=== PATIENT | female | born 1970 | race Caucasian/White ===

== ENCOUNTER → 2020-04-25 10:59 | Outpatient (BNVA) | payer BC, SELFPAY | PROVIDERS: Family Provider Nurse Practitioner; PCP Nurse Practitioner; Visit Provider Nurse Practitioner | DX: Z20.828 Contact with and (suspected) exposure to other viral communicable diseases (principal) | CPT/HCPCS: 87635 ==

== ENCOUNTER → 2021-02-04 15:45 | Outpatient (BNVA) | payer BC, SELFPAY | PROVIDERS: Family Provider Nurse Practitioner; PCP Nurse Practitioner; Visit Provider Obstetrics & Gynecology | DX: Z00.00 Encounter for general adult medical examination without abnormal findings (principal); Z12.39 Encounter for other screening for malignant neoplasm of breast; Z12.4 Encounter for screening for malignant neoplasm of cervix | CPT/HCPCS: 88175 ==

== ENCOUNTER 2021-02-05 13:38 | Outpatient (CLI) | payer BC, SELFPAY ==
--- NOTE | 2021-02-05 13:30 | MM_ITS ---
WS: [id number] SCREENING DIGITAL MAMMOGRAM WITH CAD HISTORY: Z12.39 - Encounter for other screening for malignant neop... COMPARISON: None available. Bilateral CC and MLO views submitted. Computer aided detection analyzed. Breast composition: The breasts are heterogeneously dense, which may obscure small masses. Bilateral asymmetries within each breast. There is no dominant mass or distortion. These findings are similar t hroughout each breast. MM/[place] [id number] IMPRESSION: BI-RADS: 2-Benign FOLLOW UP: 1 Year Follow-up
== END 2021-02-05 13:39 | disposition home or self-care (01) ==
LOC: RADSHAW 13:46
PROVIDERS: PCP Nurse Practitioner Family; Visit Provider Obstetrics & Gynecology
DX: Z12.31 Encounter for screening mammogram for malignant neoplasm of breast (principal)
CPT/HCPCS: 77067

== ENCOUNTER → 2023-08-18 12:06 | Outpatient (BNVA) | payer BC, SELFPAY | PROVIDERS: PCP Nurse Practitioner Family; Visit Provider Nurse Practitioner Family | DX: F41.9 Anxiety disorder, unspecified (principal); E66.3 Overweight; N95.9 Unspecified menopausal and perimenopausal disorder; Z83.3 Family history of diabetes mellitus; I10 Essential (primary) hypertension | CPT/HCPCS: 80053; 80061; 83036; 84443 ==

== ENCOUNTER → 2023-09-16 10:28 | Outpatient (BNVA) | payer BC, SELFPAY | PROVIDERS: PCP Nurse Practitioner Family; Visit Provider Nurse Practitioner Family | DX: G89.29 Other chronic pain (principal); M41.9 Scoliosis, unspecified; Z87.81 Personal history of (healed) traumatic fracture | CPT/HCPCS: 72100 ==

== ENCOUNTER → 2024-02-28 11:10 | Outpatient (BNVA) | payer SELFPAY | PROVIDERS: PCP Nurse Practitioner Family; Visit Provider Nurse Practitioner Family | DX: E78.2 Mixed hyperlipidemia (principal); F41.9 Anxiety disorder, unspecified; F33.41 Major depressive disorder, recurrent, in partial remission; I10 Essential (primary) hypertension | CPT/HCPCS: 80053; 80061; 85025 ==

== ENCOUNTER 2024-03-24 13:24 | Emergency (ER) | payer BC, SELFPAY ==
[2024-03-24 13:45] VITALS: BP 109/72; PULSE 102; RESP 17; TEMP 37.1; O2SAT 97; BMI 30.7
--- NOTE | 2024-03-24 13:56 | W.ED.ABDPA2 ---
HPI - Abdominal Pain General: Chief Complaint: Abdominal Pain Stated Complaint: abd pain, n/v Time Seen by Provider: 03/24/24 13:51 History of Present Illness: 53-year-old female comes in today with abdominal pain along with nausea and vomiting for about 1 week. Patient started having a fever today. Patient also noticed some blood in her stool. Patient has a history of hypertension. Patient denies any other chronic medical problems or abdominal surgeries. Patient has recently submitted a Cologuard test but has not had results yet. Associated Symptoms: Reports nausea and vomiting Related Data Previous Rx's Medication Instructions Recorded pen needle, diabetic 33 gauge x #100 ea 09/20/23 (Advocate Pen Needle) diphenhydramine 25 See Rx Instructions PO .QHS PRN 12/21/23 mg-acetaminophen 500 mg tablet pain 90 days #240 tabs (Tylenol PM Extra Strength) amitriptyline 10 mg tablet 20 mg (2 x 10 mg) PO DAILY 30 days 02/28/24 #60 tabs clonidine HCl 0.1 mg tablet See Rx Instructions .Route 02/28/24 .COMPLEX #30 tabs diclofenac sodium 100 mg 100 mg PO BID 30 days #60 tabs 02/28/24 tablet,extended release 24 hr doxepin 10 mg capsule 10 mg PO .QHS 30 days #30 caps 02/28/24 fexofenadine-pseudoephedrine ER 1 tab PO QAM PRN sinus symptoms 02/28/24 180 mg-240 mg tablet,ext.release #20 tabs 24 hr (Brisa-D 24 Hour) liraglutide 0.6 mg/0.1 mL (18 mg/3 3 mg (0.5 mL) SUBCUT Q24H 30 days 02/28/24 mL) subcutaneous pen injector #15 mL (Victoza 3-Segundo) lisinopril 10 mg tablet 10 mg PO BID 30 days #60 tabs 02/28/24 metoprolol succinate 25 mg 25 mg PO .hs 30 days #30 tabs 02/28/24 tablet,extended release 24 hr pantoprazole 40 mg tablet,delayed 40 mg PO DAILY 30 days #30 tabs 02/28/24 release paroxetine HCl 20 mg tablet See Rx Instructions .Route 02/28/24 .COMPLEX #30 tabs ciprofloxacin HCl 500 mg tablet 500 mg PO BID #14 tabs 03/24/24 (Cipro) prednisone 20 mg tablet 20 mg PO BID 7 days #14 tabs 03/24/24 Allergies Allergy/AdvReac Type Severity Reaction Status Date / Time No Known Allergies Allergy Verified 03/24/24 13:48 Review of Systems General: Reports: 10 or more systems reviewed and unremarkable except in HPI and below GI: Reports: abdominal pain, nausea and vomiting PFS ED PFSH: Medical History (Updated 03/24/24 @ 15:39 by MORA Charles) Anxiety Diagnosed in 2019 and has been on medication as needed managed by her primary care provider. She does not have a therapist. No pertinent past medical history Denies diabetes, asthma, hypertension, seizures, DVT/PE PCP: MORA [facility] Surgical History History of foot surgery x 2 -2010--fracture of right ankle with surgery -2010--fracture of left leg with surgery History of tubal ligation Laparoscopic procedure done in 1999 History of dilation and curettage --done for retained placenta after delivery of her demise Family History Father Hypertension Stroke Heart disease Family/Other Hyperlipidemia paternal aunt Breast cancer maternal cousin, diagnosed at age 61 Uterine cancer paternal aunt, diagnosed in her 40s or 50s Heart disease paternal aunt Denies family history of Ovarian cancer Diabetes Thyroid disease Social History Smoking and tobacco/nicotine status: former use of tobacco/nicotine Quit status (tobacco/nicotine): has quit using Lives independently: Yes Household members: spouse Housing: House Marital status: Current occupational status: employed Sexually active: Yes Current gender identity: Female Physical Exam Const: COMMON NORMALS: alert HENMT: COMMON NORMALS: normocephalic HEAD & SCALP: normocephalic Neck/C-Spine: COMMON NORMALS: full ROM Resp: COMMON NORMALS: normal respiratory effort Cardio: COMMON NORMALS: regular rate RATE: regular rate GI: COMMON NORMALS: Soft to palpation PALPATION: Yes Soft to palpation, Yes Tenderness to palpation present (GI) (General), No Guarding due to palpation present (GI) and No Rigid due to palpation Back/Pelvis: COMMON NORMALS: thoracic and lumbar spine normal to inspection Extremity: COMMON NORMALS: full ROM Neuro: SENSORIUM/ORIENTATION: Yes alert Skin: COMMON NORMALS: turgor normal GENERAL SKIN EXAM: turgor normal Course Vital Signs: Vital signs: Vital Signs Temperature 98.7 F 03/24/24 13:45 Pulse Rate 100 03/24/24 15:40 Respiratory Rate 16 03/24/24 15:40 Blood Pressure 164/105 03/24/24 15:40 Pulse Oximetry 98 03/24/24 15:40 Oxygen Delivery Me thod Room Air 03/24/24 15:40 MDM - Abdominal Pain Medical Decision Making 53-year-old female comes in today for complaints of abdominal pain with nausea and vomiting for about 1 week. Patient noticed a fever starting last night. Patient appears nontoxic. Patient appears in mild pain. Patient reports pain on a scale of 10 at a 8. Abdomen is soft with some generalized tenderness. No guarding. Positive rebound. Differential diagnosis includes not limited to diverticulitis, appendicitis, gallbladder disease, renal calculi, gastroenteritis, colitis. CBC noted some leukocytosis at 16,000. CMP showed some mild elevation in alkaline phosphatase in the 200s. Patient sodium was 133. Urinalysis was unremarkable. CT of the abdomen pelvis noted diffuse colitis with some lymphadenopathy. Radiologist recommended follow-up for colonoscopy for further evaluation due to the lymphadenopathy. Patient will be treated for infectious versus inflammatory colitis with prednisone and Cipro. Patient and family both reported understanding. Lab Data 03/24/24 14:16 03/24/24 14:16 Labs/Radiology: Radiology Impressions Abdomen/Pelvis CT 03/24/24 13:59 IMPRESSION: 1. Diffuse Wall Thickening: Noted in the ascending colon, hepatic flexure, and transverse colon, concerning for colitis. 2. Marked High-Density Material: Observed within the distal small bowel, cecum, and distal large bowel, likely representing ingested material. 3. Right Lower Quadrant Lymphadenopathy: Measuring up to 1 centimeter. Colonoscopy is recommended after symptom resolution to exclude an underlying neoplastic process. Laboratory Results WBC 16.27 10^3/uL (3.29-11.43) H 03/24/24 14:16 RBC 3.39 10^6/uL (3.85-5.65) L 03/24/24 14:16 Hgb 9.40 g/dL (11.27-16.99) L 03/24/24 14:16 Hct 30.0 % (36-47) L 03/24/24 14:16 MCV 88.5 fl (85-98) 03/24/24 14:16 MCH 27.7 pg (27-33) 03/24/24 14:16 MCHC 31.3 g/dL (30-55) 03/24/24 14:16 RDW 16.8 % (12.1-15.1) H 03/24/24 14:16 Plt Count 763 10^3/cmm (157-399) H 03/24/24 14:16 MPV 8.5 fL (7.4-10.4) 03/24/24 14:16 Neut % (Auto) 85.0 % 03/24/24 14:16 Lymph % (Auto) 10.3 % 03/24/24 14:16 [place] % (Auto) 3.7 % 03/24/24 14:16 Eos % (Auto) 0.3 % 03/24/24 14:16 Baso % (Auto) 0.2 % 03/24/24 14:16 Neut # (Auto) 13.82 10^3/uL (1.8-7.7) H 03/24/24 14:16 Lymph # (Auto) 1.7 10^3/uL (0.8-4.8) 03/24/24 14:16 [place] # (Auto) 0.6 10^3/uL (0.2-0.9) 03/24/24 14:16 Eos # (Auto) 0.1 10^3/uL (0.0-0.8) 03/24/24 14:16 Baso # (Auto) 0.0 10^3/uL (0.0-0.1) 03/24/24 14:16 Nucleated RBC % (auto) 0 % 03/24/24 14:16 Nucleated RBCs # 0.0 /100WBC 03/24/24 14:16 Sodium 133 mmol/L (136-145) L 03/24/24 14:16 Potassium 4.3 mmol/L (3.5-5.1) 03/24/24 14:16 Chloride 99 mmol/L (98-107) 03/24/24 14:16 Carbon Dioxide 23 mmol/L (22-29) 03/24/24 14:16 Anion Gap 15.3 (5-19) 03/24/24 14:16 BUN 5 mg/dL (6-20) L 03/24/24 14:16 Creatinine 0.7 mg/dL (0.5-0.9) 03/24/24 14:16 GFR Calculation 86.9 mL/min (90-130) L 03/24/24 14:16 Glucose 115 mg/dL (65-115) 03/24/24 14:16 Calculated Osmolality 274 mOsm/kg (285-295) L 03/24/24 14:16 Calcium 8.3 mg/dL (8.5-10.5) L 03/24/24 14:16 Total Bilirubin 0.2 mg/dL (0.15-1.2) 03/24/24 14:16 AST 27 U/L (0-32) 03/24/24 14:16 ALT 16 U/L (0-33) 03/24/24 14:16 Alkaline Phosphatase 247 U/L (35-105) H 03/24/24 14:16 Total Protein 6.6 g/dL (6.6-8.7) 03/24/24 14:16 Albumin 3.1 g/dL (3.5-5.2) L 03/24/24 14:16 Globulin 3.5 g/dL (1.3-4.6) 03/24/24 14:16 Lipase 7 U/L (13-60) L 03/24/24 14:16 Urine Color Yellow (Yellow) 03/24/24 14:15 Urine Appearance Clear (CLEAR) 03/24/24 14:15 Urine pH 6.5 (5-7) 03/24/24 14:15 Ur Specific [place]den 1.009 (1.005-1.030) 03/24/24 14:15 Urine Protein Negative (Negative) 03/24/24 14:15 Urine Glucose (UA) Negative (Normal) 03/24/24 14:15 Urine Ketones Negative (Negative) 03/24/24 14:15 Urine Blood Negative (Negative) 03/24/24 14:15 Urine Nitrate Negative (Negative) 03/24/24 14:15 Urine Bilirubin Negative (Negative) 03/24/24 14:15 Urine Urobilinogen 0.2 mg/dL (Negative) 03/24/24 14:15 Ur Leukocyte Esterase 2+ (Negative) A 03/24/24 14:15 Urine RBC 0-2 /hpf (0-2) 03/24/24 14:15 Urine WBC 6-10 /hpf (0-5) 03/24/24 14:15 Ur Squamous Epith Cells 11-20 /hpf (0-5) 03/24/24 14:15 Amorphous Sediment Not Reportable 03/24/24 14:15 Urine Bacteria 2+ /hpf (NONE) H 03/24/24 14:15 Hyaline Casts 0-4 /lpf H 03/24/24 14:15 All radiology interpretation(s) finalized by discharge Discharge Plan Discharge Patient Disposition: Home Clinical Impression: Colitis Condition: Stable Prescriptions: New Cipro 500 mg tablet 500 mg PO BID Qty: 14 0RF prednisone 20 mg tablet 20 mg PO BID 7 Days Qty: 14 0RF No Action (DME) pen needle, diabetic [Advocate Pen Needle] 33 gauge x 5/32 needle See Rx Instructions .Route Qty: 100 1RF Rx Instructions: As directed Tylenol PM Extra Strength 25-500 mg tablet See Rx Instructions PO .QHS PRN (Reason: pain) 90 Days Qty: 240 0RF Rx Instructions: 1-2 tabs orally QHS PRN; administer while awake amitriptyline 10 mg tablet 20 mg PO DAILY 30 Days Qty: 60 3RF clonidine HCl 0.1 mg tablet See Rx Instructions .ROUTE .COMPLEX Qty: 30 3RF Dose Instruction: TAKE ONE TABLET BY MOUTH At Bedtime Rx Instructions: TAKE ONE TABLET BY MOUTH At Bedtime diclofenac sodium 100 mg tablet extended release 24 hr 100 mg PO BID 30 Days Qty: 60 3RF doxepin 10 mg capsule 10 mg PO .QHS 30 Days Qty: 30 3RF lisinopril 10 mg tablet 10 mg PO BID 30 Days Qty: 60 3RF metoprolol succinate 25 mg tablet extended release 24 hr 25 mg PO .hs 30 Days Qty: 30 3RF pantoprazole 40 mg tablet,delayed release (DR/EC) 40 mg PO DAILY 30 Days Qty: 30 3RF paroxetine HCl 20 mg tablet See Rx Instructions .ROUTE .COMPLEX Qty: 30 3RF Dose Instruction: TAKE ONE TABLET BY MOUTH DAILY Rx Instructions: TAKE ONE TABLET BY MOUTH DAILY fexofenadine-pseudoephedrine [Brisa-D 24 Hour] 180-240 mg tablet extended release 24 hr 1 tab PO QAM PRN (Reason: sinus symptoms) Qty: 20 0RF Victoza 3-Segundo 0.6 mg/0.1 mL (18 mg/3 mL) pen injector 3 mg SUBCUT Q24H 30 Days Qty: 15 3RF Discharge Orders: Discharge ED (Routine); Ordered 03/24/24 Ordered By: Nickolas Flowers Referrals: Nya Casarez NP [Primary Care Provider] - Discharge Diet: Usual diet Discharge Activity: Increase activity as tolerated Patient Instructions: Colitis (ED) Activity Restrictions/Additional Instructions: Healthy diet and activity. Follow-up with surgeon for colonoscopy. This is recommended due to the abnormality on your CT scan. He will be treated at this time for infectious versus inflammatory colitis. A colonoscopy with biopsy is recommended for further evaluation. Drink plenty of water and fluids. Return to ER for worsening pain, fever greater than 100.4, or new concerns. Coding Level of Care Code ED [employer] Worker for Chalino Yao
--- NOTE | 2024-03-24 13:59 | CTR_ITS ---
PROCEDURE INFORMATION: Exam: CT Abdomen And Pelvis With Contrast Exam date and time: 03/24/2024 2:24 PM Age: 53 years old Clinical indication: Abdominal pain; Localized; Right lower quadrant (rlq); Additional info: Abd pain, general, fever TECHNIQUE: Imaging protocol: Computed tomography of the abdomen and pelvis with contrast. Radiation optimization: All CT scans at this facility use at least one of these dose optimization techniques: automated exposure control; mA and/or kV adjustment per patient size (includes targeted exams where dose is matched to clinical indication); or iterative reconstruction. Contrast material: OMNI 350; Contrast volume: 100 ml; Contrast route: INTRAVENOUS (IV); COMPARISON: CR XR lumbar spine 2-3V* [id number] 09/16/2023 10:33 AM RADIATION DOSE METRICS: Total DLP (mGy-cm): 872.7 FINDINGS: Diaphragm: Small hiatal hernia. Liver: Normal. No mass. Gallbladder and biliary ducts: Normal. No calcified stones. No ductal dilation. Pancreas: Normal. No ductal dilation. Spleen: Normal. No splenomegaly. Adrenal glands: A 2.3 x 1.7-centimeter left adrenal nodule with intrinsic calcifications and a Hounsfield unit measurement of 16, likely representing an adenoma with prior bleeding. Kidneys and ureters: No suspicious renal mass, hydronephrosis, or nephrolithiasis. Ureters are normal. Stomach and bowel: High-density material observed along the distal small bowel and cecum, with upstream submucosal edema and wall thickening of the ascending colon, hepatic flexure, and proximal transverse colon, accompanied by hyperemia. Appendix: No evidence of appendicitis. Intraperitoneal space: Unremarkable. No free air. No significant fluid collection. Vasculature: Unremarkable. No abdominal aortic aneurysm. Lymph nodes: Enlarged mediastinal lymph nodes and right lower quadrant lymphadenopathy, measuring up to 1 centimeter. Urinary bladder: Unremarkable as visualized. Reproductive: Unremarkable as visualized. Bones/joints: Unremarkable. No acute fracture. Soft tissues: Unremarkable. CT/CT abdomen pelvis w con* [id number] IMPRESSION: 1. Diffuse Wall Thickening: Noted in the ascending colon, hepatic flexure, and transverse colon, concerning for colitis. 2. Marked High-Density Material: Observed within the distal small bowel, cecum, and distal large bowel, likely representing ingested material. 3. Right Lower Quadrant Lymphadenopathy: Measuring up to 1 centimeter. Colonoscopy is recommended after symptom resolution to exclude an underlying neoplastic process.
[2024-03-24 14:18] VITALS: BP 110/75; PULSE 100; RESP 16; O2SAT 98
[2024-03-24 14:22] LABS: Basophils % 0.2 %; Eosinophils # 0.1 10^3/uL (0.0-0.8); Eosinophils % 0.3 %; Lymphocytes # 1.7 10^3/uL (0.8-4.8); Lymphocytes % 10.3 %; Mean Corpuscular HGB Conc 31.3 g/dL (30-55); Mean Corpuscular Hemoglobin 27.7 pg (27-33); Mean Corpuscular Volume 88.5 fl (85-98); Mean Platelet Volume 8.5 fL (7.4-10.4); Monocytes # 0.6 10^3/uL (0.2-0.9); Monocytes % 3.7 %; Neutrophils # 13.82 10^3/uL (1.8-7.7); Nucleated Red Blood Cells % 0 %; Platelet Count 763 10^3/cmm (157-399); Red Blood Count 3.39 10^6/uL (3.85-5.65); Red Cell Distribution Width 16.8 % (12.1-15.1); White Blood Count 16.27 10^3/uL (3.29-11.43)
[2024-03-24 14:24] LABS: Charge for UA Resulting for Rev
[2024-03-24] MEDS: iohexol 350 mg/mL 500 mL Btl (per mL) IV (14:26)
[2024-03-24 14:34] LABS: Bilirubin Urine Negative (Negative); Blood Urine Negative (Negative); Glucose Urine UA Negative (Normal); Ketones Urine Negative (Negative); Leukocyte Esterase Urine 2+ (Negative); Nitrate Urine Negative (Negative); Protein Urine Negative (Negative); Specific Gravity, Urine 1.009 (1.005-1.030); Urine Appearance Clear (CLEAR); Urine Color Yellow (Yellow); Urobilinogen Urine 0.2 mg/dL (Negative); pH Urine 6.5 (5-7)
[2024-03-24 14:36] LABS: Bacteria Urine 2+ /hpf; Hyaline Casts Urine 0-4 /lpf; RBC Urine 0-2 /hpf (0-2)
[2024-03-24] MEDS: sodium chloride 0.9% 1,000 ML 999 ML IV (14:38)
[2024-03-24 14:43] LABS: Alanine Aminotransferase 16 U/L (0-33); Albumin Level 3.1 g/dL (3.5-5.2); Alkaline Phosphatase 247 U/L (35-105); Anion Gap 15.3 (5-19); Aspartate Amino Transferase 27 U/L (0-32); Blood Urea Nitrogen 5 mg/dL (6-20); Calcium 8.3 mg/dL (8.5-10.5); Carbon Dioxide 23 mmol/L (22-29); Chloride 99 mmol/L (98-107); Creatinine Clr Calc Pharmacy 97.1447; Globulin 3.5 g/dL (1.3-4.6); Glomerular Filtration Rate 86.9 mL/min (90-130); Glucose 115 mg/dL (65-115); Lipase 7 U/L (13-60); Osmolality Calculated 274 mOsm/kg (285-295); Potassium 4.3 mmol/L (3.5-5.1); Sodium 133 mmol/L (136-145); Total Bilirubin 0.2 mg/dL (0.15-1.2); Total Protein 6.6 g/dL (6.6-8.7)
[2024-03-24 15:40] VITALS: BP 164/105; PULSE 100; RESP 16; O2SAT 98
[2024-03-24] MEDS: ciprofloxacin 500 mg Tablet PO (15:45)
[2024-03-24] MEDS: predniSONE 20 mg Tablet PO (15:45)
[2024-03-24 16:00] VITALS: BP 167/112; PULSE 104; RESP 16; O2SAT 97
[2024-03-24 16:10] VITALS: BP 167/112; PULSE 104; RESP 16; TEMP 37.1; O2SAT 97
--- NOTE | 2024-03-26 09:38 | DCPLANNER ---
messaged gen surg for er f/u
== END 2024-03-24 16:10 | disposition home or self-care (01) ==
PROVIDERS: Emergency Provider Nurse Practitioner Family; PCP Nurse Practitioner Family
DX: K52.9 Noninfective gastroenteritis and colitis, unspecified (principal); Z87.891 Personal history of nicotine dependence
CPT/HCPCS: 36415; 74177; 80053; 81003; 81015; 83690; 85025; 99285; J7030; J7512; Q9967

== ENCOUNTER 2024-05-10 07:52 | Outpatient (CLI) | payer BC, SELFPAY ==
[2024-05-10 08:11] LABS: Basophils % 0.4 %; Eosinophils # 0.1 10^3/uL (0.0-0.8); Eosinophils % 1.1 %; Hematocrit 28.7 % (36-47); Lymphocytes # 1.9 10^3/uL (0.8-4.8); Lymphocytes % 19.6 %; Mean Corpuscular Hemoglobin 27.6 pg (27-33); Mean Corpuscular Volume 88.9 fl (85-98); Mean Platelet Volume 8.3 fL (7.4-10.4); Monocytes # 0.8 10^3/uL (0.2-0.9); Monocytes % 8.4 %; Neutrophils # 6.72 10^3/uL (1.8-7.7); Nucleated Red Blood Cells % 0 %; Platelet Count 752 10^3/cmm (157-399); Red Blood Count 3.23 10^6/uL (3.85-5.65); White Blood Count 9.61 10^3/uL (3.29-11.43)
[2024-05-10 08:30] LABS: Anion Gap 17.8 (5-19); Blood Urea Nitrogen 11 mg/dL (6-20); Calcium 7.3 mg/dL (8.5-10.5); Carbon Dioxide 23 mmol/L (22-29); Chloride 98 mmol/L (98-107); Glomerular Filtration Rate 51.6 mL/min (90-130); Glucose 106 mg/dL (65-115); Osmolality Calculated 278 mOsm/kg (285-295); Potassium 4.8 mmol/L (3.5-5.1); Sodium 134 mmol/L (136-145)
== END 2024-05-10 07:53 | disposition home or self-care (01) ==
LOC: LAB 07:56
PROVIDERS: PCP Nurse Practitioner Family; Visit Provider Student in an Organized Health Care Education/Training Program
DX: Z51.81 Encounter for therapeutic drug level monitoring (principal); R10.9 Unspecified abdominal pain; Z79.1 Long term (current) use of non-steroidal anti-inflammatories (NSAID)
CPT/HCPCS: 36415; 80048; 85025

== ENCOUNTER 2024-05-15 07:29 | Day surgery (SDC) | payer BC, SELFPAY ==
[2024-05-15 07:42] VITALS: BP 100/79; PULSE 118; RESP 18; TEMP 36.6; O2SAT 99
[2024-05-15] MEDS: sodium chloride 0.9% 1,000 ML 30 ML IV (07:53)
--- NOTE | 2024-05-15 08:00 | ANES.PREANE2 ---
Pre-Anesthetic Assessment Height/Weight: Height 1.65 m Weight 81.193 kg Temp Pulse Resp BP Pulse Ox O2 Del Method 97.8 F 118 H 18 100/79 99 Room Air 05/15/24 07:42 05/15/24 07:42 05/15/24 07:42 05/15/24 07:42 05/15/24 07:42 05/15/24 07:42 Preop Diagnosis: non-specific colitis Operation Date: 05/15/24 08:35 Proposed Procedures p Colonoscopy- 84499, g0105, k52.9(Not Applicable) - Jame Ibarra MD Familial anesthetic complications: none Was Beta Jean-Pierre taken within 24 hours: Yes Last intake: Intake Last Liquid Date 05/14/24 Last Liquid Time 21:00 Last Solid Date 05/13/24 Last Solid Time 06:00 Social No alcohol and No tobacco Exam alert, oriented x 3, clear to auscultation bilaterally and regular rate & rhythm Airway Submandibular: within normal limits Cervical ROM: within normal limits Mallampati: Class I Dentition: false (upper and lower plate removed) Pulmonary None reported CV/HEM Hypertension None reported Hepatic None reported GI Gastroesophageal Reflux Disease chronic diarrhea and vomiting. No nausea today. Metabolic None reported Musc/skel None reported Neuropsych Anxiety Anesthetic Plan ASA status: 2 Anesthesia: MAC Medications/Allergies Home Medications Medication Instructions Recorded Confirmed Last Taken Type amitriptyline 10 mg tablet 20 mg (2 x 10 mg) PO DAILY 30 days 04/27/24 05/10/24 05/14/24 Rx #60 tabs doxepin 10 mg capsule 10 mg PO .QHS 30 days #30 caps 04/27/24 05/10/24 05/14/24 Rx liraglutide 0.6 mg/0.1 mL (18 mg/3 3 mg (0.5 mL) SUBCUT Q24H 30 days 04/27/24 05/10/24 05/10/24 Rx mL) subcutaneous pen injector #15 mL (Victoza 3-Segundo) lisinopril 10 mg tablet 10 mg PO BID 30 days #60 tabs 04/27/24 05/10/24 05/14/24 Rx metoprolol succinate 25 mg 25 mg PO .hs 30 days #30 tabs 04/27/24 05/10/24 05/14/24 Rx tablet,extended release 24 hr ondansetron 4 mg disintegrating 4 mg PO Q6H PRN nausea and 04/27/24 05/10/24 05/14/24 Rx tablet vomiting #30 tabs pen needle, diabetic 33 gauge x #100 ea 04/27/24 05/10/24 05/14/24 Rx 5/32 (Advocate Pen Needle) tizanidine 4 mg tablet 4 mg PO Q8H PRN muscle spasticity 04/27/24 05/10/24 05/14/24 Rx #90 tabs clonidine HCl 0.1 mg tablet 0.1 mg PO DAILY 05/10/24 05/10/24 05/15/24 History pantoprazole 40 mg tablet,delayed 40 mg PO BID 30 days #60 tabs 05/10/24 05/10/24 05/14/24 Rx release paroxetine HCl 20 mg tablet 20 mg PO DAILY 05/10/24 05/10/24 05/14/24 History Allergies Allergy/AdvReac Type Severity Reaction Status Date / Time No Known Allergies Allergy Verified 05/10/24 08:26 Current Medications Generic Name Dose Route Start Last Admin Trade Name Freq PRN Reason Stop Dose Admin Sodium Chloride 1,000 mls @ 30 mls/hr 05/15/24 07:45 05/15/24 07:53 Sodium Chloride 0.9% IV 05/16/24 07:44 30 mls/hr .Q24H ISABELLE Administration PFSH Anesthesia Medical History Anxiety Diagnosed in 2019 and has been on medication as needed managed by her primary care provider. She does not have a therapist. No pertinent past medical history Denies diabetes, asthma, hypertension, seizures, DVT/PE PCP: MORA Henley Surgical History History of foot surgery x 2 -2010--fracture of right ankle with surgery -2010--fracture of left leg with surgery History of tubal ligation Laparoscopic procedure done in 1999 History of dilation and curettage --done for retained placenta after delivery of her demise Family History Father Hypertension Stroke Heart disease Family/Other Hyperlipidemia paternal aunt Breast cancer maternal cousin, diagnosed at age 61 Uterine cancer paternal aunt, diagnosed in her 40s or 50s Heart disease paternal aunt Denies family history of Ovarian cancer Diabetes Thyroid disease Social History Smoking and tobacco/nicotine status: never used tobacco/nicotine Quit status (tobacco/nicotine): has quit using Lives independently: Yes Household members: spouse Housing: House Marital status: Current occupational status: employed Sexually active: Yes Current gender identity: Female Data Anesthesia Cardiac Studies: No Data to Display
--- NOTE | 2024-05-15 08:39 | W.PM.OPSUD ---
Surgery/Procedure H&P Update DATE OF PROCEDURE: May 15, 2024 DATE H&P PERFORMED: 04/05/24 H&P UPDATE INFORMATION: I have reviewed H&P completed within last 30 days, I have examined patient prior to procedure and No changes to prior documentation PREOP DIAGNOSIS: non-specific colitis PLANNED PROCEDURE: Operation Date: 05/15/24 08:35 Proposed Procedures p Colonoscopy- 87225, g0105, k52.9(Not Applicable) - Jame Ibarra MD
[2024-05-15 08:40] VITALS: BP 94/63; PULSE 76; RESP 16; TEMP 36.7; O2SAT 97
[2024-05-15 08:50] VITALS: BP 93/63; PULSE 73; RESP 18; O2SAT 96
[2024-05-15 09:00] VITALS: BP 99/70; PULSE 77; RESP 18; O2SAT 98
--- NOTE | 2024-05-15 09:21 | ANE.PACU2 ---
Inpatient post-anesthesia follow up: Airway intact: Yes Vital signs: Temperature 98.1 F Pulse Rate 77 Respiratory Rate 18 Blood Pressure 99/70 Pulse Oximetry 98 Oxygen Delivery Me thod Room Air Oxygen Flow Rate Fraction of Inspir ed Oxygen Hydration adequate: Yes Nausea and vomiting: No Pain level: 1 Mental status: Baseline
== END 2024-05-15 09:21 | disposition home or self-care (01) ==
PROVIDERS: Visit Provider Student in an Organized Health Care Education/Training Program
PROC: 0DJD8ZZ Inspection of Lower Intestinal Tract, Via Natural or Artificial Opening Endoscopic (ICD-10-PCS; CPT 45378; principal; 2024-05-15 08:35)
PROC: 0DJ08ZZ Inspection of Upper Intestinal Tract, Via Natural or Artificial Opening Endoscopic (ICD-10-PCS; CPT 43235; 2024-05-15 08:35)
DX: K52.9 Noninfective gastroenteritis and colitis, unspecified (principal); K21.9 Gastro-esophageal reflux disease without esophagitis; K63.5 Polyp of colon; K29.70 Gastritis, unspecified, without bleeding; I10 Essential (primary) hypertension; F41.9 Anxiety disorder, unspecified
CPT/HCPCS: 43239; 45380; 88305; J2371; J2704; J7030

== ENCOUNTER 2024-05-28 08:51 | Outpatient (CLI) | payer BC, SELFPAY ==
--- NOTE | 2024-05-28 09:00 | CT_ITS ---
WS: [id number] CT ABDOMEN AND PELVIS WITH CONTRAST HISTORY: non specific colitis TECHNIQUE: Imaging performed of the abdomen and pelvis with IV contrast. Single phase imaging of the abdomen. Coronal and sagittal reformats are submitted. All CT scans at [facility] use at [address] one of these dose optimization techniques: automated exposure control; mA and/or kV adjustment per patient size (includes targeted exams where dose is matched to clinical indication); or iterative re construction. IV CONTRAST: Omnipaque 350; 100 mL IV. Oral contrast: No DLP: 487.50 mGy.cm COMPARISON: 03/24/2024 Lower thorax: Lung bases are clear. Heart is normal size. Small hiatal hernia. Liver/biliary system: Mild hepatic steatosis with a fatty sparing along the falciform ligament. No ma ss. Gallbladder: Normal. No gallstones or wall thickening. No pericholecystic fluid. Pancreas: Normal size pancreas and pancreatic duct. No adjacent inflammation. Spleen: Normal size spleen. No mass or infarct. Adrenal glands: LEFT adrenal mass is slightly lobulated and contains peripheral calcification. Adrena l mass measures 1.4 x 2.6 cm. Similar in size to the prior study. Mass has been present since 05/18/20 13 with minimal change in size. Calcification is increasing. Right kidney: Normal. Left kidney: Normal. Aorta: Normal. Lymphadenopathy: There are several small central mesenteric and RIGHT lower quadrant lymph nodes. The re are a few lymph nodes also adjacent to the hepatic flexure. Largest lymph node measures 10 mm. Free fluid: None. GI tract: Normally distended stomach. No small bowel obstruction. Persistent wall thickening with lum inal narrowing beginning in the ascending colon through the hepatic flexure and proximal transverse c olon. The most significant wall thickening is just proximal to the hepatic flexure with the wall sonali uring up to 9.4 mm. Mild hyperemia with narrowing of the lumen with contiguous extension into the tra nsverse colon. Moderate improvement since 03/24/2024 but still abnormal. The distal colon with moderat e fecal retention. No diverticulosis of any significance. Appendix not identified. Abdominal wall: Small umbilical hernia. Pelvis: No free fluid or adenopathy within the pelvis. Bones: Unremarkable. CT/CT abdomen pelvis w con* [id number] IMPRESSION: 1. Moderate improvement in the acute inflammatory process described in the col on on 03/24/2024. 2. There is persistent wall thickening, hyperemia and luminal narrowing involv ing the ascending colon through the hepatic flexure and proximal transverse col on that needs to be further evaluated. Colonoscopy recommended. May be postinfl ammatory narrowing but neoplasm needs to be excluded. There are numerous small lymph nodes in the mesentery and RIGHT lower quadrant measuring up to 10 mm. Ly mph nodes have decreased in size. 3. No free air. 4. Hepatic steatosis with focal areas of sparing. 5. Long-term stability LEFT adrenal mass.
[2024-05-28] MEDS: iohexol 350 mg/mL 500 mL Btl (per mL) IV (09:42)
== END 2024-05-28 08:52 | disposition home or self-care (01) ==
PROVIDERS: PCP Nurse Practitioner Family; Visit Provider Student in an Organized Health Care Education/Training Program
DX: K52.9 Noninfective gastroenteritis and colitis, unspecified (principal); K56.690 Other partial intestinal obstruction; K55.9 Vascular disorder of intestine, unspecified; K76.0 Fatty (change of) liver, not elsewhere classified; D35.02 Benign neoplasm of left adrenal gland
CPT/HCPCS: 74177

== ENCOUNTER → 2024-07-11 09:43 | Outpatient (BNVA) | payer BC, SELFPAY | PROVIDERS: Visit Provider Nurse Practitioner Family | DX: J02.9 Acute pharyngitis, unspecified (principal); D64.9 Anemia, unspecified; E55.9 Vitamin D deficiency, unspecified; R11.2 Nausea with vomiting, unspecified | CPT/HCPCS: 80053; 82306; 82607; 82728; 82746; 83550; 83735; 84443; 85025; 86003; 86008; 87071; 87880 ==

== ENCOUNTER → 2024-07-27 11:44 | Outpatient (BNVA) | payer BC, SELFPAY | PROVIDERS: PCP Nurse Practitioner Family; Visit Provider Nurse Practitioner Family | DX: R79.89 Other specified abnormal findings of blood chemistry (principal) | CPT/HCPCS: 80053; 85025; 86705; 86706; 86709; 86803; 87340 ==

== ENCOUNTER 2024-08-01 07:54 | Outpatient (CLI) | payer BC, SELFPAY ==
--- NOTE | 2024-08-01 08:00 | USR_ITS ---
PROCEDURE INFORMATION: Exam: US Soft Tissue Head and Neck, Soft Tissue Exam date and time: 08/01/2024 8:06 AM Age: 53 years old Clinical indication: Mass, lump, or swelling in neck; Right and left and bilateral and anterior and posterior; Additional info: R59.1 - generalized enlarged lymph nodes TECHNIQUE: Imaging protocol: Real-time ultrasound scan of the head and neck with image documentation. Exam focused on the soft tissue in the region of clinical concern. COMPARISON: No relevant prior studies available. FINDINGS: Sonographic evaluation of palpable areas in the neck reveal scattered lymph nodes which have no pathological features. The largest measures about 1.8 cm in length. No other mass or fluid collection is evident. US/US soft tissue head neck [id number] IMPRESSION: Scattered lymph nodes are noted as described above.
--- NOTE | 2024-08-01 08:30 | USR_ITS ---
PROCEDURE INFORMATION: Exam: US Abdomen, Limited; Right Upper Quadrant Exam date and time: 08/01/2024 8:20 AM Age: 53 years old Clinical indication: Abnormal lab test; Other: Abnormal findings of blood chemistry; Additional info: R79.89 - other specified abnormal findings of blood chemi. . . TECHNIQUE: Imaging protocol: Real time ultrasound of the abdomen with image documentation. Limited exam focused on the right upper quadrant. COMPARISON: CT abdomen pelvis w con* [id number] 05/28/2024 9:27 AM FINDINGS: Liver: Liver is borderline enlarged measuring about 17.1 cm in length. Echogenicity suggests fatty infiltration. Limited visualization of the portal vein demonstrates normal directional flow. Gallbladder: Normal. No gallstones. There is no gallbladder wall thickening. Biliary ducts: Normal. No stones. No dilation. Pancreas: The pancreas was obscured by gas. Right kidney: Normal. No mass. No hydronephrosis. Other findings: Aorta and inferior vena cava are normal where visualized. US/US liver [id number] IMPRESSION: Borderline enlarged liver with fatty infiltration. No acute findings.
== END 2024-08-01 07:55 | disposition home or self-care (01) ==
LOC: RAD 07:55
PROVIDERS: PCP Nurse Practitioner Family; Visit Provider Nurse Practitioner Family
DX: R59.1 Generalized enlarged lymph nodes (principal); R79.89 Other specified abnormal findings of blood chemistry; R11.2 Nausea with vomiting, unspecified; K76.0 Fatty (change of) liver, not elsewhere classified
CPT/HCPCS: 76536; 76705

== ENCOUNTER → 2024-08-10 11:43 | Outpatient (BNVA) | payer BC, SELFPAY | PROVIDERS: PCP Nurse Practitioner Family; Visit Provider Nurse Practitioner Family | DX: E53.8 Deficiency of other specified B group vitamins (principal) | CPT/HCPCS: 80053; 82746; 85025 ==

== ENCOUNTER 2024-08-16 14:44 | Emergency (ER) | payer BC, SELFPAY ==
[2024-08-16 15:32] VITALS: BP 125/92; PULSE 134; RESP 14; TEMP 36.8; O2SAT 98; BMI 25.4
--- NOTE | 2024-08-16 15:41 | ECG_ITS ---
[facility] Test Date: 2024-08-16 Pat Name: Graciela Woodson Department: Room: Gender: Female Academic Support Director: : 1970 Requested By: Rehana Padilla Order Number: [id number] Jaison MD: Adán Jackman M.D. Measurements Intervals [place] Rate: 135 P: 8 GA: 134 QRS: 8 QRSD: 81 T: 169 QT: 331 QTc: 497 Interpretive Statements SINUS TACHYCARDIA POSSIBLE ANTERIOR MYOCARDIAL INFARCTION , PROBABLY OLD [30 ms Q WAVE IN V3/V4, OR R < 0.2 mV IN V4] MODERATE T-WAVE ABNORMALITY, CONSIDER LATERAL ISCHEMIA [-0.1+ mV T-WAVE IN I/aVL/V5/V6] Compared to ECG 11/26/2016 07:44:48 Myocardial infarct finding now present Possible ischemia now present Sinus rhythm no longer present T-wave abnormality still present Electronically Signed On 08-16-2024 16:07:24 [employer] ADMINISTRATOR by Adán Jackman M.[email or web address]
[2024-08-16 16:42] LABS: Basophils % 0.3 %; Hematocrit 31.9 % (36-47); Lymphocytes # 1.8 10^3/uL (0.8-4.8); Lymphocytes % 19.3 %; Mean Corpuscular HGB Conc 32.9 g/dL (30-55); Mean Corpuscular Hemoglobin 28.8 pg (27-33); Mean Corpuscular Volume 87.6 fl (85-98); Mean Platelet Volume 9.2 fL (7.4-10.4); Monocytes # 0.6 10^3/uL (0.2-0.9); Neutrophils # 7.06 10^3/uL (1.8-7.7); Neutrophils % 74.1 %; Nucleated Red Blood Cells % 0 %; Platelet Count 443 10^3/cmm (157-399); Red Blood Count 3.64 10^6/uL (3.85-5.65); Red Cell Distribution Width 19.7 % (12.1-15.1); White Blood Count 9.53 10^3/uL (3.29-11.43)
--- NOTE | 2024-08-16 16:46 | ED_ITS ---
Documented by User: Hector Smith DO 08/22/24 09:15 HPI - Nausea/Vomiting/Diarrhea 2 General: Chief complaint: Nausea/Vomiting/Diarrhea Stated complaint: vomitting Time Seen by Provider: 08/16/24 16:23 History of Present Illness: 53-year-old female presents emergency ro om with complaint of persistent nausea and vomiting. This has been going on for several months intermittently. She has seen her primary care provider nurse practitioner for notes in the chart were reviewed. Data recently checked her for alpha gal there is a slight increase in her titer and if she feels that much of her symptoms are due to the alpha gal issue. She did see her primary care doctor if this morning she was given Zofran she states that despite that she is continue to vomit. She has not had any hematemesis or coffee-ground emesis. She cannot recall anything specific that may have triggered it. She has had some anemia workup in the past and has been started on iron. Earlier in the fall she had an EGD and colonoscopy which showed some erythema in the duodenal bulb but no other significant pathology. According to her nurse practitioners office notes they had offered her a consult with GI but she had not seen them. On previous CT there is some inflammatory reaction and edematous appearance in the ascending colon to the hepatic flexure. That was on his CT done in May 2024. Just prior to that she had had a colonoscopy and an EGD which were also reviewed on the chart. Associated nausea: Yes Associated symtoms: Reports nausea; Denies chest pain or dysuria Related Data Home Medications Medication Instructions Recorded Confirmed clonidine HCl 0.1 mg tablet 0.1 mg PO DAILY 05/10/24 07/27/24 Previous Rx's Medication Instructions Recorded doxepin 10 mg capsule 10 mg PO .QHS 30 days #30 caps 04/27/24 lisinopril 10 mg tablet 10 mg PO BID 30 days #60 tabs 04/27/24 metoprolol succinate 25 mg 25 mg PO .hs 30 days #30 tabs 04/27/24 tablet,extended release 24 hr pen needle, diabetic 33 gauge x #100 ea 04/27/24 (Advocate Pen Needle) tizanidine 4 mg tablet 4 mg PO Q8H PRN muscle spasticity 04/27/24 #90 tabs pantoprazole 40 mg tablet,delayed 40 mg PO BID 30 days #60 tabs 05/10/24 release sucralfate 100 mg/mL oral 10 ml PO BID 30 days #840 mL 06/05/24 suspension paroxetine HCl 20 mg tablet See Rx Instructions .Route 06/11/24 .COMPLEX #30 tabs amitriptyline 50 mg tablet 50 mg PO .qhs 30 days #30 tabs 07/27/24 ergocalciferol (vitamin D2) 1,250 1,250 mcg PO .weekly #12 caps 07/27/24 mcg (50,000 unit) capsule ferrous sulfate 325 mg (65 mg 325 mg PO BID #60 tabs 07/27/24 iron) tablet folic acid 1 mg tablet 1 mg PO DAILY #90 tabs 07/27/24 ondansetron 8 mg disintegrating 8 mg PO TID #20 tabs 08/16/24 tablet Allergies Allergy/AdvReac Type Severity Reaction Status Date / Time Alpha-Gal Allergy Unknown Verified 08/16/24 15:50 ([id number],3-Gala Review of Systems 2 Const: Denies: fever(s) or chills Card: Denies: chest pain Resp: Denies: dyspnea GI: Reports: abdominal pain, nausea and vomiting : Denies: dysuria, urinary frequency or urinary urgency Musc: Denies: neck pain or back pain Skin/Breast: Denies: rash PFSH ED 2 PFSH: Medical History Anxiety Diagnosed in 2019 and has been on medication as needed managed by her primary care provider. She does not have a therapist. No pertinent past medical history Denies diabetes, asthma, hypertension, seizures, DVT/PE PCP: MORA Henley Surgical History History of foot surgery x 2 -2010--fracture of right ankle with surgery -2010--fracture of left leg with surgery History of tubal ligation Laparoscopic procedure done in 1999 History of dilation and curettage --done for retained placenta after delivery of her demise Family History Father Hypertension Stroke Heart disease Family/Other Hyperlipidemia paternal aunt Breast cancer maternal cousin, diagnosed at age 61 Uterine cancer paternal aunt, diagnosed in her 40s or 50s Heart disease paternal aunt Denies family history of Ovarian cancer Diabetes Thyroid disease Social History Smoking and tobacco/nicotine status: never used tobacco/nicotine Quit status (tobacco/nicotine): has quit using Lives independently: Yes Household members: spouse Housing: House Marital status: Current occupational status: employed Sexually active: Yes Current gender identity: Female Physical Exam 2 Const: GENERAL APPEARANCE: cooperative ORIENTATION/CONSCIOUSNESS: Yes awake, Yes oriented to person, Yes oriented to place and Yes oriented to time HENMT: COMMON NORMALS: normocephalic, atraumatic and hearing grossly normal bilaterally HEAD & SCALP: normocephalic and atraumatic Resp: COMMON NORMALS: normal respiratory effort, No retractions, No use of accessory muscles and clear to auscultation bilaterally AUSCULTATION: clear to auscultation bilaterally Cardio: COMMON NORMALS: regular rate, regular rhythm and No murmurs present (Cardio) RATE: regular rate RHYTHM: regular rhythm GI: COMMON NORMALS: Soft to palpation and No hepatosplenomegaly present A USCULTATION: Yes normoactive bowel sounds PALPATION: Yes Soft to palpation, No Tenderness to palpation present (GI), No Guarding due to palpation present (GI) and Yes No hepatosplenomegaly present Extremity: COMMON NORMALS: normal to inspection, capillary refill normal, no clubbing, cyanosis or edema, no calf tenderness and no pedal edema Neuro: SENSORIUM/ORIENTATION: Yes oriented to person, Yes oriented to place and Yes oriented to time Skin: COMMON NORMALS: no rashes or lesions noted GENERAL SKIN EXAM: no rashes or lesions noted Course 2 Vital Signs: Vital signs: Vital Signs Temperature 98.3 F 08/16/24 15:32 Pulse Rate 150 H 08/16/24 20:03 Respiratory Rate 14 08/16/24 15:32 Blood Pressure 113/86 08/16/24 20:03 Pulse Oximetry 98 08/16/24 20:03 Oxygen Delivery Me thod Room Air 08/16/24 15:32 MDM - Nausea/Vomiting/Diarrhea Medical Decision Making Care signed out to Dr. javier at change of shift. See final notes for diagnosis and disposition. Lab Data 08/16/24 16:19 08/16/24 16:19 Radiology Impressions Abdomen/Pelvis CT 08/16/24 16:56 IMPRESSION: 1. Severe constipation 2. Left adrenal myelolipoma 3. Small umbilical hernia 4. Fatty liver Laboratory Results WBC 9.53 10^3/uL (3.29-11.43) 08/16/24 16:19 RBC 3.64 10^6/uL (3.85-5.65) L 08/16/24 16:19 Hgb 10.50 g/dL (11.27-16.99) L 08/16/24 16:19 Hct 31.9 % (36-47) L 08/16/24 16:19 MCV 87.6 fl (85-98) 08/16/24 16:19 MCH 28.8 pg (27-33) 08/16/24 16:19 MCHC 32.9 g/dL (30-55) 08/16/24 16:19 RDW 19.7 % (12.1-15.1) H 08/16/24 16:19 Plt Count 443 10^3/cmm (157-399) H 08/16/24 16:19 MPV 9.2 fL (7.4-10.4) 08/16/24 16:19 Neut % (Auto) 74.1 % 08/16/24 16:19 Lymph % (Auto) 19.3 % 08/16/24 16:19 [place] % (Auto) 6.0 % 08/16/24 16:19 Eos % (Auto) 0.0 % 08/16/24 16:19 Baso % (Auto) 0.3 % 08/16/24 16:19 Neut # (Auto) 7.06 10^3/uL (1.8-7.7) 08/16/24 16:19 Lymph # (Auto) 1.8 10^3/uL (0.8-4.8) 08/16/24 16:19 [place] # (Auto) 0.6 10^3/uL (0.2-0.9) 08/16/24 16:19 Eos # (Auto) 0.0 10^3/uL (0.0-0.8) 08/16/24 16:19 Baso # (Auto) 0.0 10^3/uL (0.0-0.1) 08/16/24 16:19 Nucleated RBC % (auto) 0 % 08/16/24 16:19 Nucleated RBCs # 0.0 /100WBC 08/16/24 16:19 Sodium 140 mmol/L (136-145) 08/16/24 16:19 Potassium 2.9 mmol/L (3.5-5.1) L 08/16/24 16:19 Chloride 105 mmol/L (98-107) 08/16/24 16:19 Carbon Dioxide 23 mmol/L (22-29) 08/16/24 16:19 Anion Gap 14.9 (5-19) 08/16/24 16:19 BUN 6 mg/dL (6-20) 08/16/24 16:19 Creatinine 0.6 mg/dL (0.5-0.9) 08/16/24 16:19 GFR Calculation 103.8 mL/min (90-130) 08/16/24 16:19 Glucose 111 mg/dL (65-115) 08/16/24 16:19 Calculated Osmolality 288 mOsm/kg (285-295) 08/16/24 16:19 Lactic Acid 2.2 mmol/L (0.5-2.2) 08/16/24 16:19 Calcium 9.1 mg/dL (8.5-10.5) 08/16/24 16:19 Total Bilirubin 0.4 mg/dL (0.15-1.2) 08/16/24 16:19 AST 42 U/L (0-32) H 08/16/24 16:19 ALT 32 U/L (0-33) 08/16/24 16:19 Alkaline Phosphatase 203 U/L (35-105) H 08/16/24 16:19 Troponin T Baseline < 6 ng/L (0-10) 08/16/24 16:19 Troponin T 120 Minute 6.00 ng/L (0-10) 08/16/24 18:22 Delta Troponin T 0.65137 ABS# (0-10) 08/16/24 18:22 C-Reactive Protein 3.0 mg/L (0.0-4.9) 08/16/24 16:19 Total Protein 6.6 g/dL (6.6-8.7) 08/16/24 16:19 Albumin 3.2 g/dL (3.5-5.2) L 08/16/24 16:19 Globulin 3.4 g/dL (1.3-4.6) 08/16/24 16:19 Urine Color Yellow (Yellow) 08/16/24 17:32 Urine Appearance Clear (CLEAR) 08/16/24 17:32 Urine pH 6.5 (5-7) 08/16/24 17:[address] [place] 1.015 (1.005-1.030) 08/16/24 17:32 Urine Protein Trace (Negative) A 08/16/24 17:32 Urine Glucose (UA) Negative (Normal) 08/16/24 17:32 Urine Ketones Negative (Negative) 08/16/24 17:32 Urine Blood Negative (Negative) 08/16/24 17:32 Urine Nitrate Negative (Negative) 08/16/24 17: Urine Bilirubin Negative (Negative) 08/16/24 17: Urine Urobilinogen 1.0 mg/dL (Negative) 08/16/24 17:32 Ur Leukocyte Esterase 3+ (Negative) A 08/16/24 17:32 Urine RBC 0-2 /hpf (0-2) 08/16/24 17:32 Urine WBC 21-50 /hpf (0-5) H 08/16/24 17:32 Ur Squamous Epith Cells 6-10 /hpf (0-5) 08/16/24 17:32 Urine Bacteria 2+ /hpf (NONE) H 08/16/24 17:32 Hyaline Casts 0.81 /lpf 08/16/24 17:32 Urine Opiates Screen Negative ng/mL (Negative) 08/16/24 17:32 Ur Barbiturates Screen Negative ng/mL (Negative) 08/16/24 17:32 Ur Phencyclidine Scrn Negative ng/mL (Negative) 08/16/24 17:32 Ur Amphetamines Screen Negative ng/mL (Negative) 08/16/24 17:32 U Benzodiazepines Scrn Negative ng/mL (Negative) 08/16/24 17:32 Urine Cocaine Screen Negative ng/mL (Negative) 08/16/24 17:32 U Marijuana (THC) Screen Negative ng/mL (Negative) 08/16/24 17:32 Coronavirus (PCR) Negative (Negative) 08/16/24 18:40 Influenza A (PCR) Negative (Negative) 08/16/24 18:40 Influenza Type B (PCR) Negative (Negative) 08/16/24 18:40 RSV (PCR) Negative (Negative) 08/16/24 18:40 Discharge Plan Discharge Patient Disposition: Home Clinical Impression: Tachycardia, unspecified, Fatty liver Constipation Qualifiers: Constipation type: unspecified constipation type Qualified Code(s): K59.00 - Constipation, unspecified HTN (hypertension) Qualifiers: Hypertension type: primary hypertension Qualified Code(s): I10 - Essential (primary) hypertension Nausea & vomiting Qualifiers: Vomiting type: unspecified Qualified Code(s): R11.2 - Nausea with vomiting, unspecified Condition: Stable Prescriptions: No Action amitriptyline 50 mg tablet 50 mg PO .qhs 30 Days Qty: 30 5RF ergocalciferol (vitamin D2) 1,250 mcg (50,000 unit) capsule 1,250 mcg PO .weekly Qty: 12 1RF folic acid 1 mg tablet 1 mg PO DAILY Qty: 90 1RF ferrous sulfate 325 mg (65 mg iron) tablet 325 mg PO BID Qty: 60 0RF doxepin 10 mg capsule 10 mg PO .QHS 30 Days Qty: 30 5RF lisinopril 10 mg tablet 10 mg PO BID 30 Days Qty: 60 5RF metoprolol succinate 25 mg tablet extended release 24 hr 25 mg PO .hs 30 Days Qty: 30 5RF tizanidine 4 mg tablet 4 mg PO Q8H PRN (Reason: muscle spasticity) Qty: 90 5RF (DME) pen needle, diabetic [Advocate Pen Needle] 33 gauge x 5/32 needle See Rx Instructions .Route Qty: 100 1RF Rx Instructions: As directed pantoprazole 40 mg tablet,delayed release (DR/EC) 40 mg PO BID 30 Days Qty: 60 1RF sucralfate 100 mg/mL suspension 10 ml PO BID 30 Days Qty: 840 0RF paroxetine HCl 20 mg tablet See Rx Instructions .ROUTE .COMPLEX Qty: 30 3RF Dose Instruction: TAKE ONE TABLET BY MOUTH DAILY Rx Instructions: TAKE ONE TABLET BY MOUTH DAILY ondansetron 8 mg tablet,disintegrating 8 mg PO TID Qty: 20 0RF clonidine HCl 0.1 mg tablet 0.1 mg PO DAILY Rx Instructions: TAKE ONE TABLET BY MOUTH At Bedtime Discharge Orders: Discharge ED (Routine); Ordered 08/16/24 Ordered By: Emanuel Law Referrals: Narda Gill FNP [Primary Care Provider] - Discharge Diet: Advance as tolerated Discharge Activity: Resume usual activity Patient Instructions: Opioid Safety, Pain Management Activity Restrictions/Additional Instructions: Please start taking 1 capful of MiraLAX every night. You can start taking up to 3 Dulcolax in order to help manage your constipation. Please follow-up with your primary care provider to review incidental findings on your CT scan. You did also show some slight changes in your liver enzymes that are not overly concerning or acute at this time and likely represent vomiting but need to be evaluated with repeat labs by your primary care doctor. Coding Level of Care Code ED Immigration Guard for [place] Fwd Documented by User: Emanuel Javier DO 08/16/24 19:34 HPI - Nausea/Vomiting/Diarrhea 2 General: Chief complaint: Nausea/Vomiting/Diarrhea Stated complaint: vomitting Time Seen by Provider: 08/16/24 16:23 Related Data Home Medications Medication Instructions Recorded Confirmed clonidine HCl 0.1 mg tablet 0.1 mg PO DAILY 05/10/24 07/27/24 Previous Rx's Medication Instructions Recorded doxepin 10 mg capsule 10 mg PO .QHS 30 days #30 caps 04/27/24 lisinopril 10 mg tablet 10 mg PO BID 30 days #60 tabs 04/27/24 metoprolol succinate 25 mg 25 mg PO .hs 30 days #30 tabs 04/27/24 tablet,extended release 24 hr pen needle, diabetic 33 gauge x #100 ea 04/27/24 5/32 (Advocate Pen Needle) tizanidine 4 mg tablet 4 mg PO Q8H PRN muscle spasticity 04/27/24 #90 tabs pantoprazole 40 mg tablet,delayed 40 mg PO BID 30 days #60 tabs 05/10/24 release sucralfate 100 mg/mL oral 10 ml PO BID 30 days #840 mL 06/05/24 suspension paroxetine HCl 20 mg tablet See Rx Instructions .Route 06/11/24 .COMPLEX #30 tabs amitriptyline 50 mg tablet 50 mg PO .qhs 30 days #30 tabs 07/27/24 ergocalciferol (vitamin D2) 1,250 1,250 mcg PO .weekly #12 caps 07/27/24 mcg (50,000 unit) capsule ferrous sulfate 325 mg (65 mg 325 mg PO BID #60 tabs 07/27/24 iron) tablet folic acid 1 mg tablet 1 mg PO DAILY #90 tabs 07/27/24 ondansetron 8 mg disintegrating 8 mg PO TID #20 tabs 08/16/24 tablet Allergies Allergy/AdvReac Type Severity Reaction Status Date / Time Alpha-Gal Allergy Unknown Verified 08/16/24 15:50 (Ypzotabgy-Xjbxj-7,3-Gala PFSH ED 2 PFSH: Medical History Anxiety Diagnosed in 2019 and has been on medication as needed managed by her primary care provider. She does not have a therapist. No pertinent past medical history Denies diabetes, asthma, hypertension, seizures, DVT/PE PCP: [facility] Surgical History History of foot surgery x 2 -2010--fracture of right ankle with surgery -2010--fracture of left leg with surgery History of tubal ligation Laparoscopic procedure done in 1999 History of dilation and curettage --done for retained placenta after delivery of her demise Family History Father Hypertension Stroke Heart disease Family/Other Hyperlipidemia paternal aunt Breast cancer maternal cousin, diagnosed at age 61 Uterine cancer paternal aunt, diagnosed in her 40s or 50s Heart disease paternal aunt Denies family history of Ovarian cancer Diabetes Thyroid disease Social History Smoking and tobacco/nicotine status: never used tobacco/nicotine Quit status (tobacco/nicotine): has quit using Lives independently: Yes Household members: spouse Housing: House Marital status: Current occupational status: employed Sexually active: Yes Current gender identity: Female Course 2 Vital Signs: Vital signs: Vital Signs Temperature 98.3 F 08/16/24 15:32 Pulse Rate 150 H 08/16/24 20:03 Respiratory Rate 14 08/16/24 15:32 Blood Pressure 113/86 08/16/24 20:03 Pulse Oximetry 98 08/16/24 20:03 Oxygen Delivery Me thod Room Air 08/16/24 15:32 MDM - Nausea/Vomiting/Diarrhea Medical Decision Making Care signed out to Dr. javier at change of shift. See final notes for diagnosis and disposition. Care assumed from Dr. Smith. Patient has persistent tachycardia. Recommended that she follow-up with her primary care physician for high blood pressure and tachycardia. Patient's hypokalemia was addressed with oral potassium. Her CT scan demonstrated fatty liver, constipation, and a myolipoma. Encouraged patient to follow-up with her primary care physician for the incidental findings. Gave her recommendations on constipation. Likely her abdominal pain and vomiting is secondary to her profound constipation. Return precautions were discussed and the patient was discharged home in good condition. Lab Data 08/16/24 16:19 08/16/24 16:19 Radiology Impressions Abdomen/Pelvis CT 08/16/24 16:56 IMPRESSION: 1. Severe constipation 2. Left adrenal myelolipoma 3. Small umbilical hernia 4. Fatty liver Laboratory Results WBC 9.53 10^3/uL (3.29-11.43) 08/16/24 16:19 RBC 3.64 10^6/uL (3.85-5.65) L 08/16/24 16:19 Hgb 10.50 g/dL (11.27-16.99) L 08/16/24 16:19 Hct 31.9 % (36-47) L 08/16/24 16:19 MCV 87.6 fl (85-98) 08/16/24 16:19 MCH 28.8 pg (27-33) 08/16/24 16:19 MCHC 32.9 g/dL (30-55) 08/16/24 16:19 RDW 19.7 % (12.1-15.1) H 08/16/24 16:19 Plt Count 443 10^3/cmm (157-399) H 08/16/24 16:19 MPV 9.2 fL (7.4-10.4) 08/16/24 16:19 Neut % (Auto) 74.1 % 08/16/24 16:19 Lymph % (Auto) 19.3 % 08/16/24 16:19 [place] % (Auto) 6.0 % 08/16/24 16:19 Eos % (Auto) 0.0 % 08/16/24 16:19 Baso % (Auto) 0.3 % 08/16/24 16:19 Neut # (Auto) 7.06 10^3/uL (1.8-7.7) 08/16/24 16:19 Lymph # (Auto) 1.8 10^3/uL (0.8-4.8) 08/16/24 16:19 [place] # (Auto) 0.6 10^3/uL (0.2-0.9) 08/16/24 16:19 Eos # (Auto) 0.0 10^3/uL (0.0-0.8) 08/16/24 16:19 Baso # (Auto) 0.0 10^3/uL (0.0-0.1) 08/16/24 16:19 Nucleated RBC % (auto) 0 % 08/16/24 16:19 Nucleated RBCs # 0.0 /100WBC 08/16/24 16:19 Sodium 140 mmol/L (136-145) 08/16/24 16:19 Potassium 2.9 mmol/L (3.5-5.1) L 08/16/24 16:19 Chloride 105 mmol/L (98-107) 08/16/24 16:19 Carbon Dioxide 23 mmol/L (22-29) 08/16/24 16:19 Anion Gap 14.9 (5-19) 08/16/24 16:19 BUN 6 mg/dL (6-20) 08/16/24 16:19 Creatinine 0.6 mg/dL (0.5-0.9) 08/16/24 16:19 GFR Calculation 103.8 mL/min (90-130) 08/16/24 16:19 Glucose 111 mg/dL (65-115) 08/16/24 16:19 Calculated Osmolality 288 mOsm/kg (285-295) 08/16/24 16:19 Lactic Acid 2.2 mmol/L (0.5-2.2) 08/16/24 16:19 Calcium 9.1 mg/dL (8.5-10.5) 08/16/24 16:19 Total Bilirubin 0.4 mg/dL (0.15-1.2) 08/16/24 16:19 AST 42 U/L (0-32) H 08/16/24 16:19 ALT 32 U/L (0-33) 08/16/24 16:19 Alkaline Phosphatase 203 U/L (35-105) H 08/16/24 16:19 Troponin T Baseline < 6 ng/L (0-10) 08/16/24 16:19 Troponin T 120 Minute 6.00 ng/L (0-10) 08/16/24 18:22 Delta Troponin T 0.37734 ABS# (0-10) 08/16/24 18:22 C-Reactive Protein 3.0 mg/L (0.0-4.9) 08/16/24 16:19 Total Protein 6.6 g/dL (6.6-8.7) 08/16/24 16:19 Albumin 3.2 g/dL (3.5-5.2) L 08/16/24 16:19 Globulin 3.4 g/dL (1.3-4.6) 08/16/24 16:19 Urine Color Yellow (Yellow) 08/16/24 17:32 Urine Appearance Clear (CLEAR) 08/16/24 17:32 Urine pH 6.5 (5-7) 08/16/24 17:[address] [place] 1.015 (1.005-1.030) 08/16/24 17:32 Urine Protein Trace (Negative) A 08/16/24 17:32 Urine Glucose (UA) Negative (Normal) 08/16/24 17:32 Urine Ketones Negative (Negative) 08/16/24 17:32 Urine Blood Negative (Negative) 08/16/24 17:32 Urine Nitrate Negative (Negative) 08/16/24 17:32 Urine Bilirubin Negative (Negative) 08/16/24 17:32 Urine Urobilinogen 1.0 mg/dL (Negative) 08/16/24 17:32 Ur Leukocyte Esterase 3+ (Negative) A 08/16/24 17:32 Urine RBC 0-2 /hpf (0-2) 08/16/24 17:32 Urine WBC 21-50 /hpf (0-5) H 08/16/24 17:32 Ur Squamous Epith Cells 6-10 /hpf (0-5) 08/16/24 17:32 Urine Bacteria 2+ /hpf (NONE) H 08/16/24 17:32 Hyaline Casts 0.81 /lpf 08/16/24 17:32 Urine Opiates Screen Negative ng/mL (Negative) 08/16/24 17:32 Ur Barbiturates Screen Negative ng/mL (Negative) 08/16/24 17:32 Ur Phencyclidine Scrn Negative ng/mL (Negative) 08/16/24 17:32 Ur Amphetamines Screen Negative ng/mL (Negative) 08/16/24 17:32 U Benzodiazepines Scrn Negative ng/mL (Negative) 08/16/24 17:32 Urine Cocaine Screen Negative ng/mL (Negative) 08/16/24 17:32 U Marijuana (THC) Screen Negative ng/mL (Negative) 08/16/24 17:32 Coronavirus (PCR) Negative (Negative) 08/16/24 18:40 Influenza A (PCR) Negative (Negative) 08/16/24 18:40 Influenza Type B (PCR) Negative (Negative) 08/16/24 18:40 RSV (PCR) Negative (Negative) 08/16/24 18:40 All radiology interpretation(s) finalized by discharge Discharge Plan Discharge Patient Disposition: Home Clinical Impression: Tachycardia, unspecified, Fatty liver Constipation Qualifiers: Constipation type: unspecified constipation type Qualified Code(s): K59.00 - Constipation, unspecified HTN (hypertension) Qualifiers: Hypertension type: primary hypertension Qualified Code(s): I10 - Essential (primary) hypertension Nausea & vomiting Qualifiers: Vomiting type: unspecified Qualified Code(s): R11.2 - Nausea with vomiting, unspecified Condition: Stable Prescriptions: No Action amitriptyline 50 mg tablet 50 mg PO .qhs 30 Days Qty: 30 5RF ergocalciferol (vitamin D2) 1,250 mcg (50,000 unit) capsule 1,250 mcg PO .weekly Qty: 12 1RF folic acid 1 mg tablet 1 mg PO DAILY Qty: 90 1RF ferrous sulfate 325 mg (65 mg iron) tablet 325 mg PO BID Qty: 60 0RF doxepin 10 mg capsule 10 mg PO .QHS 30 Days Qty: 30 5RF lisinopril 10 mg tablet 10 mg PO BID 30 Days Qty: 60 5RF metoprolol succinate 25 mg tablet extended release 24 hr 25 mg PO .hs 30 Days Qty: 30 5RF tizanidine 4 mg tablet 4 mg PO Q8H PRN (Reason: muscle spasticity) Qty: 90 5RF (DME) pen needle, diabetic [Advocate Pen Needle] 33 gauge x 5/32 needle See Rx Instructions .Route Qty: 100 1RF Rx Instructions: As directed pantoprazole 40 mg tablet,delayed release (DR/EC) 40 mg PO BID 30 Days Qty: 60 1RF sucralfate 100 mg/mL suspension 10 ml PO BID 30 Days Qty: 840 0RF paroxetine HCl 20 mg tablet See Rx Instructions .ROUTE .COMPLEX Qty: 30 3RF Dose Instruction: TAKE ONE TABLET BY MOUTH DAILY Rx Instructions: TAKE ONE TABLET BY MOUTH DAILY ondansetron 8 mg tablet,disintegrating 8 mg PO TID Qty: 20 0RF clonidine HCl 0.1 mg tablet 0.1 mg PO DAILY Rx Instructions: TAKE ONE TABLET BY MOUTH At Bedtime Discharge Orders: Discharge ED (Routine); Ordered 08/16/24 Ordered By: Emanuel Javier Referrals: Narda Gill FNP [Primary Care Provider] - Discharge Diet: Advance as tolerated Discharge Activity: Resume usual activity Patient Instructions: Opioid Safety, Pain Management Activity Restrictions/Additional Instructions: Please start taking 1 capful of MiraLAX every night. You can start taking up to 3 Dulcolax in order to help manage your constipation. Please follow-up with your primary care provider to review incidental findings on your CT scan. You did also show some slight changes in your liver enzymes that are not overly concerning or acute at this time and likely represent vomiting but need to be evaluated with repeat labs by your primary care doctor. Coding Level of Care Code ED Immigration Guard for [place] Yao
--- NOTE | 2024-08-16 16:56 | CTR_ITS ---
PROCEDURE INFORMATION: Exam: CT Abdomen And Pelvis With Contrast Exam date and time: 08/16/2024 5:53 PM Age: 53 years old Clinical indication: Abdominal pain; Additional info: Abd pain TECHNIQUE: Imaging protocol: Computed tomography of the abdomen and pelvis with contrast. Radiation optimization: All CT scans at this facility use at least one of these dose optimization techniques: automated exposure control; mA and/or kV adjustment per patient size (includes targeted exams where dose is matched to clinical indication); or iterative reconstruction. Contrast material: OMNI 350; Contrast volume: 100 ml; Contrast route: INTRAVENOUS (IV); COMPARISON: CT abdomen pelvis w con* [id number] 05/28/2024 9:27 AM RADIATION DOSE METRICS: Total DLP (mGy-cm): 578.93 FINDINGS: Lungs: Lung bases are clear. No pleural effusion. Liver: The liver demonstrates diffuse fatty infiltration. No evidence of liver mass. Gallbladder and biliary ducts: Normal. No calcified stones. No ductal dilation. Pancreas: Normal. No ductal dilation. Spleen: Normal. No splenomegaly. Adrenal glands: There is a 2.8 cm rounded low-density nodule involving the left adrenal gland that contains multiple calcifications. Kidneys and ureters: Normal. No hydronephrosis. Stomach and bowel: There is a large amount of stool noted throughout most of the colon. The stool causes mild distension of the transverse colon. No small bowel distension noted. Appendix: The appendix is clearly identified and is unremarkable. Intraperitoneal space: Unremarkable. No free air. No significant fluid collection. Vasculature: Unremarkable. No abdominal aortic aneurysm. Lymph nodes: Unremarkable. No enlarged lymph nodes. Urinary bladder: Unremarkable as visualized. Reproductive: Unremarkable as visualized. Bones/joints: Unremarkable. No acute fracture. Soft tissues: There is a small umbilical hernia containing mesenteric fat. CT/CT abdomen pelvis w con* [id number] IMPRESSION: 1. Severe constipation 2. Left adrenal myelolipoma 3. Small umbilical hernia 4. Fatty liver
[2024-08-16 16:57] LABS: Troponin(5th) Baseline < 6 ng/L (0-10)
[2024-08-16 17:00] LABS: Lactic Sepsis W/Reflex 2.2 mmol/L (0.5-2.2)
[2024-08-16 17:09] LABS: Alanine Aminotransferase 32 U/L (0-33); Albumin Level 3.2 g/dL (3.5-5.2); Alkaline Phosphatase 203 U/L (35-105); Anion Gap 14.9 (5-19); Aspartate Amino Transferase 42 U/L (0-32); Blood Urea Nitrogen 6 mg/dL (6-20); Calcium 9.1 mg/dL (8.5-10.5); Carbon Dioxide 23 mmol/L (22-29); Chloride 105 mmol/L (98-107); Creatinine Clr Calc Pharmacy 103.6252; Globulin 3.4 g/dL (1.3-4.6); Glomerular Filtration Rate 103.8 mL/min (90-130); Glucose 111 mg/dL (65-115); Osmolality Calculated 288 mOsm/kg (285-295); Sodium 140 mmol/L (136-145); Total Bilirubin 0.4 mg/dL (0.15-1.2); Total Protein 6.6 g/dL (6.6-8.7)
[2024-08-16 17:15] LABS: Potassium 2.9 mmol/L (3.5-5.1)
[2024-08-16] MEDS: iohexol 350 mg/mL 500 mL Btl (per mL) IV (17:55)
--- NOTE | 2024-08-16 18:02 | ECG_ITS ---
[facility] Date: 2024-08-16 Pat Name: Graciela Woodson Department: Room: Gender: Female Audio Visual Director: : 1970 Requested By: Rehana Padilla Order Number: [id number] Jaison MD: Gee Santillan M.D. Measurements Intervals [place] Rate: 115 P: 26 AL: 102 QRS: 39 QRSD: 73 T: 64 QT: 362 QTc: 502 Interpretive Statements SINUS TACHYCARDIA WITH SHORT AL INTERVAL LOW QRS VOLTAGE IN PRECORDIAL LEADS [QRS DEFLECTION < 1.0 mV IN CHEST LEADS] MODERATE ST DEPRESSION [0.05+ mV ST DEPRESSION] Compared to ECG 08/16/2024 15:41:03 Short AL interval now present Low QRS voltage now present ST (T wave) deviation now present Myocardial infarct finding no longer present T-wave abnormality no longer present Possible ischemia no longer present Electronically Signed On 08-17-2024 21:57:25 TANDEM OPERATOR by Gee Santillan M.D. [id number]
[2024-08-16 18:04] LABS: Bilirubin Urine Negative (Negative); Blood Urine Negative (Negative); Glucose Urine UA Negative (Normal); Ketones Urine Negative (Negative); Leukocyte Esterase Urine 3+ (Negative); Nitrate Urine Negative (Negative); Protein Urine Trace (Negative); Specific Gravity, Urine 1.015 (1.005-1.030); Urine Appearance Clear (CLEAR); Urine Color Yellow (Yellow); pH Urine 6.5 (5-7)
[2024-08-16 18:09] LABS: Bacteria Urine 2+ /hpf; Hyaline Casts Urine 0.81 /lpf; RBC Urine 0-2 /hpf (0-2); WBC Urine 21-50 /hpf (0-5)
[2024-08-16 18:10] LABS: Amphetamines Screen Urine Negative (Negative); Barbiturates Screen Urine Negative (Negative); Benzodiazepines Screen Urine Negative (Negative); Cocaine Screen Urine Negative (Negative); Opiate Screen Urine Negative (Negative); PCP Screen Urine Negative (Negative); THC Screen Urine Negative (Negative)
[2024-08-16 18:18] LABS: Add Urine Culture? Yes
[2024-08-16] MEDS: prochlorperazine 10 mg/2 mL Inj IVP (18:18)
[2024-08-16 18:19] VITALS: BP 159/110; PULSE 132; O2SAT 98
[2024-08-16 18:19] LABS: Reflex Lactate Order REFLEX LACTIC ORDERD
[2024-08-16] MEDS: potassium chloride oral liq 20 mEq/15 mL UDC 40 MEQ PO (18:20)
[2024-08-16 18:42] VITALS: BP 155/111; PULSE 130; O2SAT 98
[2024-08-16 19:03] VITALS: BP 170/102; PULSE 123; O2SAT 100
[2024-08-16 19:25] LABS: Troponin 5 2HR Delta 0.00001 ABS# (0-10)
[2024-08-16 19:32] LABS: Covid PCR NEGATIVE (Negative); Influenza A NEGATIVE (Negative); Influenza B NEGATIVE (Negative); Respiratory Syncytial Virus Ce NEGATIVE (Negative)
[2024-08-16 20:03] VITALS: BP 113/86; PULSE 150; O2SAT 98
== END 2024-08-16 20:05 | disposition home or self-care (01) ==
PROVIDERS: Emergency Medicine; Emergency Provider General Practice; PCP Nurse Practitioner Family
DX: R00.0 Tachycardia, unspecified (principal); K76.0 Fatty (change of) liver, not elsewhere classified; K59.00 Constipation, unspecified; I10 Essential (primary) hypertension; R11.2 Nausea with vomiting, unspecified; Z11.52 Encounter for screening for COVID-19
CPT/HCPCS: 36415; 74177; 80053; 80306; 81001; 83605; 84484; 85025; 86140; 87040; 87086; 87637; 93005; 93010; 96374; 99285; J0780

== ENCOUNTER → 2024-08-23 10:44 | Outpatient (BNVA) | payer BC, SELFPAY | PROVIDERS: PCP Nurse Practitioner Family; Visit Provider Nurse Practitioner Family | DX: D64.9 Anemia, unspecified (principal) | CPT/HCPCS: 80053; 82728; 83550; 85025 ==

== ENCOUNTER 2024-09-03 10:48 | Inpatient (IN) | payer BC, SELFPAY ==
[2024-09-03] VITALS (14 sets, daily range): BP systolic 90–127; BP diastolic 55–95; PULSE 119–151; RESP 15–22; TEMP 36.4–36.9; O2SAT 97–100
--- NOTE | 2024-09-03 10:51 | XRR_ITS ---
PROCEDURE INFORMATION: Exam: XR Chest Exam date and time: 09/03/2024 11:02 AM Age: 53 years old Clinical indication: Cough and dyspnea; Patient HX: Weakness and n/v for the last few days. ; Additional info: Dyspnea/cough TECHNIQUE: Imaging protocol: Radiologic exam of the chest. Views: 1 view. COMPARISON: CT abdomen pelvis w con* [id number] 08/16/2024 5:53 PM FINDINGS: Tubes, catheters and devices: None. Lungs: Evidence for calcified lung granuloma in the right chest. Lung volumes are decreased. Left-sided pulmonary linear interstitial opacities identified within lower lung. The lungs appear otherwise clear. Pleural spaces: Small volume of pleural fluid is demonstrated within the left side. No other pleural effusion or pneumothorax identified. Heart/Mediastinum: Mediastinum and winnie appear unremarkable. Bones/joints: No acute bony abnormality identified. XR/XR chest 1V portable [id number] IMPRESSION: 1. Pulmonary atelectasis or acute infiltrates within left lower chest. 2. Small left pleural effusion.
--- NOTE | 2024-09-03 10:54 | ECG_ITS ---
[facility] Test Date: 2024-09-03 Pat Name: Graciela Woodson Department: Room: Gender: Female Sales Assistants And Salespersons: : 1970 Requested By: Hector Padilla Order Number: [id number] Reading MD: NURY COBIAN Measurements Intervals [place] Rate: 126 P: 60 CA: 155 QRS: 49 QRSD: 77 T: -22 QT: 301 QTc: 437 Interpretive Statements SINUS TACHYCARDIA LOW QRS VOLTAGE IN PRECORDIAL LEADS [QRS DEFLECTION < 1.0 mV IN CHEST LEADS] POSSIBLE ANTERIOR MYOCARDIAL INFARCTION , OF INDETERMINATE AGE [30 ms Q WAVE IN V3/V4, OR R < 0.2 mV IN V4] MODERATE T-WAVE ABNORMALITY, CONSIDER INFERIOR ISCHEMIA [-0.1+ mV T-WAVE IN II/aVF] Compared to ECG 08/16/2024 18:02:31 Myocardial infarct finding now present T-wave abnormality now present Possible ischemia now present Short CA interval no longer present ST (T wave) deviation no longer present Electronically Signed On 09-03-2024 23:11:56 SHOWER SCREEN INSTALLER by NURY COBIAN [id number]
--- NOTE | 2024-09-03 11:14 | ED_ITS ---
HPI - Weakness 2 General: Chief complaint: Weakness Stated complaint: Weakness, N/V Time Seen by Provider: 09/03/24 10:50 History of Present Illness: 53-year-old female presents emergency ro om had episodes of nausea and vomiting over the last couple of weeks. She went to the doctor's office today they had difficulty obtaining a blood pressure reported her heart rate was 60s she presented to the emergency room 1 run arrival here she is sinus tach in the low 20s to 130s. She continues to have nausea and vomiting although she did not throw up while here. She states she has a history of alpha gal. She denies any chest pain. No productive cough, no vomiting no diarrhea Associated symptoms: Reports nausea and vomiting; Denies chest pain, chills, dysuria or fever(s) Review of Systems 2 Const: Reports: fatigue; Denies: fever(s) or chills Card: Denies: chest pain Resp: Denies: dyspnea GI: Reports: nausea and vomiting; Denies: abdominal pain : Denies: dysuria, urinary frequency or urinary urgency Musc: Denies: neck pain or back pain Skin/Breast: Denies: rash Neuro: Reports: dizziness [facility] ED 2 PFSH: Medical History Anxiety Diagnosed in 2019 and has been on medication as needed managed by her primary care provider. She does not have a therapist. No pertinent past medical history Denies diabetes, asthma, hypertension, seizures, DVT/PE PCP: MORA Henley Surgical History History of foot surgery x 2 -2010--fracture of right ankle with surgery -2010--fracture of left leg with surgery History of tubal ligation Laparoscopic procedure done in 1999 History of dilation and curettage --done for retained placenta after delivery of her demise Family History Father Hypertension Stroke Heart disease Family/Other Hyperlipidemia paternal aunt Breast cancer maternal cousin, diagnosed at age 61 Uterine cancer paternal aunt, diagnosed in her 40s or 50s Heart disease paternal aunt Denies family history of Ovarian cancer Diabetes Thyroid disease Social History (Reviewed 09/03/24 @ 16:58 by IRA Mayes Smoking and tobacco/nicotine status: never used tobacco/nicotine Quit status (tobacco/nicotine): has quit using Lives independently: Yes Household members: spouse Housing: House Marital status: Current occupational status: employed Sexually active: Yes Current gender identity: Female Physical Exam 2 Const: GENERAL APPEARANCE: cooperative ORIENTATION/CONSCIOUSNESS: Yes awake, Yes oriented to person, Yes oriented to place and Yes oriented to time HENMT: COMMON NORMALS: normocephalic, atraumatic and hearing grossly normal bilaterally HEAD & SCALP: normocephalic and atraumatic Resp: COMMON NORMALS: normal respiratory effort, No retractions, No use of accessory muscles and clear to auscultation bilaterally AUSCULTATION: clear to auscultation bilaterally Cardio: COMMON NORMALS: regular rate, regular rhythm and No murmurs present (Cardio) RATE: regular rate RHYTHM: regular rhythm GI: COMMON NORMALS: Soft to palpation and No hepatosplenomegaly present A USCULTATION: Yes normoactive bowel sounds PALPATION: Yes Soft to palpation, No Tenderness to palpation present (GI), No Guarding due to palpation present (GI) and Yes No hepatosplenomegaly present Extremity: COMMON NORMALS: normal to inspection, capillary refill normal, no clubbing, cyanosis or edema, no calf tenderness and no pedal edema Neuro: SENSORIUM/ORIENTATION: Yes oriented to person, Yes oriented to place and Yes oriented to time Skin: COMMON NORMALS: no rashes or lesions noted GENERAL SKIN EXAM: no rashes or lesions noted Course 2 Vital Signs: Vital signs: Vital Signs Temperature 97.5 F L 09/03/24 10:49 Pulse Rate 131 H 09/03/24 16:45 Respiratory Rate 22 H 09/03/24 15:00 Blood Pressure 119/87 09/03/24 16:45 Pulse Oximetry 99 09/03/24 16:45 Oxygen Delivery Me thod Room Air 09/03/24 10:49 MDM - Weakness Medical Decision Making Patient remains tachycardic she had began to improve but then worsened again got up to 150 we gave her 20 of Cardizem which did improve her read a continuing to be a sinus rhythm her lactic acid was increased and second 1 actually was elevated. She has increase in her pain transaminases however that has been present previously previous hepatitis panel was negative is relatively recent. White count is normal hemoglobin shows anemia but has been chronically that way. The remainder of her chemistry panel showed mild hyponatremia at 131 potassium of 5.2. Her T. bili was normal transaminases and alk phos slightly elevated. Urine showed no sign of infection. Gallbladder ultrasound unremarkable CT of the abdomen did not show any significant pathology. After admission Dr. Morfin ordered a CTA which is pending at this time. We have ordered a sepsis bolus which she is already seeing most of that in the initial boluses we have given her. Patient will be admitted to ICU started on prophylactic Zosyn. Medical Records I reviewed the patient's medical records. Lab Data I reviewed the patient's lab results. 09/03/24 11:40 09/03/24 11:40 Radiology Impressions Chest X-Ray 09/03/24 10:51 IMPRESSION: 1. Pulmonary atelectasis or acute infiltrates within left lower chest. 2. Small left pleural effusion. Abdomen/Pelvis CT 09/03/24 12:54 IMPRESSION: 1. No GI tract obstruction. 2. No evidence for colitis. 3. No renal obstruction. 4. Diffuse hepatic steatosis. 5. No ascites. Gallbladder Ultrasound 09/03/24 15:30 IMPRESSION: 1. Technically difficult RIGHT upper quadrant ultrasound. 2. Negative gallbladder. 3. No intrahepatic bile duct dilatation. Laboratory Results WBC 10.30 10^3/uL (3.29-11.43) 09/03/24 11:40 RBC 3.46 10^6/uL (3.85-5.65) L 09/03/24 11:40 Hgb 10.00 g/dL (11.27-16.99) L 09/03/24 11:40 Hct 31.7 % (36-47) L 09/03/24 11:40 MCV 91.6 fl (85-98) 09/03/24 11:40 MCH 28.9 pg (27-33) 09/03/24 11:40 MCHC 31.5 g/dL (30-55) 09/03/24 11:40 RDW 16.2 % (12.1-15.1) H 09/03/24 11:40 Plt Count 394 10^3/cmm (157-399) 09/03/24 11:40 MPV 9.4 fL (7.4-10.4) 09/03/24 11:40 Neut % (Auto) 72.3 % 09/03/24 11:40 Lymph % (Auto) 21.3 % 09/03/24 11:40 Addison % (Auto) 5.7 % 09/03/24 11:40 Eos % (Auto) 0.0 % 09/03/24 11:40 Baso % (Auto) 0.3 % 09/03/24 11:40 Neut # (Auto) 7.45 10^3/uL (1.8-7.7) 09/03/24 11:40 Lymph # (Auto) 2.2 10^3/uL (0.8-4.8) 09/03/24 11:40 Addison # (Auto) 0.6 10^3/uL (0.2-0.9) 09/03/24 11:40 Eos # (Auto) 0.0 10^3/uL (0.0-0.8) 09/03/24 11:40 Baso # (Auto) 0.0 10^3/uL (0.0-0.1) 09/03/24 11:40 Nucleated RBC % (auto) 0 % 09/03/24 11:40 Nucleated RBCs # 0.0 /100WBC 09/03/24 11:40 D-Dimer 0.32 ug/mLFEU (0-0.59) 09/03/24 11:40 Sodium 131 mmol/L (136-145) L 09/03/24 11:40 Potassium 5.2 mmol/L (3.5-5.1) H 09/03/24 11:40 Chloride 98 mmol/L (98-107) 09/03/24 11:40 Carbon Dioxide 22 mmol/L (22-29) 09/03/24 11:40 Anion Gap 16.2 (5-19) 09/03/24 11:40 BUN 11 mg/dL (6-20) 09/03/24 11:40 Creatinine 0.9 mg/dL (0.5-0.9) 09/03/24 11:40 GFR Calculation 65.0 mL/min (90-130) L 09/03/24 11:40 Glucose 97 mg/dL (65-115) 09/03/24 11:40 Calculated Osmolality 271 mOsm/kg (285-295) L 09/03/24 11:40 Lactic Acid 2.5 mmol/L (0.5-2.2) H 09/03/24 11:40 Lactic Acid (Sepsis) 3.5 mmol/L (0.5-2.2) H 09/03/24 15:52 Calcium 8.5 mg/dL (8.5-10.5) 09/03/24 11:40 Magnesium 1.5 mg/dL (1.7-2.3) L 09/03/24 11:40 Total Bilirubin 0.3 mg/dL (0.15-1.2) 09/03/24 11:40 AST 41 U/L (0-32) H 09/03/24 11:40 ALT 35 U/L (0-33) H 09/03/24 11:40 Alkaline Phosphatase 176 U/L (35-105) H 09/03/24 11:40 Troponin T Baseline < 6 ng/L (0-10) 09/03/24 15:52 C-Reactive Protein 3.0 mg/L (0.0-4.9) 09/03/24 11:40 NT-Pro-B Natriuret Pep 140 pg/mL (0-125) H 09/03/24 11:40 Total Protein 5.3 g/dL (6.6-8.7) L 09/03/24 11:40 Albumin 2.6 g/dL (3.5-5.2) L 09/03/24 11:40 Globulin 2.7 g/dL (1.3-4.6) 09/03/24 11:40 Lipase 10 U/L (13-60) L 09/03/24 11:40 Procalcitonin 0.13 ng/mL (0-0.5) 09/03/24 11:40 TSH 2.01 uIU/mL (0.27-4.20) 09/03/24 11:40 Urine Color Yellow (Yellow) 09/03/24 12:02 Urine Appearance Clear (CLEAR) 09/03/24 12:02 Urine pH 6.5 (5-7) 09/03/24 12:02 Ur Specific [place] 1.005 (1.005-1.030) 09/03/24 12:02 Urine Protein Negative (Negative) 09/03/24 12:02 Urine Glucose (UA) Negative (Normal) 09/03/24 12:02 Urine Ketones Negative (Negative) 09/03/24 12:02 Urine Blood Negative (Negative) 09/03/24 12:02 Urine Nitrate Negative (Negative) 09/03/24 12:02 Urine Bilirubin Negative (Negative) 09/03/24 12:02 Urine Urobilinogen 0.2 mg/dL (Negative) 09/03/24 12:02 Ur Leukocyte Esterase Negative (Negative) 09/03/24 12:02 Urine RBC 0-2 /hpf (0-2) 09/03/24 12:02 Urine WBC 0-5 /hpf (0-5) 09/03/24 12:02 Ur Squamous Epith Cells 0-5 /hpf (0-5) 09/03/24 12:02 Amorphous Sediment Not Reportable 09/03/24 12:02 Urine Bacteria None seen /hpf (NONE) 09/03/24 12:02 Hyaline Casts 4.52 /lpf 09/03/24 12:02 Coronavirus (PCR) Negative (Negative) 09/03/24 11:30 Influenza A (PCR) Negative (Negative) 09/03/24 11:30 Influenza Type B (PCR) Negative (Negative) 09/03/24 11:30 RSV (PCR) Negative (Negative) 09/03/24 11:30 All radiology interpretation(s) finalized by discharge Discharge Plan Discharge Patient Disposition: Placed in Observation Admit Provider: Roberto Carlos Kate Clinical Impression: Lactic acidosis, Sinus tachycardia, Elevated transaminase level Coding Level of Care Code ED Custom Car Builder for g Fwd Related Data Home Medications Medication Instructions Recorded Confirmed clonidine HCl 0.1 mg tablet 0.1 mg PO BEDTIME 05/10/24 09/03/24 amitriptyline 50 mg tablet 50 mg PO BEDTIME 09/03/24 09/03/24 doxepin 10 mg capsule 10 mg PO BEDTIME 09/03/24 09/03/24 meclizine 25 mg tablet 25 mg PO TID 09/03/24 09/03/24 metoprolol succinate 25 mg 25 mg PO BEDTIME 09/03/24 09/03/24 tablet,extended release 24 hr ondansetron 8 mg disintegrating 8 mg PO TID PRN Nausea 09/03/24 09/03/24 tablet paroxetine HCl 20 mg tablet 20 mg PO QAM 09/03/24 09/03/24 Previous Rx's Medication Instructions Recorded lisinopril 10 mg tablet 10 mg PO BID 30 days #60 tabs 04/27/24 pen needle, diabetic 33 gauge x #100 ea 04/27/24 (Advocate Pen Needle) tizanidine 4 mg tablet 4 mg PO Q8H PRN muscle spasticity 04/27/24 #90 tabs pantoprazole 40 mg tablet,delayed 40 mg PO BID 30 days #60 tabs 05/10/24 release sucralfate 100 mg/mL oral 10 ml PO BID 30 days #840 mL 06/05/24 suspension ergocalciferol (vitamin D2) 1,250 1,250 mcg PO .weekly #12 caps 07/27/24 mcg (50,000 unit) capsule ferrous sulfate 325 mg (65 mg 325 mg PO BID #60 tabs 07/27/24 iron) tablet folic acid 1 mg tablet 1 mg PO DAILY #90 tabs 07/27/24 Allergies Allergy/AdvReac Type Severity Reaction Status Date / Time Alpha-Gal Allergy Unknown Verified 08/16/24 15:50 ([id number]-9,3-Gala
--- NOTE | 2024-09-03 11:40 | PC.PHAR ---
Pt states no medications taken yet today.
[2024-09-03 12:00] LABS: Basophils % 0.3 %; Hematocrit 31.7 % (36-47); Lymphocytes # 2.2 10^3/uL (0.8-4.8); Lymphocytes % 21.3 %; Mean Corpuscular HGB Conc 31.5 g/dL (30-55); Mean Corpuscular Hemoglobin 28.9 pg (27-33); Mean Corpuscular Volume 91.6 fl (85-98); Mean Platelet Volume 9.4 fL (7.4-10.4); Monocytes # 0.6 10^3/uL (0.2-0.9); Monocytes % 5.7 %; Neutrophils # 7.45 10^3/uL (1.8-7.7); Neutrophils % 72.3 %; Nucleated Red Blood Cells % 0 %; Platelet Count 394 10^3/cmm (157-399); Red Blood Count 3.46 10^6/uL (3.85-5.65); Red Cell Distribution Width 16.2 % (12.1-15.1)
[2024-09-03 12:13] LABS: Covid PCR NEGATIVE (Negative); Influenza A NEGATIVE (Negative); Influenza B NEGATIVE (Negative); Respiratory Syncytial Virus Ce NEGATIVE (Negative)
[2024-09-03] MEDS: sodium chloride 0.9% 500 ML 999 ML IV (12:17)
[2024-09-03 12:20] LABS: Alanine Aminotransferase 35 U/L (0-33); Albumin Level 2.6 g/dL (3.5-5.2); Alkaline Phosphatase 176 U/L (35-105); Anion Gap 16.2 (5-19); Aspartate Amino Transferase 41 U/L (0-32); Blood Urea Nitrogen 11 mg/dL (6-20); Calcium 8.5 mg/dL (8.5-10.5); Carbon Dioxide 22 mmol/L (22-29); Chloride 98 mmol/L (98-107); Globulin 2.7 g/dL (1.3-4.6); Glucose 97 mg/dL (65-115); Osmolality Calculated 271 mOsm/kg (285-295); Potassium 5.2 mmol/L (3.5-5.1); Sodium 131 mmol/L (136-145); Total Bilirubin 0.3 mg/dL (0.15-1.2); Total Protein 5.3 g/dL (6.6-8.7)
[2024-09-03 12:21] LABS: Lactic Sepsis W/Reflex 2.5 mmol/L (0.5-2.2)
[2024-09-03 12:22] LABS: Bilirubin Urine Negative (Negative); Blood Urine Negative (Negative); Glucose Urine UA Negative (Normal); Ketones Urine Negative (Negative); Leukocyte Esterase Urine Negative (Negative); Nitrate Urine Negative (Negative); Protein Urine Negative (Negative); Specific Gravity, Urine 1.005 (1.005-1.030); Urine Appearance Clear (CLEAR); Urine Color Yellow (Yellow); Urobilinogen Urine 0.2 mg/dL (Negative); pH Urine 6.5 (5-7)
[2024-09-03 12:24] LABS: Add Urine Microscopic? YES; Bacteria Urine None Seen /hpf; Hyaline Casts Urine 4.52 /lpf; RBC Urine 0-2 /hpf (0-2); Squamous Epithelial Cell Urine 0-5 /hpf (0-5); WBC Urine 0-5 /hpf (0-5)
--- NOTE | 2024-09-03 12:54 | CT_ITS ---
WS: [id number] CT ABDOMEN AND PELVIS WITH CONTRAST HISTORY: abd pain TECHNIQUE: Imaging performed of the abdomen and pelvis with IV contrast. Single phase imaging of the abdomen. Coronal and sagittal reformats are submitted. All CT scans at [facility] use at [address] one of these dose optimization techniques: automated exposure control; mA and/or kV adjustment per patient size (includes targeted exams where dose is matched to clinical indication); or iterative re construction. IV CONTRAST: Omnipaque 350; 100 mL IV. Oral contrast: No DLP: 522.32 mGy.cm COMPARISON: 05/18/2013, 08/16/2024 Lower thorax: Lung bases are clear. Heart is normal size. Small hiatal hernia. Liver/biliary system: Diffuse marked hepatic steatosis. No mass. No intrahepatic duct dilatation. Gallbladder: Normal. No gallstones or wall thickening. No pericholecystic fluid. Pancreas: Normal size pancreas and pancreatic duct. No adjacent inflammation. Spleen: Normal size spleen. No mass or infarct. Adrenal glands: Normal RIGHT adrenal gland. Long-term stability lobulated mass in the LEFT adrenal gl and measures 3.0 x 1.1 cm. Low-attenuation mass with calcification. Right kidney: Normal. Left kidney: Normal. Aorta: Normal. Lymphadenopathy: None. Free fluid: None. GI tract: No small bowel obstruction. Mild constipation. Appendix is not identified. Abdominal wall: Fat containing umbilical hernia. Pelvis: No free fluid or adenopathy within the pelvis. Bones: Thoracolumbar scoliosis. Mild anterior wedging of L2 and L3. CT/CT abdomen pelvis w con* [id number] IMPRESSION: 1. No GI tract obstruction. 2. No evidence for colitis. 3. No renal obstruction. 4. Diffuse hepatic steatosis. 5. No ascites.
[2024-09-03] MEDS: iohexol 350 mg/mL 500 mL Btl (per mL) IV ×2 (13:08→16:16)
[2024-09-03 13:22] LABS: UA Slide Review UA Slide Review Perf
[2024-09-03 13:43] LABS: Reflex Lactate Order REFLEX LACTIC ORDERD
[2024-09-03 14:08] LABS: Lipase 10 U/L (13-60)
[2024-09-03] MEDS: sodium chloride 0.9% 1,000 ML 999 ML IV (14:37)
[2024-09-03] MEDS: piperacillin-tazobactam 3.375 GM in sodium chloride 0.9% (plus) 50 ML IV (14:37)
--- NOTE | 2024-09-03 14:48 | ECG_ITS ---
[facility] Test Date: 2024-09-03 Pat Name: Graciela Woodson Department: Room: Gender: Female Refrigerator Repairman: : 1970 Requested By: Roberto Carlos Kate Order Number: [id number] Reading MD: NURY COBIAN Measurements Intervals [place] Rate: 157 P: 27 VT: 83 QRS: 36 QRSD: 84 T: -42 QT: 243 QTc: 394 Interpretive Statements SINUS TACHYCARDIA WITH SHORT VT INTERVAL, POSSIBLE ATRIAL FLUTTER POSSIBLE ANTERIOR MYOCARDIAL INFARCTION , OF INDETERMINATE AGE [30 ms Q WAVE IN V3/V4, OR R < 0.2 mV IN V4] MODERATE T-WAVE ABNORMALITY, CONSIDER LATERAL ISCHEMIA [-0.1+ mV T-WAVE IN I/aVL/V5/V6] MODERATE T-WAVE ABNORMALITY, CONSIDER INFERIOR ISCHEMIA [-0.1+ mV T-WAVE IN II/aVF] CRITICAL TEST RESULT Compared to ECG 09/03/2024 10:54:31 No significant changes Electronically Signed On 09-03-2024 23:11:21 SPOOLING SUPERVISOR by NURY COBIAN [id number]
[2024-09-03] MEDS: dilTIAZem 5 mg/mL SDV 5 mL 10 MG IVP (15:12)
--- NOTE | 2024-09-03 15:20 | P.HP_ITS ---
Providers/Chief Complaint 2 Primary Care Provider: MORA Ramos Chief Complaint: Weakness, N/V History of Present Illness Graciela Woodson is a 53 year old female with a past medical history of hypertension, anxiety, hyperlipidemia obesity who presents to [facility] due to complaints fatigue, malaise, abdominal pain, diarrhea, nausea, vomiting, low blood pressures, diarrhea. Currently patient is alert oriented x 3, following all commands denies any fevers, no chills does report nausea, vomiting for the last few days, with diarrhea abdominal cramping, no flank pain, no chest pain, no palpitations, no calf pain no recent travel no shortness of breath no cardiovascular history she is also been reporting dizziness upon changing position, concerns for dehydration, Review of Systems 2 Const: Denies: fever(s) Card: Denies: chest pain Resp: Denies: dyspnea GI: Reports: abdominal pain, nausea, vomiting and diarrhea Medications/Allergies Home Medications Medication Instructions Recorded Confirmed Last Taken Type lisinopril 10 mg tablet 10 mg PO BID 30 days #60 tabs 04/27/24 09/03/24 09/02/24 Rx pen needle, diabetic 33 gauge x #100 ea 04/27/24 09/03/24 05/14/24 Rx 5/32 (Advocate Pen Needle) tizanidine 4 mg tablet 4 mg PO Q8H PRN muscle spasticity 04/27/24 09/03/24 05/14/24 Rx #90 tabs clonidine HCl 0.1 mg tablet 0.1 mg PO BEDTIME 05/10/24 09/03/24 09/02/24 History pantoprazole 40 mg tablet,delayed 40 mg PO BID 30 days #60 tabs 05/10/24 09/03/24 09/02/24 Rx release sucralfate 100 mg/mL oral 10 ml PO BID 30 days #840 mL 06/05/24 09/03/24 09/02/24 Rx suspension ergocalciferol (vitamin D2) 1,250 1,250 mcg PO .weekly #12 caps 07/27/24 09/03/24 08/27/24 Rx mcg (50,000 unit) capsule ferrous sulfate 325 mg (65 mg 325 mg PO BID #60 tabs 07/27/24 09/03/24 09/02/24 Rx iron) tablet folic acid 1 mg tablet 1 mg PO DAILY #90 tabs 07/27/24 09/03/24 09/02/24 Rx amitriptyline 50 mg tablet 50 mg PO BEDTIME 09/03/24 09/03/24 09/02/24 History doxepin 10 mg capsule 10 mg PO BEDTIME 09/03/24 09/03/24 09/02/24 History meclizine 25 mg tablet 25 mg PO TID 09/03/24 09/03/24 09/02/24 History metoprolol succinate 25 mg 25 mg PO BEDTIME 09/03/24 09/03/24 09/02/24 History tablet,extended release 24 hr ondansetron 8 mg disintegrating 8 mg PO TID PRN Nausea 09/03/24 09/03/24 Unknown History tablet paroxetine HCl 20 mg tablet 20 mg PO QAM 09/03/24 09/03/24 09/02/24 History Allergies Allergy/AdvReac Type Severity Reaction Status Date / Time Alpha-Gal Allergy Unknown Verified 08/16/24 15:50 (Xzynmixom-Fpcqa-7,3-Gala PFSH Acute 2 PFSH: Medical History Anxiety Diagnosed in 2019 and has been on medication as needed managed by her primary care provider. She does not have a therapist. No pertinent past medical history Denies diabetes, asthma, hypertension, seizures, DVT/PE PCP: MORA Henley Surgical History History of foot surgery x 2 -2010--fracture of right ankle with surgery -2010--fracture of left leg with surgery History of tubal ligation Laparoscopic procedure done in 1999 History of dilation and curettage --done for retained placenta after delivery of her demise Family History Father Hypertension Stroke Heart disease Family/Other Hyperlipidemia paternal aunt Breast cancer maternal cousin, diagnosed at age 61 Uterine cancer paternal aunt, diagnosed in her 40s or 50s Heart disease paternal aunt Denies family history of Ovarian cancer Diabetes Thyroid disease Social History Smoking and tobacco/nicotine status: never used tobacco/nicotine Quit status (tobacco/nicotine): has quit using Lives independently: Yes Household members: spouse Housing: House Marital status: Current occupational status: employed Sexually active: Yes Current gender identity: Female Vitals/I&O/Wt Last Vital Signs Temp 97.5 F L 09/03/24 10:49 Pulse 142 H 09/03/24 15:00 Resp 22 H 09/03/24 15:00 BP 127/95 09/03/24 15:00 Pulse Ox 99 09/03/24 15:00 O2 Del Method Room Air 09/03/24 10:49 09/03/24 09/03/24 09/03/24 06:59 14:59 22:59 Intake Total 300 / 300 50 / 350 Balance 300 / 300 50 / 350 Weight last 48 hrs Weight 67.132 kg Physical Exam 2 Const: COMMON NORMALS: no acute distress and patient oriented x3 Eye: COMMON NORMALS: Equal, round and reactive pupils present and EOMs intact bilaterally Resp: COMMON NORMALS: normal respiratory effort, No retractions, No use of accessory muscles and clear to auscultation bilaterally AUSCULTATION: clear to auscultation bilaterally Cardio: COMMON NORMALS: no JVD, regular rate, regular rhythm, S1 normal heart sound present and S2 normal heart sound present RATE: tachycardic RHYTHM: regular rhythm HEART SOUNDS: S1 normal heart sound present and S2 normal heart sound present GI: COMMON NORMALS: Normal to inspection, nondistended, normoactive bowel sounds present, Soft to palpation and non-tender Extremity: COMMON NORMALS: no pedal edema Neuro: COMMON NORMALS: patient oriented x3, CN's II-XII intact bilaterally and moves all extremities Psych: COMMON NORMALS: mental status grossly normal Sepsis: Is patient septic: Yes Focused sepsis exam performed: Yes F ocused sepsis exam: DP PT pulses palpable, capillary refill greater than 2 seconds Date exam was performed: 09/03/24 Time exam was performed: 15:00 Data 09/03/24 11:40 09/03/24 11:40 Micro: Microbiology 09/03/24 11:40 Blood Culture - Preliminary Blood SPECIMEN COLLECTED 09/03/24 11:47 Blood Culture - Preliminary Blood SPECIMEN COLLECTED A&P Assessment and plan (1) Diarrhea: (2) Elevated lactic acid level: (3) Sepsis: (4) Transaminitis: (5) Pneumonia: Plan Tachycardia -Underlying liver rhythm does look sinus tachycardia -Will monitor closely for evolution into atrial fibs versus flutter -Magnesium level, TSH -CT angiogram of the chest ordered -Serial troponins, serial EKGs, telemetry monitoring Concerns for pneumonia on chest x-ray -Although does not have a cough, no fevers, is on room air -CT angiogram of the chest -Broad-spectrum antibiotic therapy for now vancomycin, Zosyn Nausea, vomiting, diarrhea, abdominal pain CT/CT abdomen pelvis w con* [id number] IMPRESSION: 1. No GI tract obstruction. 2. No evidence for colitis. 3. No renal obstruction. 4. Diffuse hepatic steatosis. 5. No ascites. -stool studies -us gallbladder -serieal abdominal exams Sepsis, sepsis features met given tachycardia, elevated lactic acid -IV fluids -Broad-spectrum antibiotic therapy -Follow blood cultures Transaminitis, ultrasound gallbladder Full code Lovenox for DVT prophylaxis Attestations 2 Medical Necessity Statement*: Patient requires hospitalization for sepsis, elevated lactic acid, diarrhea, tachycardia, pneumonia Diagnoses Diarrhea R19.7 Elevated lactic acid level R79.89 Sepsis A41.9 Transaminitis R74.01 Pneumonia J18.9
--- NOTE | 2024-09-03 15:27 | CTR_ITS ---
PROCEDURE INFORMATION: Exam: CTA Chest With Contrast Exam date and time: 09/03/2024 4:11 PM Age: 53 years old Clinical indication: Other: Tachycardia TECHNIQUE: Imaging protocol: Computed tomographic angiography of the chest with contrast. Exam focused on the arteries. 3D rendering (Not supervised by radiologist): MIP and/or 3D reconstructed images were created by the technologist. Radiation optimization: All CT scans at this facility use at least one of these dose optimization techniques: automated exposure control; mA and/or kV adjustment per patient size (includes targeted exams where dose is matched to clinical indication); or iterative reconstruction. Contrast material: OMNIPAQUE 350; Contrast volume: 76 ml; Contrast route: INTRAVENOUS (IV); COMPARISON: CR XR chest 1V portable [id number] 09/03/2024 11:02 AM RADIATION DOSE METRICS: Total DLP (mGy-cm): 369.93 FINDINGS: Pulmonary arteries: The pulmonary arteries are adequately opacified for evaluation to the subsegmental level. There is no filling defect to suggest embolism. Aorta: The aorta is unremarkable. There is no aneurysm. Lungs: There is no consolidation. Pleural spaces: There is no pleural effusion or pneumothorax. Heart: Heart size is normal. There is trace pericardial effusion. Lymph nodes: There is no mediastinal or hilar lymphadenopathy. Diaphragm: There is a moderate size sliding-type hiatal hernia. Liver: There is marked diffuse low attenuation of the liver parenchyma consistent fatty infiltration. Adrenal glands: There is an intermediate density 2.7 x 1.6 cm left adrenal nodule with associated dystrophic calcification. Bones/joints: Bones are unremarkable. Soft tissues: The extrathoracic soft tissues are unremarkable. CT/CT angio chest PE protcl [id number] IMPRESSION: 1. No pulmonary embolism. 2. 2.7 cm left adrenal nodule, stable since 03/24/2024. Recommend correlation with more remote prior imaging. Not available currently. 3. Incidental findings above.
--- NOTE | 2024-09-03 15:30 | US_ITS ---
WS: [id number] RIGHT UPPER QUADRANT ULTRASOUND HISTORY: diarrhea COMPARISON: 08/01/2024 Liver: 17.8 cm in length. Poorly visualized liver due to body habitus. Portal Vein: Normal hepatopetal flow with monophasic waveform. Gallbladder: Normally distended gallbladder with no stones or wall thickening. CBD: 0.6 cm Pancreas: Obscured. Right kidney: 9.4 cm in length. Normal size and echogenicity. No hydronephrosis or mass. Aorta and IVC: Unremarkable abdominal aorta and IVC. No ascites. US/US gall bladder [id number] IMPRESSION: 1. Technically difficult RIGHT upper quadrant ultrasound. 2. Negative gallbladder. 3. No intrahepatic bile duct dilatation.
[2024-09-03 15:43] LABS: D Dimer 0.32 ug/mLFEU (0-0.59)
[2024-09-03 16:00] LABS: NT Pro B Type Natriuretic Pept 140 pg/mL (0-125); Procalcitonin 0.13 ng/mL (0-0.5); Thyroid Stimulating Hormone 2.01 uIU/mL (0.27-4.20)
[2024-09-03] MEDS: sodium chloride 0.9% 1,000 ML 125 ML IV (16:10)
[2024-09-03 16:11] LABS: Magnesium 1.5 mg/dL (1.7-2.3)
[2024-09-03 16:18] LABS: Troponin(5th) Baseline < 6 ng/L (0-10)
[2024-09-03 16:19] LABS: Lactic Acid level (Lactate) 3.5 mmol/L (0.5-2.2)
--- NOTE | 2024-09-03 17:07 | ECG_ITS ---
[facility] Test Date: 2024-09-03 Pat Name: Graciela Woodson Department: Room: 277 Gender: Female Machine Fancy Stitcher: : 1970 Requested By: Roberto Carlos Kate Order Number: [id number] Reading MD: NURY COBIAN Measurements Intervals [place] Rate: 132 P: 31 KS: 141 QRS: 47 QRSD: 83 T: -51 QT: 332 QTc: 493 Interpretive Statements SINUS TACHYCARDIA LOW QRS VOLTAGE IN PRECORDIAL LEADS [QRS DEFLECTION < 1.0 mV IN CHEST LEADS] POSSIBLE ANTERIOR MYOCARDIAL INFARCTION , OF INDETERMINATE AGE [30 ms Q WAVE IN V3/V4, OR R < 0.2 mV IN V4] MODERATE T-WAVE ABNORMALITY, CONSIDER INFERIOR ISCHEMIA [-0.1+ mV T-WAVE IN II/aVF] Compared to ECG 09/03/2024 14:48:26 Low QRS voltage now present Myocardial infarct finding still present T-wave abnormality still present Possible ischemia still present Electronically Signed On 09-03-2024 23:18:03 MONUMENT SETTER by NURY COBIAN [id number]
[2024-09-03 17:26] LABS: Estmated Average Glucose 105; Hemoglobin A1C 5.3 % (4.0-6.0)
[2024-09-03 17:37] LABS: Chol HDL Ratio 3.97 mg/dL (0.0-4.40); Cholesterol 115 mg/dL (0-200); HDL Cholesterol 29 mg/dL (60-100); LDL Cholesterol Calculated 54 mg/dL (50-129); LDL HDL Ratio 1.86 RATIO (0.00-3.22); Triglycerides 161 mg/dL (0-150)
--- NOTE | 2024-09-03 17:52 | PHA.VACGOAL ---
Vancomycin Goal - Goal Vancomycin Goal:: 15-20 mg/L Vancomycin Indication:: Pneumonia - Therapy Current therapy:: Pip/Tazo Day of therpy:: Day 1 of [] Actual body weight (kg): 148 lb - Data Labs: WBC 10.30 10^3/uL (3.29-11.43) 09/03/24 11:40 RBC 3.46 10^6/uL (3.85-5.65) L 09/03/24 11:40 Hgb 10.00 g/dL (11.27-16.99) L 09/03/24 11:40 Hct 31.7 % (36-47) L 09/03/24 11:40 MCV 91.6 fl (85-98) 09/03/24 11:40 MCH 28.9 pg (27-33) 09/03/24 11:40 MCHC 31.5 g/dL (30-55) 09/03/24 11:40 RDW 16.2 % (12.1-15.1) H 09/03/24 11:40 Sodium 131 mmol/L (136-145) L 09/03/24 11:40 Potassium 5.2 mmol/L (3.5-5.1) H 09/03/24 11:40 Chloride 98 mmol/L (98-107) 09/03/24 11:40 Carbon Dioxide 22 mmol/L (22-29) 09/03/24 11:40 Anion Gap 16.2 (5-19) 09/03/24 11:40 BUN 11 mg/dL (6-20) 09/03/24 11:40 Creatinine 0.9 mg/dL (0.5-0.9) 09/03/24 11:40 GFR Calculation 65.0 mL/min (90-130) L 09/03/24 11:40 Last dialysis session:: N/A Treatment plan:: new consult Regimen:: LOADING DOSE OF 2 G PER DOSING PROTOCOL MAINTENANCE DOSE OF 750 MG Q12H Follow up:: WILL CONTINUE TO MONITOR AND FOLLOW UP DAILY
[2024-09-03] MEDS: magnesium sulfate premix 1 GM/100 ML PIGGYBACK IV (18:18)
[2024-09-03] MEDS: pantoprazole 40 mg SDV IVP (18:18)
[2024-09-03] MEDS: enoxaparin 40 mg/0.4 mL Syringe SUBCUT (18:18)
[2024-09-03 19:12] LABS: Troponin 5 2HR Delta 0.00001 ABS# (0-10)
[2024-09-03] MEDS: vancomycin 2,000 MG/400 ML PIGGYBACK 200 MG IV (19:59)
[2024-09-03] MEDS: albumin 25 G/100 ML BAG 60 G IV (22:15)
[2024-09-03 22:44] LABS: Lactate (Lactic Acid level) 1.1 mmol/L (0.5-2.2)
[2024-09-03 22:46] LABS: Troponin 5 6HR 6.82 ng/L (0-10); Troponin 5 6HR Delta 0.82001 ng/L (0-12)
[2024-09-03 22:48] LABS: Alanine Aminotransferase 31 U/L (0-33); Albumin Level 2.4 g/dL (3.5-5.2); Alkaline Phosphatase 164 U/L (35-105); Anion Gap 17.6 (5-19); Aspartate Amino Transferase 27 U/L (0-32); Blood Urea Nitrogen 9 mg/dL (6-20); Calcium 8.1 mg/dL (8.5-10.5); Carbon Dioxide 20 mmol/L (22-29); Chloride 100 mmol/L (98-107); Globulin 2.4 g/dL (1.3-4.6); Glomerular Filtration Rate 74.5 mL/min (90-130); Glucose 84 mg/dL (65-115); Osmolality Calculated 274 mOsm/kg (285-295); Phosphorus 3.2 mg/dL (2.5-4.5); Potassium 4.6 mmol/L (3.5-5.1); Sodium 133 mmol/L (136-145); Total Bilirubin 0.2 mg/dL (0.15-1.2); Total Protein 4.8 g/dL (6.6-8.7)
[2024-09-03] MEDS: acetaminophen 500 mg Tablet 1000 MG PO (23:33)
[2024-09-04] VITALS (7 sets, daily range): BP systolic 94–134; BP diastolic 58–92; PULSE 87–107; RESP 16–18; TEMP 36.9–37.2; O2SAT 96–98
[2024-09-04] MEDS: metoprolol tartrate 1 mg/1 mL SDV 5 mL 5 MG IVP (00:05)
--- NOTE | 2024-09-04 00:50 | ECG_ITS ---
[facility] Test Date: 2024-09-04 Pat Name: Graciela Woodson Department: Room: 277 Gender: Female Route Sales Trainee: : 1970 Requested By: Allyssa Can Order Number: [id number] Jaison MD: Adán Jackman M.D. Measurements Intervals [place] Rate: 125 P: 17 SD: 148 QRS: 8 QRSD: 85 T: 203 QT: 336 QTc: 484 Interpretive Statements SINUS TACHYCARDIA POSSIBLE ANTERIOR MYOCARDIAL INFARCTION , PROBABLY OLD [30 ms Q WAVE IN V3/V4, OR R < 0.2 mV IN V4] Compared to ECG 09/03/2024 20:47:37 T-wave abnormality no longer present Possible ischemia no longer present Myocardial infarct finding still present Electronically Signed On 09-08-2024 23:20:11 BLUEPRINTING AND PHOTOCOPY SUPERVISOR by Adán Jackman M.D. [id number]
[2024-09-04] MEDS: piperacillin-tazobactam 3.375 GM in sodium chloride 0.9% (plus) 50 ML IV ×3 (00:52→17:02)
[2024-09-04] MEDS: sodium chloride 0.9% 1,000 ML 125 ML IV ×2 (01:40→10:25)
[2024-09-04] MEDS: metoprolol tartrate 50 mg Tablet PO ×2 (02:29→22:04)
[2024-09-04] MEDS: prochlorperazine 10 mg/2 mL Inj IVP (02:30)
[2024-09-04] MEDS: VANCOMYCIN ADD-Vantage 750 MG in 0.9% NaCl ADD-Vantage 250 ML 250 MG IV ×2 (05:02→17:36)
[2024-09-04 06:10] LABS: Basophils # 0.1 10^3/uL (0.0-0.1); Basophils % 0.6 %; Hematocrit 28.6 % (36-47); Lymphocytes # 2.9 10^3/uL (0.8-4.8); Lymphocytes % 33.8 %; Mean Corpuscular HGB Conc 32.2 g/dL (30-55); Mean Corpuscular Hemoglobin 29.9 pg (27-33); Mean Corpuscular Volume 92.9 fl (85-98); Mean Platelet Volume 9.2 fL (7.4-10.4); Monocytes # 0.7 10^3/uL (0.2-0.9); Monocytes % 7.9 %; Neutrophils # 4.93 10^3/uL (1.8-7.7); Neutrophils % 57.5 %; Nucleated Red Blood Cells % 0 %; Platelet Count 402 10^3/cmm (157-399); Red Blood Count 3.08 10^6/uL (3.85-5.65); Red Cell Distribution Width 16.4 % (12.1-15.1); White Blood Count 8.58 10^3/uL (3.29-11.43)
[2024-09-04 06:22] LABS: INR 0.95 (0.8-1.2)
[2024-09-04 06:28] LABS: Lactate (Lactic Acid level) 0.9 mmol/L (0.5-2.2)
[2024-09-04 06:29] LABS: C Reactive Protein 3.7 mg/L (0.0-4.9); Creatine Phosphokinase 43 U/L (26-192); Phosphorus 3.6 mg/dL (2.5-4.5)
[2024-09-04 06:31] LABS: Alanine Aminotransferase 29 U/L (0-33); Albumin Level 3.1 g/dL (3.5-5.2); Alkaline Phosphatase 154 U/L (35-105); Anion Gap 17.9 (5-19); Aspartate Amino Transferase 32 U/L (0-32); Blood Urea Nitrogen 8 mg/dL (6-20); Calcium 8.7 mg/dL (8.5-10.5); Carbon Dioxide 20 mmol/L (22-29); Chloride 106 mmol/L (98-107); Creatinine Clr Calc Pharmacy 80.7454; Globulin 2.2 g/dL (1.3-4.6); Glomerular Filtration Rate 74.5 mL/min (90-130); Glucose 85 mg/dL (65-115); Osmolality Calculated 286 mOsm/kg (285-295); Potassium 4.9 mmol/L (3.5-5.1); Sodium 139 mmol/L (136-145); Total Bilirubin 0.4 mg/dL (0.15-1.2); Total Protein 5.3 g/dL (6.6-8.7)
[2024-09-04 06:38] LABS: NT Pro B Type Natriuretic Pept 780 pg/mL (0-125)
[2024-09-04] MEDS: albumin 25 G/100 ML BAG 60 G IV ×3 (07:06→22:04)
[2024-09-04] MEDS: PARoxetine 20 mg Tablet PO (07:07)
[2024-09-04 07:58] LABS: Sed Rate by Modified Western 14 mm/h (< OR = 30)
--- NOTE | 2024-09-04 10:14 | PC.CHAP ---
Pastoral Care Encounter/Spiritual Assessment Type of Contact [] Declined cut off sawyer log visit [] Patient/Family/Request visit [] Outpatient visit [] Follow-up visit [] Physician referral [] Code/Alert [x] Routine visit [] Staff referral [] Actively dying [] Patient sleeping [] Family support [] [] Out of room [] Palliative care [] [] Receiving care in room [] Pre-surgical visit [] Trauma [] Long length of stay [] ICU visit [] Other: Relational/Emotional Strength [x] Patient feels connected with others/family/visitors/staff [] Distress [] Loneliness/isolation [] Abandonment Spirituality of Patient [x] Person of Giulia [] Attends Tenriism of their Giulia [] Believes in Prayer [] Reads Bible or Anglican materials [] There are Spiritual issues to be addressed Golf Cart Assembler Interventions [x] Prayer [x] Active listening [x] Non-anxious presence [x] Spiritual/emotional support [] Crisis/trauma care [] Spiritual counseling [] Bereavement support [] Provided bereavement packet [] Provided Bible/devotional materials [] Provided toy/stuffed animal, coloring book to patient or family member [] Provided Communion [] Anointing/[place] [] Salvation [x] Completed spiritual assessment [] Other: Impact on Illness or Injury [] Angry [] Fearful [] Anxious [] Often cries [] Exhaustion [] Unable to work [] Unable to attend buddhist [] Unable to walk/stand [] Unable to read [] Unable to drive [] Unable to eat/drink [] Unable to sleep [] Unable to be with family [] Patient intubated [] Other: Summary Time spent with patient 5 min Pastoral Care Encounter/Spiritual Assessment Type of Contact [] Declined cut off sawyer log visit [] Patient/Family/Request visit [] Outpatient visit [] Follow-up visit [] Physician referral [] Code/Alert [] Routine visit [] Staff referral [] Actively dying [] Patient sleeping [] Family support [] [] Out of room [] Palliative care [] [] Receiving care in room [] Pre-surgical visit [] Trauma [] Long length of stay [] ICU visit [] Other: Relational/Emotional Strength [] Patient feels connected with others/family/visitors/staff [] Distress [] Loneliness/isolation [] Abandonment Spirituality of Patient [] Person of Giulia [] Attends Tenriism of their Giulia [] Believes in Prayer [] Reads Bible or Anglican materials [] There are Spiritual issues to be addressed Golf Cart Assembler Interventions [] Prayer [] Active listening [] Non-anxious presence [] Spiritual/emotional support [] Crisis/trauma care [] Spiritual counseling [] Bereavement support [] Provided bereavement packet [] Provided Bible/devotional materials [] Provided toy/stuffed animal, coloring book to patient or family member [] Provided Communion [] Anointing/[place] [] Salvation [] Completed spiritual assessment [] Other: Impact on Illness or Injury [] Angry [] Fearful [] Anxious [] Often cries [] Exhaustion [] Unable to work [] Unable to attend buddhist [] Unable to walk/stand [] Unable to read [] Unable to drive [] Unable to eat/drink [] Unable to sleep [] Unable to be with family [] Patient intubated [] Other: Summary Time spent with patient
[2024-09-04] MEDS: folic acid 1 mg Tablet PO (10:25)
--- NOTE | 2024-09-04 15:55 | P.PN_ITS ---
Subjective 2 Subjective: Patient was seen this morning, she denies any fevers, no chills, no cough heard abdominal pain is improving her diarrhea is improving, no nausea, no vomiting she would like to try something more substantial Vitals/I&O/Wt Last Vital Signs Temp 99.0 F 09/04/24 11:34 Pulse 106 H 09/04/24 11:34 Resp 17 09/04/24 11:34 BP 132/84 09/04/24 11:34 Pulse Ox 98 09/04/24 11:34 O2 Del Method Room Air 09/04/24 11:34 09/04/24 09/04/24 09/04/24 06:59 14:59 22:59 Intake Total 1359.833 / 3709.833 1340 / 1340 50 / 1390 Balance 1359.833 / 3709.833 1340 / 1340 50 / 1390 Weight last 48 hrs Weight 75.432 kg Weight 67.132 kg Physical Exam 2 Const: COMMON NORMALS: no acute distress and patient oriented x3 Resp: COMMON NORMALS: normal respiratory effort, No retractions, No use of accessory muscles and clear to auscultation bilaterally AUSCULTATION: clear to auscultation bilaterally Cardio: COMMON NORMALS: regular rate, regular rhythm, S1 normal heart sound present and S2 normal heart sound present RATE: regular rate RHYTHM: r egular rhythm HEART SOUNDS: S1 normal heart sound present and S2 normal heart sound present GI: COMMON NORMALS: Normal to inspection, nondistended, normoactive bowel sounds present and non-tender Extremity: COMMON NORMALS: no pedal edema Neuro: COMMON NORMALS: patient oriented x3 Psych: COMMON NORMALS: mental status grossly normal Data 09/04/24 05:30 09/04/24 05:30 Micro: Microbiology 09/03/24 11:40 Blood Culture - Preliminary Blood NEGATIVE TO DATE 09/03/24 11:47 Blood Culture - Preliminary Blood NEGATIVE TO DATE A&P Assessment and plan (1) Diarrhea: (2) Elevated lactic acid level: (3) Sepsis: (4) Transaminitis: (5) Pneumonia: Plan Tachycardia -Underlying liver rhythm does look sinus tachycardia -Will monitor closely for evolution into atrial fibs versus flutter -Magnesium level within normal limits, TSH within normal limits -CT angiogram of the chest no acute findings -Serial troponins, serial EKGs, telemetry monitoring Concerns for pneumonia on chest x-ray -Although does not have a cough, no fevers, is on room air -CT angiogram of the chest -Broad-spectrum antibiotic therapy for now vancomycin, Zosyn Nausea, vomiting, diarrhea, abdominal pain CT/CT abdomen pelvis w con* [id number] IMPRESSION: 1. No GI tract obstruction. 2. No evidence for colitis. 3. No renal obstruction. 4. Diffuse hepatic steatosis. 5. No ascites. -stool studies -us gallbladder no acute findings -serieal abdominal exams Sepsis, sepsis features met given tachycardia, elevated lactic acid -IV fluids -Broad-spectrum antibiotic therapy -Follow blood cultures Transaminitis, ultrasound gallbladder 2.7 centimeter left adrenal nodule, will have patient follow-up with hematology oncology as outpatient Full code Lovenox for DVT prophylaxis Attestations 2 Medical Necessity Statement*: Patient requires hospitalization for tachycardia, nausea, vomiting, sepsis, limited lactic acid Diagnoses Diarrhea R19.7 Elevated lactic acid level R79.89 Sepsis A41.9 Transaminitis R74.01 Pneumonia J18.9
[2024-09-04] MEDS: tizanidine 4 mg Tablet PO (16:28)
[2024-09-04] MEDS: enoxaparin 40 mg/0.4 mL Syringe SUBCUT (17:03)
[2024-09-04] MEDS: pantoprazole 40 mg SDV IVP (17:03)
--- NOTE | 2024-09-04 18:47 | USCV_ITS ---
Graciela Woodson Age: 53 Gender: F : 1970 Exam Date: 09/03/2024 19:37 Ordering Phys: Roberto Carlos Kate MD Technologist: [place] [facility] [place]: tachy BP: 100 / 69 HR: 101 Rhythm: Sinus Technical Quality: Adequate MEASUREMENTS (Male / Female) Normal Values 2D ECHO LVOT Diameter 2.1 cm LV Ejection Fraction MOD 4C 53.6 % LV Ejection Fraction MOD 2C 56.3 % LV Ejection Fraction 2C AL 55.4 % LA Diameter 3.3 cm RA Systolic Volume 4C AL 20.8 ml RA Systolic Volume 4C MOD 20.1 ml LA Sys Volume AL 42.8 cm cubed LA Sys Volume Index AL 22.8 cm cubed/m squared Aorta at Sinotubular Diameter 2.4 cm M-MODE LA Ao Ratio MM 1.2 AV Cusp Separation MM 1.8 cm DOPPLER AV Peak Velocity 122.0 cm/s LVOT Peak Velocity 87.0 cm/s AV Area Cont Eq vti 2.8 cm squared AV Area Cont Eq pk 2.4 cm squared MV Peak Velocity 116.0 cm/s MV Area PHT 3.9 cm squared Mitral E to A Ratio 9.0 TR Peak Velocity 291.0 cm/s TR Peak Gradient 33.9 mmHg TV Peak E Velocity 95.0 cm/s PV Peak Velocity 105.0 cm/s FINDINGS Left Ventricle Left ankle is normal in size. LV systolic function is normal with EF of 50-55%. No regional wall motion abnormalities are seen Right Ventricle Grossly normal Right Atrium Normal in size Left Atrium Normal in size Mitral Valve Structurally normal mitral valve. Mild mitral regurgitation. Aortic Valve Structurally normal aortic valve. No significant stenosis or regurgitation. Tricuspid Valve Mild tricuspid regurgitation. Insufficient TR jet to calculate RVSP Pulmonic Valve Not well visualized Pericardium Normal Aorta Normal in size IVC Appears to be normal. CONCLUSIONS LV systolic function is normal with EF of 50-55% Mild mitral regurgitation Mild tricuspid regurgitation No comparison studies are available Adán Jackman MD (Electronically Signed) Final Date: 05 September 2024 09:06 S
[2024-09-04] MEDS: amitriptyline 25 mg Tablet 50 MG PO (22:04)
[2024-09-04] MEDS: doxepin 10 mg Capsule PO (22:16)
[2024-09-05] VITALS (10 sets, daily range): BP systolic 78–121; BP diastolic 56–87; PULSE 77–109; RESP 16–18; TEMP 36.7–37.2; O2SAT 94–98
[2024-09-05] MEDS: piperacillin-tazobactam 3.375 GM in sodium chloride 0.9% (plus) 50 ML IV ×3 (00:38→17:35)
[2024-09-05 03:09] LABS: Basophils # 0.1 10^3/uL (0.0-0.1); Basophils % 0.8 %; Eosinophils % 0.6 %; Hematocrit 24.2 % (36-47); Lymphocytes # 2.7 10^3/uL (0.8-4.8); Lymphocytes % 41.2 %; Mean Corpuscular HGB Conc 31.4 g/dL (30-55); Mean Corpuscular Hemoglobin 28.9 pg (27-33); Mean Platelet Volume 8.8 fL (7.4-10.4); Monocytes # 0.7 10^3/uL (0.2-0.9); Monocytes % 10.6 %; Neutrophils # 3.06 10^3/uL (1.8-7.7); Neutrophils % 46.5 %; Nucleated Red Blood Cells % 0 %; Platelet Count 321 10^3/cmm (157-399); Red Blood Count 2.63 10^6/uL (3.85-5.65); Red Cell Distribution Width 16.3 % (12.1-15.1); White Blood Count 6.58 10^3/uL (3.29-11.43)
[2024-09-05 03:27] LABS: INR 1.13 (0.8-1.2)
[2024-09-05 03:43] LABS: Alanine Aminotransferase 24 U/L (0-33); Albumin Level 3.9 g/dL (3.5-5.2); Alkaline Phosphatase 118 U/L (35-105); Anion Gap 16.2 (5-19); Aspartate Amino Transferase 47 U/L (0-32); Blood Urea Nitrogen 4 mg/dL (6-20); Calcium 8.8 mg/dL (8.5-10.5); Carbon Dioxide 22 mmol/L (22-29); Chloride 107 mmol/L (98-107); Creatinine Clr Calc Pharmacy 80.7454; Globulin 1.9 g/dL (1.3-4.6); Glomerular Filtration Rate 74.5 mL/min (90-130); Glucose 104 mg/dL (65-115); Osmolality Calculated 289 mOsm/kg (285-295); Potassium 4.2 mmol/L (3.5-5.1); Sodium 141 mmol/L (136-145); Total Bilirubin 0.6 mg/dL (0.15-1.2); Total Protein 5.8 g/dL (6.6-8.7)
[2024-09-05 03:44] LABS: Magnesium 1.8 mg/dL (1.7-2.3); Phosphorus 3.2 mg/dL (2.5-4.5)
[2024-09-05 03:55] LABS: NT Pro B Type Natriuretic Pept 7539 pg/mL (0-125)
[2024-09-05 04:07] LABS: Creatine Phosphokinase 42 U/L (26-192)
[2024-09-05 04:53] LABS: Lactate (Lactic Acid level) 0.9 mmol/L (0.5-2.2)
[2024-09-05] MEDS: albumin 25 G/100 ML BAG 60 G IV (05:27)
[2024-09-05] MEDS: PARoxetine 20 mg Tablet PO (05:40)
[2024-09-05] MEDS: VANCOMYCIN ADD-Vantage 750 MG in 0.9% NaCl ADD-Vantage 250 ML 250 MG IV (06:59)
[2024-09-05] MEDS: tizanidine 4 mg Tablet PO ×2 (07:03→21:15)
[2024-09-05] MEDS: folic acid 1 mg Tablet PO (08:49)
[2024-09-05] MEDS: FUROsemide 10 mg/mL SDV 2mL 20 MG IVP (09:38)
[2024-09-05] MEDS: sucralfate 1 gm/10 mL Oral Liq UDC PO ×2 (09:38→21:15)
[2024-09-05] MEDS: pantoprazole 40 mg SDV IVP ×2 (09:39→21:15)
--- NOTE | 2024-09-05 11:49 | US_ITS ---
WS: [id number] ULTRASOUND SOFT TISSUES RIGHT cervical chain HISTORY: right neck cervical lymphnode chain, mass COMPARISON: None available. TECHNIQUE: 2-D and color Doppler imaging is submitted. Ultrasound is performed on the RIGHT cervical chain. No mass or significant lymphadenopathy identifie d. US/US soft tissue head neck [id number] IMPRESSION: Negative ultrasound RIGHT cervical chain.
[2024-09-05] MEDS: morphine 4 mg/mL SDV 1 mL 2 MG IVP (12:45)
--- NOTE | 2024-09-05 15:34 | P.PN_ITS ---
Subjective 2 Subjective: Patient denies any fevers, no chills, no nausea, no vomiting she does complain of some enlarged lymph nodes in the right neck, discussed hemoglobin 8.3, denies any bloody stools Vitals/I&O/Wt Last Vital Signs Temp 98.9 F 09/05/24 12:00 Pulse 93 09/05/24 12:00 Resp 18 09/05/24 12:45 BP 103/69 09/05/24 12:00 Pulse Ox 94 09/05/24 12:00 O2 Del Method Room Air 09/05/24 12:00 09/05/24 09/05/24 09/05/24 06:59 14:59 22:59 Intake Total 270 / 3257.083 950 / 950 50 / 1000 Balance 270 / 3257.083 950 / 950 50 / 1000 Weight last 48 hrs Weight 75.251 kg Weight 75.432 kg Physical Exam 2 Const: COMMON NORMALS: no acute distress and patient oriented x3 Resp: COMMON NORMALS: normal respiratory effort, No retractions, No use of accessory muscles and clear to auscultation bilaterally AUSCULTATION: clear to auscultation bilaterally Cardio: COMMON NORMALS: regular rate, regular rhythm, S1 normal heart sound present and S2 normal heart sound present RATE: regular rate RHYTHM: r egular rhythm HEART SOUNDS: S1 normal heart sound present and S2 normal heart sound present GI: COMMON NORMALS: Normal to inspection, nondistended, normoactive bowel sounds present and non-tender Extremity: COMMON NORMALS: no pedal edema Neuro: COMMON NORMALS: patient oriented x3 Psych: COMMON NORMALS: mental status grossly normal Data 09/05/24 12:32 09/05/24 02:45 Micro: Microbiology 09/03/24 11:40 Blood Culture - Preliminary Blood NEGATIVE TO DATE 09/03/24 11:47 Blood Culture - Preliminary Blood NEGATIVE TO DATE A&P Assessment and plan (1) Diarrhea: (2) Elevated lactic acid level: (3) Sepsis: (4) Transaminitis: (5) Pneumonia: Plan acute anemia -Hemoglobin 7.6 -History of colonoscopy May 2024 -Consult general surgery for EGD -Recheck hemoglobin this afternoon -Protonix, Carafate Tachycardia -Underlying liver rhythm does look sinus tachycardia -Will monitor closely for evolution into atrial fibs versus flutter -Magnesium level within normal limits, TSH within normal limits -CT angiogram of the chest no acute findings -Serial troponins, serial EKGs, telemetry monitoring Concerns for pneumonia on chest x-ray -Although does not have a cough, no fevers, is on room air -CT angiogram of the chest no acute findings -Broad-spectrum antibiotic therapy for now vancomycin, Zosyn Nausea, vomiting, diarrhea, abdominal pain CT/CT abdomen pelvis w con* [id number] IMPRESSION: 1. No GI tract obstruction. 2. No evidence for colitis. 3. No renal obstruction. 4. Diffuse hepatic steatosis. 5. No ascites. -stool studies -us gallbladder no acute findings -Serial abdominal exams Sepsis, sepsis features met given tachycardia, elevated lactic acid -IV fluids -Broad-spectrum antibiotic therapy -Follow blood cultures Transaminitis, ultrasound gallbladder 2.7 centimeter left adrenal nodule, will have patient follow-up with hematology oncology as outpatient Full code Lovenox for DVT prophylaxis Attestations 2 Medical Necessity Statement*: Patient requires hospitalization for tachycardia, anemia, concerns for pneumonia Diagnoses Diarrhea R19.7 Elevated lactic acid level R79.89 Sepsis A41.9 Transaminitis R74.01 Pneumonia J18.9
--- NOTE | 2024-09-05 16:28 | P.CONIM_ITS ---
Providers/Reason For Consult 2 Consulting Physician/Specialty*: Julio Pritchett, DO/General Surgery Reason for Consult*: Iron deficiency anemia, acute anemia Attending Physician: Roberto Carlos Kate MD Primary Care Provider: MORA Ramos History of Present Illness History of Present Illness Graciela Woodson is a 53 year old female with a history of iron deficiency anemia on oral iron supplementation who presented to the hospital with acute weakness. She was found to have an acute drop in hemoglobin. She had an EGD and colonoscopy 3 months ago that were both within normal limits. She does report that she has been getting heartburn and having black stools, which is normal for her because of her iron intake. She denies any bright red blood in her stool. Denies any abdominal pain Review of Systems 2 General: Reports: 10 or more systems reviewed and unremarkable except in HPI and below Medications/Allergies Home Medications Medication Instructions Recorded Confirmed Last Taken Type lisinopril 10 mg tablet 10 mg PO BID 30 days #60 tabs 04/27/24 09/03/24 09/02/24 Rx pen needle, diabetic 33 gauge x #100 ea 04/27/24 09/03/24 05/14/24 Rx 5/32 (Advocate Pen Needle) tizanidine 4 mg tablet 4 mg PO Q8H PRN muscle spasticity 04/27/24 09/03/24 05/14/24 Rx #90 tabs clonidine HCl 0.1 mg tablet 0.1 mg PO BEDTIME 05/10/24 09/03/24 09/02/24 History pantoprazole 40 mg tablet,delayed 40 mg PO BID 30 days #60 tabs 05/10/24 09/03/24 09/02/24 Rx release sucralfate 100 mg/mL oral 10 ml PO BID 30 days #840 mL 06/05/24 09/03/24 09/02/24 Rx suspension ergocalciferol (vitamin D2) 1,250 1,250 mcg PO .weekly #12 caps 07/27/24 09/03/24 08/27/24 Rx mcg (50,000 unit) capsule ferrous sulfate 325 mg (65 mg 325 mg PO BID #60 tabs 07/27/24 09/03/24 09/02/24 Rx iron) tablet folic acid 1 mg tablet 1 mg PO DAILY #90 tabs 07/27/24 09/03/24 09/02/24 Rx amitriptyline 50 mg tablet 50 mg PO BEDTIME 09/03/24 09/03/24 09/02/24 History doxepin 10 mg capsule 10 mg PO BEDTIME 09/03/24 09/03/24 09/02/24 History meclizine 25 mg tablet 25 mg PO TID 09/03/24 09/03/24 09/02/24 History metoprolol succinate 25 mg 25 mg PO BEDTIME 09/03/24 09/03/24 09/02/24 History tablet,extended release 24 hr ondansetron 8 mg disintegrating 8 mg PO TID PRN Nausea 09/03/24 09/03/24 Unknown History tablet paroxetine HCl 20 mg tablet 20 mg PO QAM 09/03/24 09/03/24 09/02/24 History Allergies Allergy/AdvReac Type Severity Reaction Status Date / Time Alpha-Gal Allergy Unknown Verified 08/16/24 15:50 (Lkvhdvsvl-Ecomm-2,3-Gala Current Medications Generic Name Dose Route Start Last Admin [facility] [place] PRN Reason Stop Dose Admin Amitriptyline HCl 50 mg 09/04/24 21:00 09/05/24 21:15 Amitriptyline 25 Mg Tablet PO 50 mg BEDTIME ISABELLE Administration Doxepin HCl 10 mg 09/03/24 21:00 09/05/24 21:15 Doxepin 10 Mg Capsule PO 10 mg BEDTIME ISABELLE Administration Folic Acid 1 mg 09/04/24 09:00 09/06/24 08:44 Folic Acid 1 Mg Tablet PO 1 mg DAILY ISABELLE Administration Piperacillin Sod/Tazobactam 50 mls @ 12.5 mls/hr 09/03/24 20:30 09/06/24 11:43 Sod 3.375 gm/ Sodium Chloride IV 0 mls/hr Q8H ISABELLE Infusion Morphine Sulfate 2 mg 09/03/24 16:52 09/05/24 12:45 Morphine 4 Mg/Ml Sdv 1 Ml IVP 2 mg Q4H PRN Administration SEVERE PAIN Pantoprazole Sodium 40 mg 09/05/24 09:00 09/06/24 08:44 Pantoprazole 40 Mg Sdv IVP 40 mg Q12H ISABELLE Administration Paroxetine HCl 20 mg 09/04/24 06:00 09/06/24 05:46 Paroxetine 20 Mg Tablet PO 20 mg QAM ISABELLE Administration Sucralfate 1 gm 09/05/24 09:00 09/06/24 08:44 Sucralfate 1 Gm/10 Ml Oral Liq Udc PO 1 gm Q12H ISABELLE Administration Tizanidine HCl 4 mg 09/04/24 15:19 09/06/24 08:46 Tizanidine 4 Mg Tablet PO 4 mg Q8H PRN Administration SPASMS PFSH Acute 2 PFSH: Medical History Anxiety Diagnosed in 2019 and has been on medication as needed managed by her primary care provider. She does not have a therapist. No pertinent past medical history Denies diabetes, asthma, hypertension, seizures, DVT/PE PCP: MORA Henley Surgical History History of foot surgery x 2 -2010--fracture of right ankle with surgery -2010--fracture of left leg with surgery History of tubal ligation Laparoscopic procedure done in 1999 History of dilation and curettage --done for retained placenta after delivery of her demise Family History Father Hypertension Stroke Heart disease Family/Other Hyperlipidemia paternal aunt Breast cancer maternal cousin, diagnosed at age 61 Uterine cancer paternal aunt, diagnosed in her 40s or 50s Heart disease paternal aunt Denies family history of Ovarian cancer Diabetes Thyroid disease Social History Smoking and tobacco/nicotine status: never used tobacco/nicotine Quit status (tobacco/nicotine): has quit using Lives independently: Yes Household members: spouse Housing: House Marital status: Current occupational status: employed Sexually active: Yes Current gender identity: Female Vitals/I&O/Wt Last Vital Signs Temp 97.4 F L 09/06/24 12:19 Pulse 75 09/06/24 12:19 Resp 16 09/06/24 12:19 BP 97/70 09/06/24 12:19 Pulse Ox 97 09/06/24 12:19 O2 Del Method Room Air 09/06/24 11:35 09/05/24 09/06/24 09/06/24 22:59 06:59 14:59 Intake Total 340 / 1290 2000 / 3290 61.25 / 61.25 Balance 340 / 1290 1999 61.25 / 61.25 Weight last 48 hrs Weight 167 lb 3.2 oz Weight 165 lb 14.4 oz Physical Exam 2 Narrative: General : Patient is well developed , no acute distress, oriented x3 Head : Normal cephalic, a-traumatic. Ears : Pinnae and external canal are normal. Hearing is normal. Eyes : PERRLA, Sclera and injection are normal. No conjunctival discharge. Nose : Mucous membranes are without erythema. Throat : buccal mucosa is normal, gums are without significant recession or hypertrophy. Lungs : Equal chest rise bilaterally, no use of accessory muscles, trachea is midline. Cor : Rate and rhythm are normal. Abdomen : Soft, ND, NT, no g/r/m Extremities : No edema, no cyanosis or clubbing, dorsalis pedis pulses are present bilaterally, non-tender to palpation of calves. Upper extremities are normal bilaterally. Back : non-tender to palpation, no CVA tenderness. Neuro : CN II - XII intact, Upper and lower extremities have equal and full strength Data 09/06/24 06:48 09/06/24 04:45 A&P Assessment and plan (1) Acute anemia: (2) Iron deficiency anemia: (3) Black stools: Plan N.p.o. after midnight EGD tomorrow The risks and benefits of the procedure, including bleeding, infection, intestinal perforation requiring surgery, missed lesion were explained to the patient. The patient is understanding of the risks and wishes to proceed. Continue pantoprazole twice daily and sucralfate Medical management per primary Coding Level of Care Code 03657 Diagnoses Acute anemia D64.9 Iron deficiency anemia D50.9 Black stools K92.1
[2024-09-05] MEDS: doxepin 10 mg Capsule PO (21:15)
[2024-09-05] MEDS: amitriptyline 25 mg Tablet 50 MG PO (21:15)
[2024-09-05] MEDS: metoprolol tartrate 50 mg Tablet PO (21:15)
--- NOTE | 2024-09-05 21:39 | ECG_ITS ---
[facility] Date: 2024-09-05 Pat Name: Graciela Woodson Department: Room: 277 Gender: Female Sales Development Specialist: : 1970 Requested By: Allyssa Can Order Number: [id number] Jaison MD: Adán Jackman M.D. Measurements Intervals [place] Rate: 116 P: 22 MA: 134 QRS: 26 QRSD: 85 T: 90 QT: 293 QTc: 407 Interpretive Statements SINUS TACHYCARDIA POSSIBLE ANTERIOR MYOCARDIAL INFARCTION , OF INDETERMINATE AGE [30 ms Q WAVE IN V3/V4, OR R < 0.2 mV IN V4] Compared to ECG 09/04/2024 00:50:06 No significant changes Electronically Signed On 09-07-2024 09:04:15 CREMATORY OPERATOR by Adán Jackman M.D. [id number]
--- NOTE | 2024-09-05 23:43 | PC.NURSE ---
Franke advised nurse that patients blood pressure was low at 78/56. Nurse communicated with Dr. Becerra. ordered 1000ml bolus of NS to infuse over one hour. Nurse will continue to monitor.
[2024-09-06] VITALS (17 sets, daily range): BP systolic 86–123; BP diastolic 55–81; PULSE 63–99; RESP 16–18; TEMP 36.1–36.9; O2SAT 93–100
[2024-09-06] MEDS: sodium chloride 0.9% 1,000 ML 999 ML IV ×2 (00:08→02:32)
[2024-09-06] MEDS: piperacillin-tazobactam 3.375 GM in sodium chloride 0.9% (plus) 50 ML IV ×2 (02:54→10:49)
[2024-09-06] MEDS: PARoxetine 20 mg Tablet PO (05:46)
[2024-09-06 06:19] LABS: Alanine Aminotransferase 26 U/L (0-33); Albumin Level 3.5 g/dL (3.5-5.2); Alkaline Phosphatase 113 U/L (35-105); Anion Gap 16.2 (5-19); Aspartate Amino Transferase 45 U/L (0-32); Blood Urea Nitrogen 3 mg/dL (6-20); Calcium 8.1 mg/dL (8.5-10.5); Carbon Dioxide 20 mmol/L (22-29); Chloride 109 mmol/L (98-107); Creatinine Clr Calc Pharmacy 80.9506; Globulin 1.5 g/dL (1.3-4.6); Glomerular Filtration Rate 74.5 mL/min (90-130); Glucose 101 mg/dL (65-115); Osmolality Calculated 289 mOsm/kg (285-295); Potassium 4.2 mmol/L (3.5-5.1); Sodium 141 mmol/L (136-145); Total Bilirubin 0.3 mg/dL (0.15-1.2)
[2024-09-06 06:22] LABS: NT Pro B Type Natriuretic Pept 4298 pg/mL (0-125); Procalcitonin 0.09 ng/mL (0-0.5)
[2024-09-06 06:35] LABS: Magnesium 1.6 mg/dL (1.7-2.3); Phosphorus 3.2 mg/dL (2.5-4.5)
[2024-09-06 07:08] LABS: Basophils % 0.8 %; Eosinophils % 0.8 %; Hematocrit 23.1 % (36-47); Lymphocytes # 2.5 10^3/uL (0.8-4.8); Lymphocytes % 49.4 %; Mean Corpuscular HGB Conc 31.6 g/dL (30-55); Mean Corpuscular Hemoglobin 29.2 pg (27-33); Mean Corpuscular Volume 92.4 fl (85-98); Mean Platelet Volume 9.2 fL (7.4-10.4); Monocytes # 0.5 10^3/uL (0.2-0.9); Monocytes % 10.5 %; Neutrophils # 1.97 10^3/uL (1.8-7.7); Neutrophils % 38.3 %; Nucleated Red Blood Cells % 0 %; Platelet Count 305 10^3/cmm (157-399); Red Cell Distribution Width 16.3 % (12.1-15.1); White Blood Count 5.14 10^3/uL (3.29-11.43)
[2024-09-06] MEDS: pantoprazole 40 mg SDV IVP ×2 (08:44→20:54)
[2024-09-06] MEDS: sucralfate 1 gm/10 mL Oral Liq UDC PO (08:44)
[2024-09-06] MEDS: folic acid 1 mg Tablet PO (08:44)
[2024-09-06] MEDS: tizanidine 4 mg Tablet PO ×2 (08:46→20:57)
--- NOTE | 2024-09-06 12:31 | P.PN_ITS ---
Vitals/I&O/Wt Last Vital Signs Temp 97.4 F L 09/06/24 12:19 Pulse 75 09/06/24 12:19 Resp 16 09/06/24 12:19 BP 97/70 09/06/24 12:19 Pulse Ox 97 09/06/24 12:19 O2 Del Method Room Air 09/06/24 11:35 09/05/24 09/06/24 09/06/24 22:59 06:59 14:59 Intake Total 340 / 1290 1999 / 3290 61.25 / 61.25 Balance 340 / 1290 1999 / 3290 61.25 / 61.25 Weight last 48 hrs Weight 167 lb 3.2 oz Weight 165 lb 14.4 oz Data 09/06/24 06:48 09/06/24 04:45 A&P Assessment and plan (1) Acute anemia: (2) Iron deficiency anemia: (3) Black stools: Plan EGD The risks and benefits of the procedure, including bleeding, infection, intestinal perforation requiring surgery, missed lesion were explained to the patient. The patient is understanding of the risks and wishes to proceed. Continue pantoprazole twice daily and sucralfate Medical management per primary Attestations 2 Medical Necessity Statement*: Per primary Coding Level of Care Code Acute Code for Chg Fwd Diagnoses Acute anemia D64.9 Iron deficiency anemia D50.9 Black stools K92.1
--- NOTE | 2024-09-06 14:05 | P.ANESASSM_ITS ---
Pre-Anesthetic Assessment Height/Weight: Height 5 ft 5 in Weight 167 lb 3.2 oz Temp Pulse Resp BP Pulse Ox O2 Del Method 97.4 F L 63 16 114/78 96 Room Air 09/06/24 12:19 09/06/24 13:36 09/06/24 12:19 09/06/24 13:36 09/06/24 13:36 09/06/24 11:35 Preop Diagnosis: Black tarry stools Operation Date: 09/06/24 14:00 Proposed Procedures p EGD(Not Applicable) - Julio Pritchett, DO Was Beta Jean-Pierre taken within 24 hours: Yes Was Clonidine taken within 24 hours: N/A Social No alcohol and No tobacco Quit smoking years ago Exam alert, oriented x 3, clear to auscultation bilaterally and regular rate & rhythm Airway Submandibular: within normal limits Cervical ROM: within normal limits Mallampati: Class II Comments: Comments: Edentulous Anesthetic Plan ASA status: 3 Anesthesia: MAC Other: Patient initially admitted on 09/03/2024 with nausea and vomiting. Patient found to be anemic throughout hospital stay with dark stools Labs reviewed today hemoglobin 7.3, 1 unit of blood completed this a.m. Denies any issues with anesthesia in the past History of hypertension on lisinopril and metoprolol GERD on Protonix and sucralfate currently Will plan on MAC anesthetic Medications/Allergies Home Medications Medication Instructions Recorded Confirmed Last Taken Type lisinopril 10 mg tablet 10 mg PO BID 30 days #60 tabs 04/27/24 09/03/24 09/02/24 Rx pen needle, diabetic 33 gauge x #100 ea 04/27/24 09/03/24 05/14/24 Rx 5/32 (Advocate Pen Needle) tizanidine 4 mg tablet 4 mg PO Q8H PRN muscle spasticity 04/27/24 09/03/24 05/14/24 Rx #90 tabs clonidine HCl 0.1 mg tablet 0.1 mg PO BEDTIME 05/10/24 09/03/24 09/02/24 History pantoprazole 40 mg tablet,delayed 40 mg PO BID 30 days #60 tabs 05/10/24 09/03/24 09/02/24 Rx release sucralfate 100 mg/mL oral 10 ml PO BID 30 days #840 mL 06/05/24 09/03/24 09/02/24 Rx suspension ergocalciferol (vitamin D2) 1,250 1,250 mcg PO .weekly #12 caps 07/27/24 09/03/24 08/27/24 Rx mcg (50,000 unit) capsule ferrous sulfate 325 mg (65 mg 325 mg PO BID #60 tabs 07/27/24 09/03/24 09/02/24 Rx iron) tablet folic acid 1 mg tablet 1 mg PO DAILY #90 tabs 07/27/24 09/03/24 09/02/24 Rx amitriptyline 50 mg tablet 50 mg PO BEDTIME 09/03/24 09/03/24 09/02/24 History doxepin 10 mg capsule 10 mg PO BEDTIME 09/03/24 09/03/24 09/02/24 History meclizine 25 mg tablet 25 mg PO TID 09/03/24 09/03/24 09/02/24 History metoprolol succinate 25 mg 25 mg PO BEDTIME 09/03/24 09/03/24 09/02/24 History tablet,extended release 24 hr ondansetron 8 mg disintegrating 8 mg PO TID PRN Nausea 09/03/24 09/03/24 Unknown History tablet paroxetine HCl 20 mg tablet 20 mg PO QAM 09/03/24 09/03/24 09/02/24 History Allergies Allergy/AdvReac Type Severity Reaction Status Date / Time Alpha-Gal Allergy Unknown Verified 08/16/24 15:50 (Mdyqcwiva-Xhovl-8,3-Gala Current Medications Generic Name Dose Route Start Last Admin Trade Name Freq PRN Reason Stop Dose Admin Amitriptyline HCl 50 mg 09/04/24 21:00 09/05/24 21:15 Amitriptyline 25 Mg Tablet PO 50 mg BEDTIME ISABELLE Administration Doxepin HCl 10 mg 09/03/24 21:00 09/05/24 21:15 Doxepin 10 Mg Capsule PO 10 mg BEDTIME ISABELLE Administration Folic Acid 1 mg 09/04/24 09:00 09/06/24 08:44 Folic Acid 1 Mg Tablet PO 1 mg DAILY ISABELLE Administration Piperacillin Sod/Tazobactam 50 mls @ 12.5 mls/hr 09/03/24 20:30 09/06/24 11:43 Sod 3.375 gm/ Sodium Chloride IV 0 mls/hr Q8H ISABELLE Infusion Morphine Sulfate 2 mg 09/03/24 16:52 09/05/24 12:45 Morphine 4 Mg/Ml Sdv 1 Ml IVP 2 mg Q4H PRN Administration SEVERE PAIN Pantoprazole Sodium 40 mg 09/05/24 09:00 09/06/24 08:44 Pantoprazole 40 Mg Sdv IVP 40 mg Q12H ISABELLE Administration Paroxetine HCl 20 mg 09/04/24 06:00 09/06/24 05:46 Paroxetine 20 Mg Tablet PO 20 mg QAM ISABELLE Administration Sucralfate 1 gm 09/05/24 09:00 09/06/24 08:44 Sucralfate 1 Gm/10 Ml Oral Liq Udc PO 1 gm Q12H ISABELLE Administration Tizanidine HCl 4 mg 09/04/24 15:19 09/06/24 08:46 Tizanidine 4 Mg Tablet PO 4 mg Q8H PRN Administration SPASMS PFSH Anesthesia Medical History Anxiety Diagnosed in 2018 and has been on medication as needed managed by her primary care provider. She does not have a therapist. No pertinent past medical history Denies diabetes, asthma, hypertension, seizures, DVT/PE PCP: MORA Henley Surgical History History of foot surgery x 2 -2010--fracture of right ankle with surgery -2010--fracture of left leg with surgery History of tubal ligation Laparoscopic procedure done in 1999 History of dilation and curettage --done for retained placenta after delivery of her demise Family History Father Hypertension Stroke Heart disease Family/Other Hyperlipidemia paternal aunt Breast cancer maternal cousin, diagnosed at age 61 Uterine cancer paternal aunt, diagnosed in her 40s or 50s Heart disease paternal aunt Denies family history of Ovarian cancer Diabetes Thyroid disease Social History Smoking and tobacco/nicotine status: never used tobacco/nicotine Quit status (tobacco/nicotine): has quit using Lives independently: Yes Household members: spouse Housing: House Marital status: Current occupational status: employed Sexually active: Yes Current gender identity: Female Data Anesthesia 09/06/24 06:48 09/06/24 04:45 Short CBC 09/05/24 09/05/24 09/06/24 Range/Units 02:45 12:32 04:45 WBC 6.58 Cancelled (3.29-11.43) 10^3/uL Hgb 7.60 L 8.30 L Cancelled (11.27-16.99) g/dL Hct 24.2 L 26.0 L Cancelled (36-47) % MCV 92.0 Cancelled (85-98) fl Plt Count 321 Cancelled (157-399) 10^3/cmm Neut % (Auto) 46.5 Cancelled % Neut # (Auto) 3.06 Cancelled (1.8-7.7) 10^3/uL 09/06/24 Range/Units 06:48 WBC 5.14 (3.29-11.43) 10^3/uL Hgb 7.30 L (11.27-16.99) g/dL Hct 23.1 L (36-47) % MCV 92.4 (85-98) fl Plt Count 305 (157-399) 10^3/cmm Neut % (Auto) 38.3 % Neut # (Auto) 1.97 (1.8-7.7) 10^3/uL BMP 09/05/24 09/06/24 02:45 04:45 Sodium 141 141 Potassium 4.2 4.2 Chloride 107 109 H Carbon Dioxide 22 20 L BUN 4 L 3 L Creatinine 0.8 0.8 Glucose 104 101 Calcium 8.8 8.1 L Cardiac Enzymes 09/05/24 09/06/24 Range/Units 02:45 04:45 Creatine Kinase 42 (26-192) U/L NT-Pro-B Natriuret Pep 7539 H 4298 H (0-125) pg/mL Liver Function 09/05/24 09/06/24 Range/Units 02:45 04:45 Total Bilirubin 0.6 0.3 (0.15-1.2) mg/dL AST 47 H 45 H (0-32) U/L ALT 24 26 (0-33) U/L Alkaline Phosphatase 118 H 113 H (35-105) U/L Albumin 3.9 3.5 (3.5-5.2) g/dL Blood Bank 09/06/24 09:44 Blood Type A Positive Rho(D) Type Rh positive Antibody Screen Negative Coags 09/05/24 09/06/24 02:45 04:45 PT 15.30 H INR 1.13 C-Reactive Protein 3.0 3.0 Cardiac Studies: 2 Echocardiogram 09/04/24
--- NOTE | 2024-09-06 16:18 | P.PN_ITS ---
Subjective 2 Subjective: Patient was seen this morning, did have episodes of tachycardia and low blood pressure during the night, currently alert awake she does report intermittent episodes of palpitation, she has a family history of atrial fibrillation, her hemoglobin is down to 7.3 discussed transfusing her unit of PRBC she is currently n.p.o. for EGD today discussed as her blood cultures are negative, she is afebrile we will stop her antibiotics, Vitals/I&O/Wt Last Vital Signs Temp 97.9 F 09/06/24 15:40 Pulse 72 09/06/24 15:40 Resp 16 09/06/24 15:40 BP 111/81 09/06/24 15:40 Pulse Ox 100 09/06/24 15:40 O2 Del Method Room Air 09/06/24 15:40 O2 Flow Rate 4 09/06/24 14:34 09/06/24 09/06/24 09/06/24 06:59 14:59 22:59 Intake Total 1999 311.25 / 311.25 Balance 1999 311.25 / 311.25 Weight last 48 hrs Weight 75.841 kg Weight 75.251 kg Physical Exam 2 Const: COMMON NORMALS: no acute distress and patient oriented x3 Resp: COMMON NORMALS: normal respiratory effort, No retractions, No use of accessory muscles and clear to auscultation bilaterally AUSCULTATION: clear to auscultation bilaterally Cardio: COMMON NORMALS: regular rate, regular rhythm, S1 normal heart sound present and S2 normal heart sound present RATE: regular rate RHYTHM: r egular rhythm HEART SOUNDS: S1 normal heart sound present and S2 normal heart sound present GI: COMMON NORMALS: Normal to inspection, nondistended, normoactive bowel sounds present and non-tender Extremity: COMMON NORMALS: no pedal edema Neuro: COMMON NORMALS: patient oriented x3 Psych: COMMON NORMALS: mental status grossly normal Data 09/06/24 06:48 09/06/24 04:45 A&P Assessment and plan (1) Diarrhea: (2) Elevated lactic acid level: (3) Sepsis: (4) Transaminitis: (5) Pneumonia: Plan acute anemia -Hemoglobin 9.3, will transfuse 1 unit PRBC -History of colonoscopy May 2024 -Consult general surgery for EGD -Recheck hemoglobin this afternoon -Protonix, Carafate Tachycardia -Underlying liver rhythm does look sinus tachycardia -Will monitor closely for evolution into atrial fibs versus flutter -Magnesium level within normal limits, TSH within normal limits -CT angiogram of the chest no acute findings -Serial troponins, serial EKGs, telemetry monitoring -Continues to have intermittent episodes of tachycardia, will discharge her in the event monitor Concerns for pneumonia on chest x-ray -Although does not have a cough, no fevers, is on room air -CT angiogram of the chest no acute findings -De-escalate off IV antibiotics to p.o. antibiotics Nausea, vomiting, diarrhea, abdominal pain CT/CT abdomen pelvis w con* [id number] IMPRESSION: 1. No GI tract obstruction. 2. No evidence for colitis. 3. No renal obstruction. 4. Diffuse hepatic steatosis. 5. No ascites. -stool studies -us gallbladder no acute findings -Serial abdominal exams Sepsis, sepsis features met given tachycardia, elevated lactic acid, resolved -IV fluids Transition to p.o. antibiotics -Follow blood cultures Transaminitis, ultrasound gallbladder as above 2.7 centimeter left adrenal nodule, will have patient follow-up with hematology oncology as outpatient Full code Lovenox for DVT prophylaxis Attestations 2 Medical Necessity Statement*: Patient requires hospitalization for acute anemia, tachycardia, undergoing EGD Diagnoses Diarrhea R19.7 Elevated lactic acid level R79.89 Sepsis A41.9 Transaminitis R74.01 Pneumonia J18.9
[2024-09-06] MEDS: morphine 4 mg/mL SDV 1 mL 2 MG IVP (17:03)
[2024-09-06] MEDS: amoxicillin-clav 875-125 mg Tablet 1 TAB PO (17:04)
[2024-09-06 19:00] LABS: Hematocrit 30.9 % (36-47)
[2024-09-06] MEDS: amitriptyline 25 mg Tablet 50 MG PO (20:54)
[2024-09-06] MEDS: metoprolol succinate ER (24 HR) 25 mg Tablet PO (20:54)
[2024-09-06] MEDS: doxepin 10 mg Capsule PO (20:54)
[2024-09-07] VITALS (8 sets, daily range): BP systolic 87–149; BP diastolic 59–101; PULSE 84–112; RESP 15–18; TEMP 36.6–36.9; O2SAT 95–98
[2024-09-07] MEDS: PARoxetine 20 mg Tablet PO (05:17)
[2024-09-07] MEDS: acetaminophen 325 mg Tablet 650 MG PO (05:32)
[2024-09-07] MEDS: pantoprazole 40 mg SDV IVP (09:05)
[2024-09-07] MEDS: amoxicillin-clav 875-125 mg Tablet 1 TAB PO (09:05)
[2024-09-07] MEDS: folic acid 1 mg Tablet PO (09:05)
[2024-09-07 09:06] LABS: Basophils # 0.1 10^3/uL (0.0-0.1); Basophils % 0.8 %; Eosinophils # 0.1 10^3/uL (0.0-0.8); Eosinophils % 1.1 %; Hematocrit 29.6 % (36-47); Lymphocytes % 45.5 %; Mean Corpuscular HGB Conc 32.4 g/dL (30-55); Mean Corpuscular Hemoglobin 30.1 pg (27-33); Mean Corpuscular Volume 92.8 fl (85-98); Mean Platelet Volume 9.1 fL (7.4-10.4); Monocytes # 0.6 10^3/uL (0.2-0.9); Monocytes % 9.2 %; Neutrophils # 2.88 10^3/uL (1.8-7.7); Neutrophils % 43.1 %; Nucleated Red Blood Cells % 0 %; Platelet Count 300 10^3/cmm (157-399); Red Blood Count 3.19 10^6/uL (3.85-5.65); Red Cell Distribution Width 17.2 % (12.1-15.1); White Blood Count 6.66 10^3/uL (3.29-11.43)
[2024-09-07 09:21] LABS: Alanine Aminotransferase 30 U/L (0-33); Albumin Level 3.4 g/dL (3.5-5.2); Alkaline Phosphatase 120 U/L (35-105); Anion Gap 16.7 (5-19); Aspartate Amino Transferase 44 U/L (0-32); Blood Urea Nitrogen 2 mg/dL (6-20); Calcium 8.4 mg/dL (8.5-10.5); Carbon Dioxide 20 mmol/L (22-29); Chloride 105 mmol/L (98-107); Creatinine Clr Calc Pharmacy 92.8791; Globulin 1.8 g/dL (1.3-4.6); Glomerular Filtration Rate 86.9 mL/min (90-130); Glucose 117 mg/dL (65-115); Osmolality Calculated 283 mOsm/kg (285-295); Potassium 3.7 mmol/L (3.5-5.1); Sodium 138 mmol/L (136-145); Total Bilirubin 0.4 mg/dL (0.15-1.2); Total Protein 5.2 g/dL (6.6-8.7)
--- NOTE | 2024-09-07 10:32 | CT_ITS ---
WS: [id number] CT HEAD NONCONTRAST HISTORY: HEAD ACHES TECHNIQUE: Contiguous axial imaging performed through the brain. Bone and soft tissue windows. Sagitt al and coronal reformats reviewed. All CT scans at [facility] use at least one of these dose optimization techniques: automated exposure control; mA and/or kV adjustment per patient size (includ es targeted exams where dose is matched to clinical indication); or iterative reconstruction. DLP: 1111.48 mGy.cm COMPARISON: 11/26/2016 No acute intracranial hemorrhage, midline shift or mass effect. Very mild cerebral atrophy. No significant small vessel disease and no prior infarct. Ventricles: Normal size with no hydrocephalus. Paranasal sinuses: As visualized are clear. Mastoid air cells: Well pneumatized. Calvarium and scalp: Skull is intact with no soft tissue edema or swelling. CT/CT head wo con* [id number] IMPRESSION: 1. No acute intracranial hemorrhage or edema. 2. Mild cerebral atrophy with no prior infarct. 3. No paranasal sinus disease.
[2024-09-07] MEDS: TRAMadol 50 mg Tablet PO (10:43)
--- NOTE | 2024-09-07 12:11 | P.PN_ITS ---
Subjective 2 Subjective: Patient seen and examined. Denies any abdominal pain, nausea, emesis, hematochezia and/or melena Vitals/I&O/Wt Last Vital Signs Temp 98.4 F 09/07/24 08:34 Pulse 102 H 09/07/24 09:02 Resp 18 09/07/24 08:34 BP 139/94 09/07/24 09:02 Pulse Ox 97 09/07/24 09:02 O2 Del Method Room Air 09/07/24 09:02 O2 Flow Rate 4 09/06/24 14:34 09/06/24 09/07/24 09/07/24 22:59 06:59 14:59 Intake Total 438.75 / 750.00 700 / 1450.00 Balance 438.75 / 750.00 700 / 1450.00 Weight last 48 hrs Weight 168 lb 9.6 oz Weight 167 lb 3.2 oz Physical Exam 2 Narrative: general: No acute distress, awake alert and oriented x 3 Abdomen: Soft, nontender, nondistended Data 09/07/24 08:53 09/07/24 08:53 A&P Assessment and plan (1) Acute anemia: (2) Iron deficiency anemia: (3) Black stools: Plan Postoperative day #1 status post EGD with biopsy Continue pantoprazole twice daily Regular diet Follow-up in my office in 2 weeks to go over biopsy results Medical management per primary Attestations 2 Medical Necessity Statement*: Per primary Coding Level of Care Code 86197 Diagnoses Acute anemia D64.9 Iron deficiency anemia D50.9 Black stools K92.1
--- NOTE | 2024-09-07 12:19 | PM.DCS ---
Discharge Providers Date of Admission: 09/03/24 16:09 Date of Discharge: September 07, 2024 Attending Provider at Admission: Roberto Carlos Kate MD Attending Provider at Discharge: Roberto Carlos Kate MD Primary Care Provider: MORA Ramos Diagnoses at Discharge Discharge Diagnosis (1) Acute anemia: Status: Acute (2) Iron deficiency anemia: Status: Acute (3) Black stools: Status: Acute Reason for Visit Reason for Visit: Weakness, N/V Hospital Course Hospital Course Graciela Woodson is a 53 year old female with a past medical history of hypertension, anxiety, hyperlipidemia obesity who presents to [facility] due to complaints fatigue, malaise, abdominal pain, diarrhea, nausea, vomiting, low blood pressures, diarrhea. Currently patient is alert oriented x 3, following all commands denies any fevers, no chills does report nausea, vomiting for the last few days, with diarrhea abdominal cramping, no flank pain, no chest pain, no palpitations, no calf pain no recent travel no shortness of breath no cardiovascular history she is also been reporting dizziness upon changing position, concerns for dehydration, Patient was admitted to [facility] for tachycardia, had intermittent episodes of tachycardia during her hospitalization her heart rates up to the 150s, EKGs look like sinus tachycardia, echocardiogram showed no acute findings, no chest pain complaints, will discharge her on her home metoprolol, discharged with event monitor placed, with close follow-up cardiology outpatient For concerns for nausea, vomiting, diarrhea, abdominal pain, transaminitis, CT imaging does shows diffuse hepatic steatosis, follow-up with primary care provider as outpatient for monitoring liver function She was also found to have a 2.7 cm left adrenal nodule follow-up with oncology for monitoring There was concerns for pneumonia during hospitalization seen on chest x-ray, discharged on Augmentin Her hospitalization was complicated by acute anemia requiring 1 unit PRBC, did have an EGD which had no acute findings, advised to avoid NSAIDs on discharge, discharged with close follow-up with primary care and general surgery for recheck check hemoglobin as outpatient There was concern for sepsis secondary to pneumonia which has resolved For her headache, CT head within normal limits, improved with Ultram, follow-up with primary care provider as outpatient Physical Exam Const: COMMON NORMALS: no acute distress and patient oriented x3 Resp: COMMON NORMALS: normal respiratory effort, No retractions, No use of accessory muscles and clear to auscultation bilaterally AUSCULTATION: clear to auscultation bilaterally Cardio: COMMON NORMALS: regular rate, regular rhythm, S1 normal heart sound present and S2 normal heart sound present RATE: regular rate RHYTHM: regular rhythm HEART SOUNDS: S1 normal heart sound present and S2 normal heart sound present GI: COMMON NORMALS: Normal to inspection, nondistended, normoactive bowel sounds present and non-tender Extremity: COMMON NORMALS: no pedal edema Neuro: COMMON NORMALS: patient oriented x3 Psych: COMMON NORMALS: mental status grossly normal Discharge Data Studies Completed and Pending Completed Studies During Hospitalization Category Date Time Status CT abdomen pelvis w con* [id number] Stat Cat Scan 09/03/24 12:[address] angio chest PE protcl [id number] Stat Cat Scan 09/03/24 15:[address] head wo con* [id number] Routine Cat Scan 09/07/24 10:32 Completed XR chest 1V portable [id number] Stat Exams 09/03/24 10:51 Completed CV. echo complete* [id number] Routine Ultrasound 09/04/24 18:47 Completed US gall bladder [id number] Stat Ultrasound 09/03/24 15:30 Completed US soft tissue head neck [id number] Routine Ultrasound 09/05/24 11:49 Completed Pending at discharge Category Date Time Status Blood Culture Stat Lab 09/03/24 11:47 Results C.Diff PCR (Lab) Routine Lab 09/03/24 15:33 Ordered Immunochemical Fecal OCB Routine Lab 09/03/24 15:33 Ordered Lactoferrin Routine Lab 09/03/24 15:33 Ordered OVA and Parasites, Conc and PE Routine Lab 09/03/24 15:33 Ordered Occult Blood Stool [Immunochemical Fecal OCB] Routine Lab 09/05/24 08:57 Uncollected Salmonella / Shigella / Campy Routine Lab 09/03/24 15:33 Ordered Pathology: Surgical [PTH] Routine Pth 09/06/24 14:26 Received Radiology Impressions Chest X-Ray 09/03/24 10:51 IMPRESSION: 1. Pulmonary atelectasis or acute infiltrates within left lower chest. 2. Small left pleural effusion. Abdomen/Pelvis CT 09/03/24 12:54 IMPRESSION: 1. No GI tract obstruction. 2. No evidence for colitis. 3. No renal obstruction. 4. Diffuse hepatic steatosis. 5. No ascites. Chest CTA 09/03/24 15:27 IMPRESSION: 1. No pulmonary embolism. 2. 2.7 cm left adrenal nodule, stable since 03/24/2024. Recommend correlation with more remote prior imaging. Not available currently. 3. Incidental findings above. Gallbladder Ultrasound 09/03/24 15:30 IMPRESSION: 1. Technically difficult RIGHT upper quadrant ultrasound. 2. Negative gallbladder. 3. No intrahepatic bile duct dilatation. Head/Neck Ultrasound 09/05/24 11:49 IMPRESSION: Negative ultrasound RIGHT cervical chain. Head CT 09/07/24 10:32 IMPRESSION: 1. No acute intracranial hemorrhage or edema. 2. Mild cerebral atrophy with no prior infarct. 3. No paranasal sinus disease. Laboratory Results WBC 6.66 10^3/uL (3.29-11.43) 09/07/24 08:53 Corrected WBC Cancelled 09/06/24 04:45 RBC 3.19 10^6/uL (3.85-5.65) L 09/07/24 08:53 Hgb 9.60 g/dL (11.27-16.99) L 09/07/24 08:53 Hct 29.6 % (36-47) L 09/07/24 08:53 MCV 92.8 fl (85-98) 09/07/24 08:53 MCH 30.1 pg (27-33) 09/07/24 08:53 MCHC 32.4 g/dL (30-55) 09/07/24 08:53 RDW 17.2 % (12.1-15.1) H 09/07/24 08:53 Plt Count 300 10^3/cmm (157-399) 09/07/24 08:53 MPV 9.1 fL (7.4-10.4) 09/07/24 08:53 Gran % Cancelled 09/06/24 04:45 Neut % (Auto) 43.1 % 09/07/24 08:53 Lymph % (Auto) 45.5 % 09/07/24 08:53 Mitchell % (Auto) 9.2 % 09/07/24 08:53 Eos % (Auto) 1.1 % 09/07/24 08:53 Baso % (Auto) 0.8 % 09/07/24 08:53 Neut # (Auto) 2.88 10^3/uL (1.8-7.7) 09/07/24 08:53 Lymph # (Auto) 3.0 10^3/uL (0.8-4.8) 09/07/24 08:53 Mitchell # (Auto) 0.6 10^3/uL (0.2-0.9) 09/07/24 08:53 Eos # (Auto) 0.1 10^3/uL (0.0-0.8) 09/07/24 08:53 Baso # (Auto) 0.1 10^3/uL (0.0-0.1) 09/07/24 08:53 Absolute Gran (auto) Cancelled 09/06/24 04:45 Nucleated RBC % (auto) 0 % 09/07/24 08:53 Nucleated RBCs # 0.0 /100WBC 09/07/24 08:53 ESR Westergren 14 mm/h (< OR = 30) 09/03/24 15:52 ESR Comment Not Reportable 09/03/24 15:52 PT 15.30 SECONDS (12.1-14.9) H 09/05/24 02:45 INR 1.13 (0.8-1.2) 09/05/24 02:45 D-Dimer 0.32 ug/mLFEU (0-0.59) 09/03/24 11:40 Sodium 138 mmol/L (136-145) 09/07/24 08:53 Potassium 3.7 mmol/L (3.5-5.1) 09/07/24 08:53 Chloride 105 mmol/L (98-107) 09/07/24 08:53 Carbon Dioxide 20 mmol/L (22-29) L 09/07/24 08:53 Anion Gap 16.7 (5-19) 09/07/24 08:53 BUN 2 mg/dL (6-20) L 09/07/24 08:53 Creatinine 0.7 mg/dL (0.5-0.9) 09/07/24 08:53 GFR Calculation 86.9 mL/min (90-130) L 09/07/24 08:53 Glucose 117 mg/dL (65-115) H 09/07/24 08:53 Estimat Average Glucose 105 09/03/24 11:40 Hemoglobin A1c 5.3 % (4.0-6.0) 09/03/24 11:40 Calculated Osmolality 283 mOsm/kg (285-295) L 09/07/24 08:53 Lactic Acid 2.5 mmol/L (0.5-2.2) H 09/03/24 11:40 Lactic Acid (Sepsis) 3.5 mmol/L (0.5-2.2) H 09/03/24 15:52 Lactate 0.9 mmol/L (0.5-2.2) 09/05/24 02:45 Calcium 8.4 mg/dL (8.5-10.5) L 09/07/24 08:53 Phosphorus 3.2 mg/dL (2.5-4.5) 09/06/24 04:45 Magnesium 1.6 mg/dL (1.7-2.3) L 09/06/24 04:45 Total Bilirubin 0.4 mg/dL (0.15-1.2) 09/07/24 08:53 Direct Bilirubin 0.20 mg/dL (0.00-0.30) 09/03/24 22:15 AST 44 U/L (0-32) H 09/07/24 08:53 ALT 30 U/L (0-33) 09/07/24 08:53 Alkaline Phosphatase 120 U/L (35-105) H 09/07/24 08:53 Creatine Kinase 42 U/L (26-192) 09/05/24 02:45 Troponin T Baseline < 6 ng/L (0-10) 09/03/24 15:52 Troponin T 120 Minute 6.00 ng/L (0-10) 09/03/24 18:42 Delta Troponin T 0.10372 ABS# (0-10) 09/03/24 18:42 Troponin T Hi Sens 6Hr 6.82 ng/L (0-10) 09/03/24 22:15 Troponin T Hi Sens 6Hr Delta 0.76956 ng/L (0-12) 09/03/24 22:15 C-Reactive Protein 3.0 mg/L (0.0-4.9) 09/06/24 04:45 NT-Pro-B Natriuret Pep 4298 pg/mL (0-125) H 09/06/24 04:45 Total Protein 5.2 g/dL (6.6-8.7) L 09/07/24 08:53 Albumin 3.4 g/dL (3.5-5.2) L 09/07/24 08:53 Globulin 1.8 g/dL (1.3-4.6) 09/07/24 08:53 Triglycerides 161 mg/dL (0-150) H 09/03/24 15:52 Cholesterol 115 mg/dL (0-200) 09/03/24 15:52 LDL Cholesterol, Calc 54 mg/dL (50-129) 09/03/24 15:52 HDL Cholesterol 29 mg/dL (60-100) L 09/03/24 15:52 LDL/HDL Ratio 1.86 RATIO (0.00-3.22) 09/03/24 15:52 Cholesterol/HDL Ratio 3.97 mg/dL (0.0-4.40) 09/03/24 15:52 Lipase 10 U/L (13-60) L 09/03/24 11:40 Procalcitonin 0.09 ng/mL (0-0.5) 09/06/24 04:45 TSH 2.01 uIU/mL (0.27-4.20) 09/03/24 11:40 Urine Color Yellow (Yellow) 09/03/24 12:02 Urine Appearance Clear (CLEAR) 09/03/24 12:02 Urine pH 6.5 (5-7) 09/03/24 12:02 Ur Specific [place] 1.005 (1.005-1.030) 09/03/24 12:02 Urine Protein Negative (Negative) 09/03/24 12:02 Urine Glucose (UA) Negative (Normal) 09/03/24 12:02 Urine Ketones Negative (Negative) 09/03/24 12:02 Urine Blood Negative (Negative) 09/03/24 12:02 Urine Nitrate Negative (Negative) 09/03/24 12:02 Urine Bilirubin Negative (Negative) 09/03/24 12:02 Urine Urobilinogen 0.2 mg/dL (Negative) 09/03/24 12:02 Ur Leukocyte Esterase Negative (Negative) 09/03/24 12:02 Urine RBC 0-2 /hpf (0-2) 09/03/24 12:02 Urine WBC 0-5 /hpf (0-5) 09/03/24 12:02 Ur Squamous Epith Cells 0-5 /hpf (0-5) 09/03/24 12:02 Amorphous Sediment Not Reportable 09/03/24 12:02 Urine Bacteria None seen /hpf (NONE) 09/03/24 12:02 Hyaline Casts 4.52 /lpf 09/03/24 12:02 Coronavirus (PCR) Negative (Negative) 09/03/24 11:30 Influenza A (PCR) Negative (Negative) 09/03/24 11:30 Influenza Type B (PCR) Negative (Negative) 09/03/24 11:30 RSV (PCR) Negative (Negative) 09/03/24 11:30 Blood Type A Positive 09/06/24 09:44 Rho(D) Type Rh positive 09/06/24 09:44 Antibody Screen Negative 09/06/24 09:44 Crossmatch See Detail 09/06/24 09:44 Vitals Last Vital Signs Temp 98.3 F 09/07/24 12:00 Pulse 112 H 09/07/24 12:00 Resp 15 09/07/24 12:00 BP 149/95 09/07/24 12:00 Pulse Ox 98 09/07/24 12:00 O2 Del Method Room Air 09/07/24 12:00 O2 Flow Rate 4 09/06/24 14:34 Discharge Plan Discharge Patient Disposition: Home Condition: Stable Prescriptions: New amoxicillin-pot clavulanate 875-125 mg Tablet 1 tab PO BID 5 Days Qty: 10 0RF Continued ergocalciferol (vitamin D2) 1,250 mcg (50,000 unit) capsule 1,250 mcg PO .weekly Qty: 12 1RF Rx Instructions: Tuesday folic acid 1 mg tablet 1 mg PO DAILY Qty: 90 1RF ferrous sulfate 325 mg (65 mg iron) tablet 325 mg PO BID Qty: 60 0RF tizanidine 4 mg tablet 4 mg PO Q8H PRN (Reason: muscle spasticity) Qty: 90 5RF pantoprazole 40 mg tablet,delayed release (DR/EC) 40 mg PO BID 30 Days Qty: 60 1RF sucralfate 100 mg/mL suspension 10 ml PO BID 30 Days Qty: 840 0RF clonidine HCl 0.1 mg tablet 0.1 mg PO BEDTIME doxepin 10 mg capsule 10 mg PO BEDTIME amitriptyline 50 mg tablet 50 mg PO BEDTIME ondansetron 8 mg tablet,disintegrating 8 mg PO TID PRN (Reason: Nausea) meclizine 25 mg tablet 25 mg PO TID paroxetine HCl 20 mg tablet 20 mg PO QAM metoprolol succinate 25 mg tablet extended release 24 hr 25 mg PO BEDTIME Held lisinopril 10 mg tablet 10 mg PO BID 30 Days Qty: 60 5RF Hold Instructions: Resume on 09/14/24. No Action (DME) pen needle, diabetic [Advocate Pen Needle] 33 gauge x 5/32 needle See Rx Instructions .Route Qty: 100 1RF Rx Instructions: As directed Discharge Orders: Discharge Order (Routine); Ordered 09/07/24 Ordered By: Roberto Carlos Kate Other Ambulatory Orders: MCT/Event Monitor 30 Days (Routine) Timeframe: 1 Day Facility: [facility] - Location: Radiology Ordered By: Roberto Carlos Kate Referrals: Julio Pritchett DO [Physician] - 2 weeks Annamarie Weiner MD [Hospitalist] - 1 month (adrenal adenoma, anemia ) Adán Jackman M.D [Physician] - 1 month Narda Gill FNP [Primary Care Provider] - (We have notified your physician's clinic of the need for a follow-up appointment to be scheduled. If you have not heard from them within the next 2 business days, please call them directly. ) Discharge Diet: Cardiac Discharge Activity: Resume usual activity Patient Instructions: GI Post Discharge Instructions w/ Anesthesia, Opioid Safety Activity Restrictions/Additional Instructions: - Please avoid NSAIDs -Please follow-up with primary care provider as outpatient for recheck hemoglobin in 1 week hemoglobin discharge 9.6 -Follow-up with Dr. Pritchett in 2 weeks -Please follow-up with oncology for your adrenal adenoma and your anemia -For your event monitor and your tachycardia please follow-up cardiology in 1 month Discharge Attestations Time Spent in Discharge Care*: greater than 30 min Quality Metrics Clinical Quality Measures [ No reported AMI, CVA or VTE this stay] Coding Level of Care Code 89863 Total time (in minutes) for Discharge: 45 Diagnoses Acute anemia D64.9 Iron deficiency anemia D50.9 Black stools K92.1
--- NOTE | 2024-09-07 14:37 | PC.NURSE ---
Discussed discharge with patient. Discussed new medication and continued medications. Went over all follow up appointments with patient. Patient verbalized understanding.
== END 2024-09-07 13:50 | disposition home or self-care (01) | DRG 871 ==
LOC: ER 11:14 → MEDSURG 16:09
PROVIDERS: Internal Medicine; Surgery; Admitting Provider Family Medicine; Emergency Provider Family Medicine; PCP Nurse Practitioner Family; Visit Provider Family Medicine
PROC: 0DJ08ZZ Inspection of Upper Intestinal Tract, Via Natural or Artificial Opening Endoscopic (ICD-10-PCS; principal; 2024-09-06 14:00)
DX: A41.9 Sepsis, unspecified organism (principal); J18.9 Pneumonia, unspecified organism; K92.1 Melena; D50.9 Iron deficiency anemia, unspecified; I10 Essential (primary) hypertension; F41.9 Anxiety disorder, unspecified; R74.01 Elevation of levels of liver transaminase levels; R11.2 Nausea with vomiting, unspecified
CPT/HCPCS: 36415; 36430; 43239; 70450; 71045; 71275; 74177; 76536; 76705; 80048; 80053; 80061; 80076; 81001; 82550; 83036; 83605; 83690; 83735; 83880; 84100; 84145; 84443; 84484; 85014; 85018; 85025; 85378; 85610; 85652; 86140; 86850; 86900; 86920; 87040; 87637; 88305; 88342; 93005; 93306; 94664; 96365; 96372; 96375; 99285; J0780; J1650; J1940; J2270; J2470; J2543; J2704; J3370; J3372; J3475; J3490; J7030; J7040; J7050; P9040; P9046

== ENCOUNTER → 2024-09-21 12:05 | Outpatient (BNVA) | payer BC, SELFPAY | PROVIDERS: Family Provider Nurse Practitioner Family; PCP Nurse Practitioner Family; Visit Provider Nurse Practitioner Family | DX: Z91.014 Allergy to mammalian meats (principal); Z91.018 Allergy to other foods | CPT/HCPCS: 80053; 85025; 86003; 86008 ==

== ENCOUNTER 2024-11-08 08:30 | Oncology outpatient (recurring) (ONCR) | payer BC, SELFPAY ==
[2024-10-18 10:58] LABS: Basophils % 0.2 %; Eosinophils % 0.2 %; Hematocrit 30.9 % (36-47); Lymphocytes % 22.5 %; Mean Corpuscular HGB Conc 32.7 g/dL (30-55); Mean Corpuscular Hemoglobin 31.6 pg (27-33); Mean Corpuscular Volume 96.6 fl (85-98); Mean Platelet Volume 9.3 fL (7.4-10.4); Monocytes # 0.6 10^3/uL (0.2-0.9); Neutrophils # 6.28 10^3/uL (1.8-7.7); Neutrophils % 69.5 %; Nucleated Red Blood Cells % 0 %; Platelet Count 465 10^3/cmm (157-399); Red Cell Distribution Width 14.8 % (12.1-15.1); White Blood Count 9.03 10^3/uL (3.29-11.43)
[2024-10-18 11:05] LABS: Erythrocyte Sedimentation Rate 6 mm/hr (0-15)
[2024-10-18 11:18] LABS: Alanine Aminotransferase 41 U/L (0-33); Alkaline Phosphatase 215 U/L (35-105); Anion Gap 12.6 (5-19); Aspartate Amino Transferase 38 U/L (0-32); Blood Urea Nitrogen 6 mg/dL (6-20); C Reactive Protein 62.7 mg/L (0.0-4.9); Calcium 8.3 mg/dL (8.5-10.5); Carbon Dioxide 22 mmol/L (22-29); Chloride 98 mmol/L (98-107); Ferritin 248 ng/mL (15-150); Globulin 2.9 g/dL (1.3-4.6); Glomerular Filtration Rate 86.9 mL/min (90-130); Glucose 108 mg/dL (65-115); Iron 42 ug/dL (37-145); Lactate Dehydrogenase 188 U/L (135-214); Osmolality Calculated 266 mOsm/kg (285-295); Percent Saturation 48.2 % (20-50); Phosphorus 3.1 mg/dL (2.5-4.5); Potassium 3.6 mmol/L (3.5-5.1); Sodium 129 mmol/L (136-145); Total Bilirubin 0.6 mg/dL (0.15-1.2); Total Iron Binding Capacity 87 mcg/dl; Total Protein 5.9 g/dL (6.6-8.7); Unsaturated Iron Binding 45 ug/dL (112-347); Uric Acid 4.4 mg/dL (2.4-5.7)
[2024-10-18 11:33] LABS: Vitamin B12 866 pg/mL (232-1245)
[2024-10-18 11:37] LABS: Immunoglobulin IGA 409 mg/dL (70-400); Immunoglobulin IGG 1167 mg/dL (700-1600); Immunoglobulin IGM 93 mg/dL (40-230)
[2024-10-18 11:41] LABS: Folate Level > 20.0 ng/mL (4.8-37.3)
[2024-10-19 08:15] LABS: PROTEIN, TOTAL 5.7 g/dL (6.1-8.1)
[2024-10-20 10:40] LABS: ALBUMIN 2.7 g/dL (3.8-4.8); ALPHA 1 GLOBULIN 0.6 g/dL (0.2-0.3); ALPHA 2 GLOBULIN 0.7 g/dL (0.5-0.9); BETA 1 GLOBULIN 0.2 g/dL (0.4-0.6); BETA 2 GLOBULIN 0.4 g/dL (0.2-0.5); GAMMA GLOBULIN 1.1 g/dL (0.8-1.7)
[2024-10-22 15:56] LABS: Immunofixation Serum Normal pattern.
[2024-10-23 08:25] LABS: Methylmalonic Acid 158 nmol/L (55-335)
[2024-11-08 09:04] LABS: Basophils % 0.2 %; Hematocrit 31.8 % (36-47); Lymphocytes # 1.5 10^3/uL (0.8-4.8); Lymphocytes % 26.4 %; Mean Corpuscular HGB Conc 28.9 g/dL (30-55); Mean Corpuscular Hemoglobin 31.5 pg (27-33); Mean Corpuscular Volume 108.9 fl (85-98); Mean Platelet Volume 9.6 fL (7.4-10.4); Monocytes # 0.4 10^3/uL (0.2-0.9); Monocytes % 6.3 %; Neutrophils # 3.89 10^3/uL (1.8-7.7); Neutrophils % 66.6 %; Nucleated Red Blood Cells % 0.3 %; Platelet Count 304 10^3/cmm (157-399); Red Blood Count 2.92 10^6/uL (3.85-5.65); Red Cell Distribution Width 14.6 % (12.1-15.1); White Blood Count 5.84 10^3/uL (3.29-11.43)
[2024-11-08 09:23] LABS: Alanine Aminotransferase 93 U/L (0-33); Albumin Level 2.2 g/dL (3.5-5.2); Alkaline Phosphatase 181 U/L (35-105); Anion Gap 20.2 (5-19); Aspartate Amino Transferase 47 U/L (0-32); Blood Urea Nitrogen 6 mg/dL (6-20); Calcium 8.3 mg/dL (8.5-10.5); Carbon Dioxide 13 mmol/L (22-29); Chloride 103 mmol/L (98-107); Globulin 3.4 g/dL (1.3-4.6); Glomerular Filtration Rate 74.2 mL/min (90-130); Glucose 122 mg/dL (65-115); Iron 64 ug/dL (37-145); Osmolality Calculated 275 mOsm/kg (285-295); Potassium 3.2 mmol/L (3.5-5.1); Sodium 133 mmol/L (136-145); Total Bilirubin 1.3 mg/dL (0.15-1.2); Total Protein 5.6 g/dL (6.6-8.7)
[2024-11-08 09:36] LABS: Total Iron Binding Capacity 81 mcg/dl; Unsaturated Iron Binding < 17 ug/dL (112-347)
[2024-11-08 11:56] LABS: Reticulocyte % 2.7 % (0.5-2.0)
[2024-11-08 12:41] LABS: Folate Level 9.9 ng/mL (4.8-37.3)
[2024-11-08 12:49] LABS: Ferritin 561 ng/mL (15-150); Vitamin B12 1858 pg/mL (232-1245)
[2024-11-08] MEDS: sodium chloride 0.9% 1,000 ML 999 ML IV (13:00)
[2024-11-08] MEDS: acetaminophen 325 mg Tablet 650 MG PO (13:57)
[2024-11-12 12:18] LABS: Erythropoietin 41.7 mIU/mL (2.6-18.5)
[2024-11-12 16:05] LABS: Tissue Transglutaminse AB IGA <1.0 U/mL
[2024-11-13 13:10] LABS: Endomysial IgG Antibody Screen NEGATIVE (NEGATIVE)
== END 2024-11-12 23:59 | disposition home or self-care (01) ==
PROVIDERS: Family Provider Nurse Practitioner Family; PCP Nurse Practitioner Family; Visit Provider Internal Medicine
DX: Z53.9 Procedure and treatment not carried out, unspecified reason; E53.8 Deficiency of other specified B group vitamins; D64.9 Anemia, unspecified; E55.9 Vitamin D deficiency, unspecified; R52 Pain, unspecified; R53.83 Other fatigue; K21.9 Gastro-esophageal reflux disease without esophagitis; I10 Essential (primary) hypertension
CPT/HCPCS: 36415; 80053; 82607; 82668; 82728; 82746; 82784; 83010; 83540; 83550; 83615; 83921; 84100; 84155; 84165; 84550; 85025; 85045; 85651; 86140; 86334; 86364; 96360; J7030; J9999

== ENCOUNTER 2024-11-08 14:22 | Emergency (ER) | payer BC, SELFPAY ==
[2024-11-08 14:25] VITALS: BP 85/45; PULSE 126; TEMP 36.7; O2SAT 97; BMI 21.8
[2024-11-08 14:57] LABS: Basophils % 0.2 %; Lymphocytes # 1.4 10^3/uL (0.8-4.8); Mean Corpuscular HGB Conc 31.1 g/dL (30-55); Mean Corpuscular Hemoglobin 31.3 pg (27-33); Mean Corpuscular Volume 100.7 fl (85-98); Mean Platelet Volume 9.5 fL (7.4-10.4); Monocytes # 0.3 10^3/uL (0.2-0.9); Monocytes % 4.8 %; Neutrophils # 4.66 10^3/uL (1.8-7.7); Neutrophils % 72.1 %; Nucleated Red Blood Cells % 0.5 %; Platelet Count 311 10^3/cmm (157-399); Red Blood Count 2.78 10^6/uL (3.85-5.65); Red Cell Distribution Width 14.5 % (12.1-15.1); White Blood Count 6.46 10^3/uL (3.29-11.43)
[2024-11-08 15:14] LABS: Alanine Aminotransferase 93 U/L (0-33); Albumin Level 2.8 g/dL (3.5-5.2); Alkaline Phosphatase 194 U/L (35-105); Anion Gap 17.2 (5-19); Aspartate Amino Transferase 52 U/L (0-32); Blood Urea Nitrogen 6 mg/dL (6-20); Carbon Dioxide 19 mmol/L (22-29); Chloride 102 mmol/L (98-107); Globulin 3.3 g/dL (1.3-4.6); Glomerular Filtration Rate 64.8 mL/min (90-130); Glucose 129 mg/dL (65-115); Osmolality Calculated 279 mOsm/kg (285-295); Potassium 3.2 mmol/L (3.5-5.1); Sodium 135 mmol/L (136-145); Total Bilirubin 1.7 mg/dL (0.15-1.2); Total Protein 6.1 g/dL (6.6-8.7)
--- NOTE | 2024-11-08 15:33 | ED_ITS ---
HPI - Recheck/Abnormal Lab/Rx 2 General: Chief Complaint: Recheck/Abnormal Lab/Rx Stated Complaint: carbon dioxide low per Oncology Time Seen by Provider: 11/08/24 15:16 History of Present Illness: 54-year-old female presents emergency ro om directed here by hematology. She is being seen there for anemia. She got some IV fluids and had some labs done she had a mild metabolic acidosis with an anion gap that was elevated and a carbon dioxide of 13 this was noticed noted after she evidently left the infusion center she received a liter of fluids. On the labs reviewed she was directed to the emergency room Related Data Home Medications ?Medication ?Instructions ?Recorded ?Confirmed clonidine HCl 0.1 mg tablet 0.1 mg PO BEDTIME 05/10/24 11/08/24 amitriptyline 50 mg tablet 50 mg PO BEDTIME 09/03/24 0 11/08/24 doxepin 10 mg capsule 10 mg PO BEDTIME 09/03/24 metoprolol succinate 25 mg 25 mg PO BEDTIME 09/03/24 0 11/08/24 tablet,extended release 24 hr paroxetine HCl 20 mg tablet 20 mg PO QAM 09/03/2410/14 Previous Rx's ?Medication ?Instructions ?Recorded lisinopril 10 mg tablet 10 mg PO BID 30 days #60 tab s 04/27/24 Held on 09/07/24. Instructions: Resume on 09/14/24. pen needle, diabetic 33 gauge x #100 ea 04/27/24 (Advocate Pen Needle) pantoprazole 40 mg tablet,delayed 40 mg PO BID 30 days #60 tabs 05/10/24 release ergocalciferol (vitamin D2) 1,250 1,250 mcg PO .weekly #12 caps 07/27/24 mcg (50,000 unit) capsule ferrous sulfate 325 mg (65 mg 325 mg PO BID #60 tabs 1 09/27/23 iron) tablet folic acid 1 mg tablet 1 mg PO DAILY #90 tabs 07/27 scopolamine base 1 mg over 3 days 1 patch transdermal Q3D PRN nausea 09/21/24 transdermal patch and vomiting #24 ea tizanidine 4 mg tablet See Rx Instructions .Route 0 10/09/24 .COMPLEX #90 tabs ondansetron 8 mg disintegrating See Rx Instructions .R oute 10/25/24 tablet .COMPLEX #20 tabs meclizine 25 mg tablet 25 mg PO TID #30 tabs Allergies Allergy/AdvReac Type Severity Reaction Status Date / Time No Known Allergies Allergy Verified 11/08/24 09:06 Review of Systems 2 Const: Denies: fever(s) or chills Card: Denies: chest pain Resp: Denies: dyspnea GI: Denies: abdominal pain : Denies: dysuria, urinary frequency or urinary urgency Musc: Denies: neck pain or back pain Skin/Breast: Denies: rash PFSH ED 2 PFSH: Medical History Anxiety Diagnosed in 2019 and has been on medication as needed managed by her primary care provider. She does not have a therapist. No pertinent past medical history Denies diabetes, asthma, hypertension, seizures, DVT/PE PCP: [facility] Surgical History History of foot surgery x 2 -2010--fracture of right ankle with surgery -2010--fracture of left leg with surgery History of tubal ligation Laparoscopic procedure done in 1999 History of dilation and curettage --done for retained placenta after delivery of her demise Family History Father Hypertension Stroke Heart disease Family/Other Hyperlipidemia paternal aunt Breast cancer maternal cousin, diagnosed at age 61 Uterine cancer paternal aunt, diagnosed in her 40s or 50s Heart disease paternal aunt Denies family history of Ovarian cancer Diabetes Thyroid disease Social History Smoking and tobacco/nicotine status: never used tobacco/nicotine Quit status (tobacco/nicotine): has quit using Lives independently: Yes Household members: spouse Housing: House Marital status: Current occupational status: employed Sexually active: Yes Current gender identity: Female Physical Exam 2 Const: GENERAL APPEARANCE: cooperative ORIENTATION/CONSCIOUSNESS: Yes awake, Yes oriented to person, Yes oriented to place and Yes oriented to time HENMT: COMMON NORMALS: normocephalic, atraumatic and hearing grossly normal bilaterally HEAD & SCALP: normocephalic and atraumatic Resp: COMMON NORMALS: normal respiratory effort, No retractions, No use of accessory muscles and clear to auscultation bilaterally AUSCULTATION: clear to auscultation bilaterally Cardio: COMMON NORMALS: regular rate, regular rhythm and No murmurs present (Cardio) RATE: regular rate RHYTHM: regular rhythm GI: COMMON NORMALS: Soft to palpation and No hepatosplenomegaly present A USCULTATION: Yes normoactive bowel sounds PALPATION: Yes Soft to palpation, No Tenderness to palpation present (GI), No Guarding due to palpation present (GI) and Yes No hepatosplenomegaly present Extremity: COMMON NORMALS: normal to inspection, capillary refill normal, no clubbing, cyanosis or edema, no calf tenderness and no pedal edema Neuro: SENSORIUM/ORIENTATION: Yes oriented to person, Yes oriented to place and Yes oriented to time Skin: COMMON NORMALS: no rashes or lesions noted GENERAL SKIN EXAM: no rashes or lesions noted Course 2 Vital Signs: Vital signs: Vital Signs Temperature 98.0 F 11/08/24 14:25 Pulse Rate 114 H 11/08/24 17:02 Blood Pressure 132/76 11/08/24 17:02 Pulse Oximetry 95 11/08/24 17:02 Oxygen Delivery Me thod Room Air 11/08/24 15:38 MDM - Recheck/Abnormal Lab/Rx Medical Decision Making Laboratory tests have mostly resolved with the fluids she was given earlier today and repeat testing does show anemia does not require hospitalization at this time ABG unremarkable. Sodium slightly low potassium slightly low carbon oxide 19. Patient otherwise feels fine nontoxic in appearance will discharge patient home have her follow-up with primary care next week. Can use antiemetics as previously prescribed Lab Data 11/08/24 14:49 11/08/24 14:49 Laboratory Results WBC 6.46 10^3/uL (3.29-11.43) 11/08/24 14:49 RBC 2.78 10^6/uL (3.85-5.65) L 11/08/24 14:49 Hgb 8.70 g/dL (11.27-16.99) L 11/08/24 14:49 Hct 28.0 % (36-47) L 11/08/24 14:49 MCV 100.7 fl (85-98) H D 11/08/24 14:49 MCH 31.3 pg (27-33) 11/08/24 14:49 MCHC 31.1 g/dL (30-55) D 11/08/24 14:49 RDW 14.5 % (12.1-15.1) 11/08/24 14:49 Plt Count 311 10^3/cmm (157-399) 11/08/24 14:49 MPV 9.5 fL (7.4-10.4) 11/08/24 14:49 Neut % (Auto) 72.1 % 11/08/24 14:49 Lymph % (Auto) 22.0 % 11/08/24 14:49 Holt % (Auto) 4.8 % 11/08/24 14:49 Eos % (Auto) 0.0 % 11/08/24 14:49 Baso % (Auto) 0.2 % 11/08/24 14:49 Neut # (Auto) 4.66 10^3/uL (1.8-7.7) 11/08/24 14:49 Lymph # (Auto) 1.4 10^3/uL (0.8-4.8) 11/08/24 14:49 Holt # (Auto) 0.3 10^3/uL (0.2-0.9) 11/08/24 14:49 Eos # (Auto) 0.0 10^3/uL (0.0-0.8) 11/08/24 14:49 Baso # (Auto) 0.0 10^3/uL (0.0-0.1) 11/08/24 14:49 Nucleated RBC % (auto) 0.5 % 11/08/24 14:49 Nucleated RBCs # 0.0 /100WBC 11/08/24 14:49 Specimen Type Arterial 11/08/24 15:50 Sample Site Radial, left 11/08/24 15:50 ABG pH 7.36 (7.35-7.45) 11/08/24 15:50 ABG pCO2 35.1 mmHg (35-45) 11/08/24 15:50 ABG pO2 70.4 mmHg (80.0-100.0) L 11/08/24 15:50 ABG PO2/FiO2 Ratio 335 11/08/24 15:50 ABG HCO3 19.7 mmol/L (22-26) L 11/08/24 15:50 ABG O2 Saturation 93.3 11/08/24 15:50 ABG Base Excess -5.3 mmol/L (-2.0-2.0) L 11/08/24 15:50 Dillon Test Pos 11/08/24 15:50 A-a O2 Gradient 4.6 mmHg (5-10) L 11/08/24 15:50 Hematocrit 24.6 % (37-47) L 11/08/24 15:50 Hgb O2 Saturation 91.2 % (95-100) L 11/08/24 15:50 Carboxyhemoglobin 0.4 %THgb (0.4-20.1) 11/08/24 15:50 Methemoglobin 1.9 % (0.4-1.5) H 11/08/24 15:50 Total Hemoglobin 8.0 g/dL (12-16) L 11/08/24 15:50 Sodium 135.0 mmol/L (131-143) 11/08/24 15:50 Potassium 3.1 mmol/L (3.5-5.0) L 11/08/24 15:50 Glucose 121.0 mg/dL (70-115) H 11/08/24 15:50 Ionized Calcium 1.2 mmol/L (1.1-1.4) 11/08/24 15:50 O2 Delivery Device Room air 11/08/24 15:50 FiO2 21.0 % 11/08/24 15:50 Sieve Repairer ID Broma 11/08/24 15:50 Sodium 135 mmol/L (136-145) L 11/08/24 14:49 Potassium 3.2 mmol/L (3.5-5.1) L 11/08/24 14:49 Chloride 102 mmol/L (98-107) 11/08/24 14:49 Carbon Dioxide 19 mmol/L (22-29) L 11/08/24 14:49 Anion Gap 17.2 (5-19) 11/08/24 14:49 BUN 6 mg/dL (6-20) 11/08/24 14:49 Creatinine 0.9 mg/dL (0.5-0.9) 11/08/24 14:49 GFR Calculation 64.8 mL/min (90-130) L 11/08/24 14:49 Glucose 129 mg/dL (65-115) H 11/08/24 14:49 Calculated Osmolality 279 mOsm/kg (285-295) L 11/08/24 14:49 Calcium 8.0 mg/dL (8.5-10.5) L 11/08/24 14:49 Total Bilirubin 1.7 mg/dL (0.15-1.2) H 11/08/24 14:49 AST 52 U/L (0-32) H 11/08/24 14:49 ALT 93 U/L (0-33) H 11/08/24 14:49 Alkaline Phosphatase 194 U/L (35-105) H 11/08/24 14:49 Total Protein 6.1 g/dL (6.6-8.7) L 11/08/24 14:49 Albumin 2.8 g/dL (3.5-5.2) L 11/08/24 14:49 Globulin 3.3 g/dL (1.3-4.6) 11/08/24 14:49 Serum Ketones Negative (Negative) 11/08/24 14:49 No radiology studies performed this visit Discharge Plan Discharge Patient Disposition: Home Clinical Impression: Gastroenteritis, Dehydration Condition: Stable Prescriptions: No Action ergocalciferol (vitamin D2) 1,250 mcg (50,000 unit) capsule 1,250 mcg PO .weekly Qty: 12 1RF Rx Instructions: Tuesday folic acid 1 mg tablet 1 mg PO DAILY Qty: 90 1RF ferrous sulfate 325 mg (65 mg iron) tablet 325 mg PO BID Qty: 60 0RF scopolamine base 1 mg over 3 days patch 3 day 1 patch transdermal Q3D PRN (Reason: nausea and vomiting) Qty: 24 0RF lisinopril 10 mg tablet 10 mg PO BID 30 Days Qty: 60 5RF (DME) pen needle, diabetic [Advocate Pen Needle] 33 gauge x 5/32 needle See Rx Instructions .Route Qty: 100 1RF Rx Instructions: As directed pantoprazole 40 mg tablet,delayed release (DR/EC) 40 mg PO BID 30 Days Qty: 60 1RF tizanidine 4 mg tablet See Rx Instructions .ROUTE .COMPLEX Qty: 90 1RF Dose Instruction: TAKE ONE TABLET BY MOUTH EVERY 8 HOURS NEEDED FOR muscle spasticity Rx Instructions: TAKE ONE TABLET BY MOUTH EVERY 8 HOURS NEEDED FOR muscle spasticity ondansetron 8 mg tablet,disintegrating See Rx Instructions .ROUTE .COMPLEX Qty: 20 0RF Dose Instruction: DISSOLVE ONE TABLET BY MOUTH THREE TIMES DAILY Rx Instructions: DISSOLVE ONE TABLET BY MOUTH THREE TIMES DAILY meclizine 25 mg tablet 25 mg PO TID Qty: 30 1RF clonidine HCl 0.1 mg tablet 0.1 mg PO BEDTIME doxepin 10 mg capsule 10 mg PO BEDTIME amitriptyline 50 mg tablet 50 mg PO BEDTIME paroxetine HCl 20 mg tablet 20 mg PO QAM metoprolol succinate 25 mg tablet extended release 24 hr 25 mg PO BEDTIME Discharge Orders: Discharge ED (Routine); Ordered 11/08/24 Ordered By: Hector Smith Referrals: Narda Gill FNP [Primary Care Provider] - Discharge Diet: Advance as tolerated Discharge Activity: Increase activity as tolerated Patient Instructions: Opioid Safety, Pain Management Activity Restrictions/Additional Instructions: Thank you for choosing [facility] for your healthcare needs today. It is very important that you follow up as instructed or that you return to the Emergency Department should you have concerns or if your condition changes or worsens in any way. You are seen in the emergency room after having abnormal labs earlier today that they had already largely improved after the IV fluids you are given. Your liver enzymes are still elevated this been worked up in the past and did not have any significant findings we will discharge you home suspect the nausea and vomiting was his gastroenteritis which caused dehydration. Will discharge you home with clear liquid diet continue to use the antiemetics you are previously prescribed as needed follow-up with oncology and your primary care doctor. Print Language: Cook Islander Coding Level of Care Code ED Developer Programmer Analyst for [employer]
[2024-11-08 15:38] VITALS: BP 106/74; PULSE 110; O2SAT 96
[2024-11-08 16:01] LABS: ABG PCO2 35.1 mmHg (35-45); ABG PH Result 7.36 (7.35-7.45); Alveolar-Arterial Oxygen Gradi 4.6 mmHg (5-10); Arterial Blood Gas Hematocrit 24.6 % (37-47); Base Excess ABG -5.3 mmol/L (-2.0-2.0); Blood Gas Allen Test Pos; Blood Gas Operator Identificat BROMA; Blood Gas Sample Site Radial, left; Blood Gas Sample Type Arterial; Carboxyhemoglobin 0.4 %THgb (0.4-20.1); HCO3 ABG 19.7 mmol/L (22-26); HGB O2 Sat 91.2 % (95-100); Ionized Calcium Level - ABG 1.2 mmol/L (1.1-1.4); Methemoglobin 1.9 % (0.4-1.5); Oxygen Device ROOM AIR; Oxygen Saturation ABG 93.3; PO2 ABG 70.4 mmHg (80.0-100.0); PO2 FiO2 Ratio Arterial Blood 335; Potassium Level - ABG 3.1 mmol/L (3.5-5.0)
[2024-11-08 16:14] LABS: Ketone (Acetest) Serum Negative (Negative)
[2024-11-08 17:02] VITALS: BP 132/76; PULSE 114; O2SAT 95
== END 2024-11-08 17:03 | disposition home or self-care (01) ==
PROVIDERS: Emergency Medicine; Emergency Provider Family Medicine; Family Provider Nurse Practitioner Family; PCP Nurse Practitioner Family
DX: K52.9 Noninfective gastroenteritis and colitis, unspecified (principal); E86.0 Dehydration
CPT/HCPCS: 36415; 36600; 80051; 80053; 82009; 82330; 82805; 85025; 99283